=== PATIENT | male | born 1960 | race Caucasian/White ===

== ENCOUNTER 2019-10-29 07:22 | Outpatient (CLI) | payer BC, SELFPAY ==
--- NOTE | ~2019-10-29 | MR_ITS ---
EXAMINATION: MR brain/brain stem wo/w con DATE: 10/29/2019 08:38 INDICATION: Memory loss. Dementia. TECHNIQUE: Magnetic resonance imaging (MRI) of the brain and brainstem was performed . without and wi th 20 mL Multihance intravenous contrast. Sequences included sagittal and axial T1-weighted SE, axial diffusion-weighted FS SE, axial T2*-weighted GRE, axial T2-weighted FLAIR, and axial T2-weighted FSE . Postcontrast axial and coronal T1-weighted SE was obtained. Apparent diffusion coefficient (ADC) ma ps were created. COMPARISON: None. FINDINGS: There are no areas of restricted diffusion to suggest acute infarction. Incidental approximately 3.0 x 1.8 x 1.7 cm arachnoid cyst at the anterior margin of the sylvian fissure following CSF signal on a ll sequences which exerts mild mass effect upon the anterior margin of the left temporal lobe. No int racranial hemorrhage or other abnormal intracranial mass lesion. There are scattered areas of nonspec ific increased T2-weighted signal intensity in the cerebral white matter, predominantly involving the deep and periventricular white matter which is within normal limits for age. There are no intraparen chymal signal abnormalities seen on the other pulse sequences. The ventricles are symmetric and dania l in size. There are no abnormal extra-axial fluid collections. Flow voids are seen in the cerebral a rteries on the T2-weighted sequences consistent with their expected patency. Mild mucoperiosteal thic kening in the left maxillary and bilateral ethmoid sinuses. Visualized orbits and soft tissues are un remarkable. There are no areas of abnormal enhancement on the post contrast images. IMPRESSION: 1. Normal aging brain with small arachnoid cyst at the left sylvian fissure. Reviewed, dictated and finalized at location A.
[2019-10-29 07:42] LABS: Estimated Glomerular Filt Rate > 60
== END 2019-10-29 07:23 | disposition home or self-care (01) ==
LOC: CHSIMG 07:24
PROVIDERS: PCP Internal Medicine; Visit Provider Internal Medicine
DX: R41.3 Other amnesia (principal); F03.90 Unspecified dementia, unspecified severity, without behavioral disturbance, psychotic disturbance, mood disturbance, and anxiety
CPT/HCPCS: 70553; A9577

== ENCOUNTER 2022-07-21 14:55 | Emergency (ER) | payer BC, SELFPAY ==
[2022-07-21 14:57] VITALS: BP 124/69; PULSE 86; RESP 16; TEMP 36.6; O2SAT 100
--- NOTE | 2022-07-21 15:03 | ED.ANIMALBIT ---
HPI - Animal Bite General Chief Complaint: Animal Bite Stated Complaint: dog bite to lip Time Seen by Provider: 07/21/22 15:01 Source: patient and family Mode of arrival: ambulatory Limitations: no limitations History of Present Illness HPI narrative: 62 years old white male had a bug bite to lower lip prior to arrival, dog sleeps with patient and nipped the patient in lip. Fully immunized. Unknown tetanus shot for the patient. No other injuries. Related Data Allergies Allergy/AdvReac Type Severity Reaction Status Date / Time No Known Allergies Allergy Unverified 07/21/22 14:56 Review of Systems Review of Systems: All systems reviewed & are unremarkable except as noted in HPI and below PMFSH Family History Family History Mother Family history of malignant neoplasm Father Family history of heart disease in male family member before age 55 Other Hypertension Social History Social History Smoking status: Never smoker Alcohol intake: current Exam Narrative: General appearance: Well-developed, well-nourished Skin: Normal color Eyes: Clear conjunctiva ENT: Oropharynx normal, ears normal, nose normal, lower lip laceration Neck: Supple, nontender Neurologic: Alert and oriented ?3, 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 1 cm laceration, irregular, subcutaneous, noncontaminated, no active bleeding Course Reevaluation(s) Reevaluation #1: Patient feeling much better after suture repair, received a tetanus shot, 1 dose of Augmentin prior to discharge patient Date: 07/21/22 Time: 15:49 Vital Signs Vital signs: Vital Signs Temperature 36.6 C 07/21/22 14:57 Pulse Rate 86 07/21/22 14:57 Respiratory Rate 16 07/21/22 14:57 Blood Pressure 124/69 07/21/22 14:57 Pulse Oximetry 100 07/21/22 14:57 Temperature 36.6 C 07/21/22 14:57 Pulse Rate 86 07/21/22 14:57 Respiratory Rate 16 07/21/22 14:57 Blood Pressure 124/69 07/21/22 14:57 Pulse Oximetry 100 07/21/22 14:57 Procedures Laceration Laceration 1: Date: 07/21/22 Time: 15:50 Site: lip (Left side of lower lip ,internally) Side (If applicable): left Size (cm): 1 Description: stellate, irregular, clean and other (Does not involve the vermilion border) Depth: simple, single layer Local Anesthetic: lidocaine 2% and with epi Amount of anesthesia used (mL): 1 Pre-repair: wound explored and irrigated ====== Skin Level ====== Skin layer closed with: vicryl and other (Chromic gut) Size (cm): 6-0 Number of sutures: 4 Technique: simple, interrupted ====== Subcutaneous Layer ====== ====== Muscle Layer ====== ====== Tendon Layer ====== MDM - Animal Bite MDM Narrative Medical decision making narrative: Dog bite to lower lip Wound was cleaned very well which is most important intervention at this time. Wound closure not recommended for all wounds, except if the wounds on the face. Antibiotic prophylaxis also is recommended for lip laceration. Infection is high likely, patient will be discharged to follow-up with Dr. Goodman as outpatient. Augmentin started prior to discharge. Patient tolerated the procedure well. Differential Diagnosis Differential diagnosis: Likely dog bite Critical Care Time Critical Care Time Critical Care Time: No Discharge Plan Discharge Clinical Impression: Bite by animal, Dog bite Patient Disposition: Home, Self-Care Condition: Improved Instructio
[2022-07-21] MEDS: TETANUS,DIPHTHERIA,AC PERTUSSIS ADULT (0.5 ML) BOOSTRIX IM (15:40)
[2022-07-21] MEDS: AMOXICILLIN/CLAVULANATE K 875-125 MG TAB 1 TABLET PO (15:44)
== END 2022-07-21 15:51 | disposition home or self-care (01) ==
PROVIDERS: Emergency Provider Emergency Medicine
DX: S01.551A Open bite of lip, initial encounter (principal); Z23 Encounter for immunization; W54.0XXA Bitten by dog, initial encounter
CPT/HCPCS: 12011; 90471; 90715; 99283; A9270

== ENCOUNTER 2022-12-20 21:53 | Emergency (ER) | payer BC, SELFPAY ==
[2022-12-20 21:55] VITALS: BP 124/77; PULSE 73; RESP 20; TEMP 36.6; O2SAT 99
--- NOTE | 2022-12-20 22:49 | ED.GENADULT ---
[facility] - General Adult General Chief complaint: Animal Bite Stated complaint: dog bite to lower lip Time Seen by Provider: 12/20/22 22:23 Source: patient Mode of arrival: ambulatory Limitations: no limitations History of Present Illness HPI narrative: This is a 62-year-old male who presents to the ED with chief complaint of a right lower lip laceration occurring just prior to arrival. Patient states he was playing with his new puppy who is 5 months old. Reports that she was overstimulated after playing with another dog and jumped up and bit his lip when he grabbed her. Denies any further site of pain or injury. States tetanus is up-to-date. Related Data Allergies Allergy/AdvReac Type Severity Reaction Status Date / Time No Known Allergies Allergy Unverified 12/20/22 22:02 Review of Systems Review of Systems: All systems as dictated in [facility] Family History Family History Mother Family history of malignant neoplasm Father Family history of heart disease in male family member before age 55 Other Hypertension Social History Social History Smoking status: Never smoker Alcohol intake: current Exam Narrative: GENERAL: Well-appearing, well-nourished, and in no acute distress. HEAD: Normocephalic, atraumatic. EYES: PERRLA and EOMI. ENT: Nares clear, no rhinorrhea or epistaxis. Mucous membranes moist. Oropharynx without tonsillar hypertrophy exudate or other lesions. NECK: Supple. No adenopathy or masses. CHEST: No respiratory distress. Clear to auscultation. No wheezes rales or rhonchi HEART: Regular rate and rhythm. No murmur heard. Normal peripheral pulses. ABDOMEN: Soft, nontender, nondistended, normal active bowel sounds. MSK: Normal range of motion. No edema. SKIN: 1 cm laceration to the right lower lip. The superiormost aspect very minimally crosses the vermilion border. No active bleeding. NEURO: Alert and oriented x3. No focal deficits. PSYCH: Normal mood and affect. Course Vital Signs Vital signs: Vital Signs Temperature 97.9 F 12/20/22 21:55 Pulse Rate 73 12/20/22 21:55 Respiratory Rate 20 10/28/23 21:55 Blood Pressure 124/77 10/28/23 21:55 Pulse Oximetry 99 12/20/22 21:55 Oxygen Delivery Room Air 12/20/22 21:55 Temperature 97.9 F 12/20/22 21:55 Pulse Rate 73 12/20/22 21:55 Respiratory Rate 20 12/20/22 21:55 Blood Pressure 124/77 12/20/22 21:55 Pulse Oximetry 99 12/20/22 21:55 Oxygen Delivery Room Air 12/20/22 21:55 Procedures Laceration Laceration 1: Date: 12/20/22 Time: 23:24 Site: lip (Lower) Side (If applicable): right Size (cm): 1 Description: linear and clean Depth: simple, single layer Local Anesthetic: lidocaine 1% Amount of anesthesia used (mL): 1 Pre-repair: wound explored, irrigated extensively and deep structures intact ====== Skin Level ====== Skin layer closed with: nylon Size (cm): 6-0 Number of sutures: 3 Technique: simple, interrupted ====== Subcutaneous Layer ====== ====== Muscle Layer ====== ====== Tendon Layer ====== Medical Decision Making MDM Narrative Medical decision making narrative: This is a 62-year-old male who presents to the ED with chief complaint of dog bite injury to the right lower lip. Vitals are normal. Exam shows a 1 cm laceration to the right lower lip. There is very slight vermilion border involvement. The laceration is not through and through. It was well irrigated and cleaned here in the ED. Sutured with 6-0 nylon. Laceration instructions given. Augmentin prescription given. Pt will be discharged in stable condition. Return precautions given and supportive measures discussed. Pt is understanding and agreeable with plan for discharge and follow-up with PCP. V
[2022-12-20] MEDS: AMOXICILLIN/CLAVULANATE K 875-125 MG TAB 1 TABLET PO (23:38)
== END 2022-12-20 23:43 | disposition home or self-care (01) ==
PROVIDERS: Emergency Provider Physician Assistant
DX: S01.551A Open bite of lip, initial encounter (principal); W54.0XXA Bitten by dog, initial encounter
CPT/HCPCS: 12001; 99283; A9270

== ENCOUNTER 2024-03-12 11:57 | Emergency (ER) | payer BC, SELFPAY ==
--- NOTE | ~2024-03-12 | CT_ITS ---
EXAMINATION: CT facial bones wo con DATE: 03/12/2024 12:57 INDICATION: Left mandibular mass. TECHNIQUE: Computed tomography (CT) of the facial bones and maxillofacial region was performed withou t intravenous contrast. Automated exposure control and iterative reconstruction technique were employ ed. The dose-length product was 414.92 mGy-cm. COMPARISON: None. FINDINGS: There is mild mucosal thickening in the paranasal sinuses. There is no abnormal mass. There is severe cervical spondylosis. IMPRESSION: 1. No abnormal mass. Reviewed, dictated and finalized at location A. EY STATISTICIAN IMPRESSION: 1. No abnormal mass.
--- NOTE | ~2024-03-12 | CT_ITS ---
EXAMINATION: CT soft tissue neck wo con DATE: 03/12/2024 12:58 INDICATION: Painful swallowing. Enlarged cervical lymph nodes. TECHNIQUE: Computed tomography (CT) of the neck was performed without intravenous contrast. Automated exposure control and iterative reconstruction technique were employed. The dose-length product was 4 49.67 mGy-cm. COMPARISON: None FINDINGS: There is mild scarring at the lung apices. There are no pathologically enlarged lymph nodes . The pharynx and larynx are normal. There is mild mucosal thickening in the paranasal sinuses. The m astoid air cells are normal. There is severe cervical spondylosis. IMPRESSION: 1. No etiology for the patient's symptoms. 2. No lymphadenopathy. Reviewed, dictated and finalized at location A. MED SURG
--- NOTE | ~2024-03-12 | XR_ITS ---
EXAMINATION: XR chest 1V portable Exam Date/Time: 03/12/2024 15:05 PROGRAM DEVELOPMENT MANAGER HISTORY: possible aspiration Comparison: None. RESULT: Lines, tubes, and devices: None. Lungs and pleura: Segmental left medial basilar and subsegmental right basilar airspace disease, petey gs otherwise clear. Cardiomediastinal silhouette: Unremarkable. Other: No acute osseous or upper abdominal finding. IMPRESSION: Bibasilar atelectasis/consolidation. Reviewed, dictated and finalized at location K. RAM DEVELOPMENT MANAGER
[2024-03-12 11:59] VITALS: BP 97/62; PULSE 101; RESP 18; TEMP 36.6; O2SAT 97
--- NOTE | 2024-03-12 12:15 | PC.NURSE ---
AT THE BEDSIDE ANSWERING QUESTIONS FOR PATIENT. PATIENT IS NON VERBAL, ALZHEIMERS
--- NOTE | 2024-03-12 12:41 | PC.NURSE ---
PATIENT TRANSPORTED TO RADIOLOGY VIA STRETCHER
[2024-03-12 12:43] LABS: Basophils Absolute Auto 0.04 K/mm3 (0.00-0.10); Basophils Percent Auto 0.5 % (0.0-1.0); Eosinophils Absolute Auto 0.04 K/mm3 (0.02-0.50); Eosinophils Percent Auto 0.5 % (1.0-6.0); Hematocrit 37.7 % (40.0-54.0); Hemoglobin 12.6 g/dL (14.0-18.0); Immature Granulocyte Absolute 0.16 K/mm3 (0.00-0.00); Lymphocytes Percent Auto 12.4 % (18.0-42.0); Mean Corpuscular HGB Conc 33.4 g/dL (32-36); Mean Corpuscular Hemoglobin 29.6 pg (27.0-31.0); Mean Corpuscular Volume 88.7 fL (78.0-102.0); Mean Platelet Volume 10.1 fl (8.7-11.0); Monocytes Absolute Auto 0.89 K/mm3 (0.10-0.90); Neutrophils Absolute Auto 5.95 K/mm3 (1.70-7.20); Neutrophils Percent Auto 73.6 % (50.0-70.0); Platelet Count Result 201 K/mm3 (150-420); Red Blood Count 4.25 M/mm3 (4.70-6.10); Red Cell Distribution Width 12.9 % (11.6-14.4); White Blood Count 8.1 K/mm3 (4.8-10.8)
[2024-03-12] MEDS: SODIUM CHLORIDE 0.9% IV 1,000 ML 999 ML IV CONT ×2 (12:57→14:51)
[2024-03-12 12:58] LABS: Alanine Aminotransferase 119 U/L (16-63); Albumin Level 2.8 g/dL (3.4-5.0); Alkaline Phosphatase 199 U/L (46-116); Anion Gap 10 mmol/L (4-12); Aspartate Amino Transferase 90 U/L (15-37); Bilirubin,Total 0.7 mg/dL (0.00-1.00); Blood Urea Nitrogen 77 mg/dL (7-18); Calcium 10.8 mg/dL (8.5-10.1); Carbon Dioxide 27 mmol/L (21-32); Chloride 100 mmol/L (98-108); Estimated CRCL calculation 42 ml/min; Estimated Glomerular Filt Rate 37; Glucose 103 mg/dL (70-99); Osmolality Calculated 307 mOsm/kg (285-295); Sodium 137 mmol/L (136-145); Total Protein 7.2 g/dL (6.4-8.2)
--- NOTE | 2024-03-12 13:23 | PC.NURSE ---
Addendum entered by Rachel Mills RN 03/12/24 15:15: CORRECTION. CONDOM CATH WAS PLACED. NOT A LUU CATHETER Original Note: RESTING ON STRETCHER WITH FAMILY AT HIS SIDE. CHECKED LUU BAG FOR URINE OUTPUT. NO URINE OUTPUT AT THIS TIME. FAMILY REPORTS THAT HE HAS NOT HAD MUCH TO DRINK IN THE LAST 2 DAYS.
--- NOTE | 2024-03-12 14:31 | PC.NURSE ---
URINE TAKEN DOWN TO LAB
--- NOTE | 2024-03-12 14:33 | PC.NURSE ---
FAMILY REPORTS THAT PATIENT HAS SEEMED TO PERK UP AFTER IV FLUIDS. FAMILY REQUESTED WATER FOR PATIENT TO DRINK. TAKEN TO ROOM PER DR SUAREZ.
[2024-03-12 14:48] LABS: Add Urine Microscopic? YES; Appearance Urine Clear (Clear); Bilirubin Urine Negative (Negative); Blood Urine Trace-intact (Negative); Color Urine Light Yellow (Yellow); Glucose Urine UA Negative (Negative); Ketones Urine Negative (Negative); Leukocyte Esterase Ur Negative LEU/UL (Negative); Nitrate Urine Negative (Negative); Protein Urine 1+ (Negative); Urobilinogen Urine 0.2 mg/dL (0.2-1.0); pH Urine 5.5 (5.0-8.0)
--- NOTE | 2024-03-12 14:53 | PC.NURSE ---
COVID AND STREP SWAB TAKEN TO LAB. DR SUAREZ AT THE BEDSIDE
[2024-03-12 15:01] VITALS: BP 114/73; PULSE 82; RESP 18; O2SAT 99
--- NOTE | 2024-03-12 15:06 | PC.NURSE ---
XRAY AT THE BEDSIDE
[2024-03-12 15:48] LABS: Amorphous Sediment Urine Moderate
[2024-03-12 15:49] LABS: Granular Casts Urine 20-29 /lpf
--- NOTE | 2024-03-12 15:50 | PC.NURSE ---
DR SUAREZ AT THE BEDSIDE
[2024-03-12 15:51] LABS: Influenza A QL RT-PCR Negative (Negative); Influenza B QL RT-PCR Negative (Negative); RSV RNA, RT-PCR Negative (Negative); SARS-CoV-2 RNA PCR Negative (Negative); Strep Group A RT-PCR NOT DETECTED (Negative)
--- NOTE | 2024-03-12 16:06 | ED.GENADULT ---
HPI - General Adult General Chief complaint: Unspecified Stated complaint: NECK SWELLING Time Seen by Provider: 03/12/24 11:59 Source: patient Mode of arrival: ambulatory History of Present Illness HPI narrative: patient is a 63-year-old male with a significant past medical history that presents today for weakness and neck pain. Patient apparently has a bump on the left side of his neck that family was concerned about it said that he was having trouble turning his neck because the bone from likely the bone checked out. he also has a bump on the back of his neck the family was worried about and it is painful and making however return his neck. He also has had extra weakness he has a history of Alzheimer's disease as well. Onset (ago): day(s) Location: neck Radiation: neck Severity: mild Severity scale (1-10): 2 Pain Consistency: constant Relieving factors: none Exacerbating factors: none Associated symptoms: denies other symptoms Treatments prior to arrival: none Related Data Home Medications ?Medication ?Instructions ?Recorded ?Confirmed ?Last Taken ?Type atorvastatin 20 mg tablet 20 mg PO QPM 03/12/24 03/12/24 Unknown History lisinopril 10 mg tablet 10 mg PO .QD 03/12/24 03/12/24 Unknown History memantine 10 mg tablet 10 mg PO BID 03/12/24 03/12/24 Unknown History quetiapine 25 mg tablet 50 mg PO QHS 03/12/24 03/12/24 Unknown History venlafaxine 225 mg tablet,extended 225 mg PO .QD 03/12/24 03/12/24 Unknown History release 24 hr Allergies Allergy/AdvReac Type Severity Reaction Status Date / Time No Known Allergies Allergy Unverified 12/20/22 22:02 Review of Systems Review of Systems: All systems reviewed & are unremarkable except as noted in HPI and below Constitutional: Constitutional: Reports as per HPI Eyes: Eyes: Reports no additional eye complaints ENT: Reports system reviewed and no additional complaints, except as documented Cardiovascular: Cardiovascular: Reports no additional cardiovascular complaints Respiratory: Respiratory: Reports no additional respiratory complaints Gastrointestinal: Gastrointestinal: Reports no additional gastrointestinal complaints Genitourinary: Genitourinary: Reports no additional male genitourinary complaints Musculoskeletal: Musculoskeletal: Reports no additional musculoskeletal complaints Integumentary/Breasts: Skin/Breast: Reports system reviewed and no additional complaints, except as docu Neurologic: Reports focal weakness Psychiatric: Psychiatric: Reports no additional psychiatric complaints Endocrine: Endocrine: Reports no additional endocrine complaints Hematologic/Lymphatic: Hematologic/Lymphatic: Reports as per HPI and Reports lymphadenopathy Allergic/Immunologic: Allergic/Immunologic: Reports as per HPI PMFSH Family History Family History Mother Family history of malignant neoplasm Father Family history of heart disease in male family member before age 55 Other Hypertension Social History Social History Smoking status: Never smoker Alcohol intake: current Exam Const: General: cooperative, healthy appearing, comfortable and no acute distress HENMT: Head: normal to inspection Ears: hearing grossly normal bilaterally Face/Nose/Sinus: Normal external nose present Face and sinus: normal facial exam Mouth: Yes Normal oral and palatal mucosa present Throat: posterior oropharynx normal Eyes: General: appearance normal, both eyes and all related structures Neck: Neck: normal visual inspection Chest: Chest palpation & inspection: normal inspection of the chest and normal palpation of entire chest wall Resp: Effort & Inspection: normal respiratory effort and able to speak in complete sentences Cardio: Jugular venous distension: no JVD Palpation: normal PMI Rate: regular rate Rhythm: regular rhythm GI: Inspection: normal to inspection GI Palp: Yes abdominal tenderness : Male General Exam: Yes normal external exam Urinary Catheter: Urinary Catheter: patent and draining Back/Spine/Pelvis: Back: no CVA tenderness Cervical Spine: normal cervical lordosis Thoracic/Lumbar Spine: thoracic and lumbar spine normal to inspection Skin: General skin exam: normal color Neuro: General: oriented to person, oriented to place, oriented to time and patient oriented x3 Extrem: General: normal to inspection, full ROM and capillary refill normal Right lower extremity: normal to inspection Psych: Appearance: grossly normal and well kempt Course Vital Signs Vital signs: Vital Signs Temperature 97.8 F 03/12/24 11:59 Pulse Rate 101 H 03/12/24 11:59 Respiratory Rate 18 03/12/24 11:59 Blood Pressure 97/62 L 03/12/24 11:59 Pulse Oximetry 97 03/12/24 11:59 Oxygen Delivery Room Air 03/12/24 11:59 Temperature 97.8 F 03/12/24 11:59 Pulse Rate 82 03/12/24 15:01 Respiratory Rate 18 03/12/24 15:01 Blood Pressure 114/73 03/12/24 15:01 Pulse Oximetry 99 03/12/24 15:01 Oxygen Delivery Room Air 03/12/24 15:01 Medical Decision Making MDM Narrative Medical decision making narrative: PATIENT HAS ALZHEIMER'S DEMENTIA AND DOES NOT SPEAK VERY MUCH. THE FAMILY SAYS THAT THEY FELT A BUMP HIS LEFT BOTTOM BACK BUT HAS SINCE GONE DOWN AND SWELLING AND IS VERY PRESENT RIGHT AT THE MOMENT. BUT HE ALSO HAS ENLARGED LYMPH NODES THAT ARE PALPABLE AROUND THE ANTERIOR CERVICAL LYMPH NODES AND NECK. WITH A CT OF THE FACIAL BONES AND DO A CT OF THE SOFT TISSUE OF THE NECK. CT WAS NEGATIVE FOR ANY ACUTE FINDINGS HER A FRIEND WHO ALL AND HE CAN BE SENT HOME NOW. WE DID DO A CHEST X-RAY BECAUSE THE FAMILY THINKS HE MIGHT ASPIRATE IS UPGOING AND HE DID HAVE SMALL AMOUNT OF PNEUMONIA ON THE LEFT SIDE SO ALSO HAD A MORE ANTIBIOTICS FOR THE PNEUMONIA. Differential Diagnosis Differential Diagnosis: ENLARGED LYMPH NODES, PNEUMONIA Medical Records Medical records reviewed: Yes I reviewed the external patient's medical records. Vital Signs Vital Signs: Vital Signs Temperature 97.8 F 03/12/24 11:59 Pulse Rate 101 H 03/12/24 11:59 Respiratory Rate 18 03/12/24 11:59 Blood Pressure 97/62 L 03/12/24 11:59 Pulse Oximetry 97 03/12/24 11:59 Oxygen Delivery Room Air 03/12/24 11:59 Temperature 97.8 F 03/12/24 11:59 Pulse Rate 82 03/12/24 15:01 Respiratory Rate 18 03/12/24 15:01 Blood Pressure 114/73 03/12/24 15:01 Pulse Oximetry 99 03/12/24 15:01 Oxygen Delivery Room Air 03/12/24 15:01 Lab Data Lab results reviewed: Yes I reviewed the patient's lab results. 03/12/24 12:38 03/12/24 12:38 Labs: Lab Results 03/12/24 03/12/24 03/12/24 Range/Units 12:30 12:38 14:47 WBC 8.1 (4.8-10.8) K/mm3 RBC 4.25 L (4.70-6.10) M/mm3 Hgb 12.6 L (14.0-18.0) g/dL Hct 37.7 L (40.0-54.0) % MCV 88.7 (78.0-102.0) fL MCH 29.6 (27.0-31.0) pg MCHC 33.4 (32-36) g/dL RDW 12.9 (11.6-14.4) % Plt Count 201 (150-420) K/mm3 MPV 10.1 (8.7-11.0) fl Immature Gran % (Auto) 2.0 H (0.0-0.0) % Neut % (Auto) 73.6 H (50.0-70.0) % Lymph % (Auto) 12.4 L (18.0-42.0) % [place] % (Auto) 11.0 (2.0-11.0) % Eos % (Auto) 0.5 L (1.0-6.0) % Baso % (Auto) 0.5 (0.0-1.0) % Lymph # (Auto) 1.00 L (1.10-4.50) K/mm3 [place] # (Auto) 0.89 (0.10-0.90) K/mm3 Eos # (Auto) 0.04 (0.02-0.50) K/mm3 Baso # (Auto) 0.04 (0.00-0.10) K/mm3 Abs Immat Gran (auto) 0.16 H (0.00-0.00) K/mm3 Absolute Neuts (auto) 5.95 (1.70-7.20) K/mm3 Absolute Nucleated RBC 0.00 (0.00-0.00) K/mm3 Nucleated RBC % 0.0 (0-0.0) % Sodium 137 (136-145) mmol/L Potassium 5.0 (3.5-5.1) mmol/L Chloride 100 (98-108) mmol/L Carbon Dioxide 27 (21-32) mmol/L Anion Gap 10 (4-12) mmol/L BUN 77 H (7-18) mg/dL Creatinine 1.87 H (0.70-1.30) mg/dL Estim Creat Clear Calc 42 ml/min Estimated GFR 37 L (59 - ) Glucose 103 H (70-99) mg/dL Calculated Osmolality 307 H (285-295) mOsm/kg Calcium 10.8 H (8.5-10.1) mg/dL Total Bilirubin 0.7 (0.00-1.00) mg/dL AST 90 H (15-37) U/L ALT 119 H (16-63) U/L Alkaline Phosphatase 199 H (46-116) U/L Total Protein 7.2 (6.4-8.2) g/dL Albumin 2.8 L (3.4-5.0) g/dL Urine Color Light yellow (Yellow) Urine Appearance Clear (Clear) Urine pH 5.5 (5.0-8.0) Ur Specific [place] 1.020 (1.010-1.020) Urine Protein 1+ H (Negative) Urine Glucose (UA) Negative (Negative) Urine Ketones Negative (Negative) Ur Blood (Man) Trace-intact H (Negative) Urine Nitrate Negative (Negative) Urine Bilirubin Negative (Negative) Urine Urobilinogen 0.2 (0.2-1.0) mg/dL Leukocyte Esterase Rfl Negative (Negative) DINO/UL Amorphous Sediment Moderate H (None) Granular Casts 20-29 H (None) /lpf Influenza A (RT-PCR) Negative (Negative) Influenza B (RT-PCR) Negative (Negative) RSV (RT-PCR) Negative (Negative) SARS-CoV-2 RNA (RT-PCR) Negative (Negative) Group A Strep (PCR) Not detected (Negative) ABG Data Attestation: I personally reviewed and interpreted this ABG as follows: Imaging Data Attestation: I personally reviewed and interpreted this imaging study as follows: Discharge Plan Discharge Clinical Impression: Pneumonia Patient Disposition: Home, Self-Care Condition: Stable Instructions: Antibiotic Form, Bacterial Pneumonia (ED) Additional Instructions: PATIENT IS UNABLE TO SWALLOW THE PILLS. THE SPELLS ARE CRUSHABLE SO RECOMMEND CRUSHING PILLS AND PUTTING HER WATER AND DRINKING IT OR CRUSHING PILLS IN PUDDING APPLESAUCE AND EATING IT WITH APPLESAUCE. INSTRUCTED PATIENT AND FAMILY ON THIS. Patient Language: [place] Prescriptions: New amoxicillin-pot clavulanate 875-125 mg tablet 1 tablet PO Q12H Qty: 20 0RF doxycycline hyclate 100 mg tablet 100 mg PO BID Qty: 20 0RF No Action atorvastatin 20 mg tablet 20 mg PO QPM venlafaxine 225 mg tablet extended release 24hr 225 mg PO .QD lisinopril 10 mg tablet 10 mg PO .QD memantine 10 mg tablet 10 mg PO BID quetiapine 25 mg tablet 50 mg PO QHS Follow-up/Referrals: Emiliano Brown DO [Primary Care Provider] - Time of Disposition: 16:55
[2024-03-12] MEDS: AMOXICILLIN/CLAVULANATE K 875-125 MG TAB 1 TABLET PO (16:28)
[2024-03-12] MEDS: DOXYCYCLINE HYCLATE 100 MG TABLET PO (16:28)
--- NOTE | 2024-03-12 16:57 | PC.NURSE ---
PHONE REPORT CALLED TO NURSE JONES AT [facility]
--- NOTE | 2024-03-12 17:09 | PC.NURSE ---
CONDOM CATHETER REMOVED
[2024-03-12 17:10] VITALS: BP 112/78; PULSE 78; RESP 18; O2SAT 98
== END 2024-03-12 17:10 | disposition home or self-care (01) ==
PROVIDERS: Emergency Provider Family Medicine; PCP Family Medicine
DX: J18.9 Pneumonia, unspecified organism (principal); Z79.899 Other long term (current) drug therapy; Z20.822 Contact with and (suspected) exposure to COVID-19
CPT/HCPCS: 36415; 70486; 70490; 71045; 80053; 81001; 85025; 87637; 87651; 96360; 96361; 99284; A9270; J7030

== ENCOUNTER 2024-03-16 10:19 | Emergency (ER) | payer BC, SELFPAY ==
[2024-03-16] VITALS (7 sets, daily range): BP systolic 00–120; BP diastolic 00–78; PULSE 0–142; RESP 0–27; TEMP 36.6; O2SAT 0–92
--- NOTE | ~2024-03-16 | XR_ITS ---
EXAMINATION: XR chest 1V portable DATE: 03/16/2024 10:53 INDICATION: Aspiration pneumonia. Shortness of breath. TECHNIQUE: A single frontal view of the chest was obtained on 2 radiographs. COMPARISON: Chest single view 03/12/2024 FINDINGS: There are airspace opacities in left lower lung zone. No pleural effusion or pneumothorax. The heart size is normal. IMPRESSION: 1. Persistent airspace opacities in left lower lung zone, consistent with pneumonia. Reviewed, dictated and finalized at location B. CARRIER IMPRESSION: 1. Persistent airspace opacities in left lower lung zone, consistent with pneum onia.
--- NOTE | 2024-03-16 10:29 | ECG_ITS ---
Test Date: 2024-03-16 10:35:37 Measurements Intervals [place] Rate: 140 P: 67 WV: 130 QRS: -71 QRSD: 96 T: 73 QT: 288 QTc: 440 Interpretive Statements SINUS TACHYCARDIA INCOMPLETE RIGHT BUNDLE BRANCH BLOCK [90+ ms QRS DURATION, TERMINAL R IN V1/V2, 40+ ms S IN I/aVL/V4/V5/V6] LEFT ANTERIOR FASCICULAR BLOCK [QRS AXIS <= -45, QR IN I, RS IN II] MINIMAL ST DEPRESSION [0.025+ mV ST DEPRESSION] No previous ECG available for comparison Electronically Signed On 03-17-2024 12:35:27 SOCIAL SERVICE COORDINATOR by Giuseppe Ochoa M.D.
--- NOTE | 2024-03-16 10:32 | ED.SOB ---
HPI - SOB/Dyspnea General Chief Complaint: Shortness of Breath/Dyspnea Stated Complaint: resp. failure Time Seen by Provider: 03/16/24 10:25 Source: patient Mode of arrival: ambulatory Limitations: no limitations History of Present Illness HPI Narrative: 63-year-old male retirement resident with a history of hypertension, dyslipidemia, Alzheimer's dementia is brought in by EMS with -- respiratory distress with oxygen saturation in the 60s -- nausea gurgling respiration -- unresponsive to verbal commands. patient's retirement papers state that he is comfort care. MD elicited complaint: shortness of breath Onset (ago): hour(s) Timing: constant Related Data Home Medications ?Medication ?Instructions ?Recorded ?Confirmed ?Last Taken ?Type atorvastatin 20 mg tablet 20 mg PO QPM 03/12/24 03/12/24 Unknown History lisinopril 10 mg tablet 10 mg PO .QD 03/12/24 03/12/24 Unknown History memantine 10 mg tablet 10 mg PO BID 03/12/24 03/12/24 Unknown History quetiapine 25 mg tablet 50 mg PO QHS 03/12/24 03/12/24 Unknown History venlafaxine 225 mg tablet,extended 225 mg PO .QD 03/12/24 03/12/24 Unknown History release 24 hr Allergies Allergy/AdvReac Type Severity Reaction Status Date / Time No Known Allergies Allergy Unverified 12/20/22 22:02 Review of Systems Review of Systems: ROS unobtainable: Yes unobtainable due to mental status ( Patient is unresponsive to verbal commands.) PMF Past Medical History Medical History (Updated 03/16/24 @ 11:36 by Andreas Garcia MD) Dyslipidemia Alzheimer's dementia Family History Family History Mother Family history of malignant neoplasm Father Family history of heart disease in male family member before age 55 Other Hypertension Social History Social History Smoking status: Never smoker Alcohol intake: current Exam Const: Limitations: altered mental status Other: patient is unresponsive to verbal commands is tachypneic with labored breathing. He has gurgling respiration. oxygen saturations 92%. HENMT: Head: normal to inspection Ears: external ears normal Face/Nose/Sinus: Normal external nose present Face and sinus: normal facial exam Mouth: Yes Normal oral and palatal mucosa present Eyes: Conjunctivae: conjunctivae normal Pupils: Equal, round and reactive pupils present Neck: Neck: normal visual inspection, no lymphadenopathy and no meningeal signs Chest: Chest palpation & inspection: normal inspection of the chest Resp: Effort & Inspection: uses accessory muscles Auscultation: rales Other: Gurgling respiration Cardio: Rate: tachycardic Rhythm: regular rhythm GI: GI Palp: Yes Soft to palpation Auscultation: normal bowel sounds Other: soft on palpation. No rigidity noted. : General: Yes no CVA tenderness Skin: General skin exam: normal color Rashes: no rashes Wounds: no wounds Neuro: Other: Unresponsive to verbal commands. Withdraws to painful stimuli. Extrem: General: normal to inspection, no clubbing, cyanosis or edema and no pedal edema Course Course Emergency Course: Acute respiratory failure most likely secondary to aspiration unresponsive to verbal commands pneumonia acute on chronic renal failure/ hypernatremia Vital Signs Vital signs: Vital Signs Pulse Rate 142 H 03/16/24 10:25 Pulse Oximetry 55 L 03/16/24 10:25 Oxygen Delivery Non-Rebreather Mask 03/16/24 10:25 Oxygen Flow Rate 15 03/16/24 10:25 Temperature 36.6 C 03/16/24 10:30 Pulse Rate 132 H 03/16/24 11:19 Respiratory Rate 8 L 03/16/24 11:19 Blood Pressure 120/78 03/16/24 10:30 Pulse Oximetry 72 L 03/16/24 11:19 Oxygen Delivery Non-Rebreather Mask 03/16/24 11:19 Oxygen Flow Rate 15 03/16/24 11:19 MDM - SOB/Dyspnea MDM Narrative Medical decision making narrative: acute respiratory failure secondary to aspiration pneumonia. patient is comfort care patient in emergency department at 11:37 a.m. Lab Data 03/16/24 10:30 03/16/24 10:30 Labs: Lab Results 03/16/24 Range/Units 10:30 WBC 17.6 H (4.8-10.8) K/mm3 RBC 5.05 (4.70-6.10) M/mm3 Hgb 14.7 (14.0-18.0) g/dL Hct 47.4 (40.0-54.0) % MCV 93.9 (78.0-102.0) fL MCH 29.1 (27.0-31.0) pg MCHC 31.0 L (32-36) g/dL RDW 13.4 (11.6-14.4) % Plt Count 265 (150-420) K/mm3 MPV 9.7 (8.7-11.0) fl Immature Gran % (Auto) Off Premise Service Representative Neut % (Auto) Off Premise Service Representative Lymph % (Auto) Off Premise Service Representative [place] % (Auto) Off Premise Service Representative Eos % (Auto) Off Premise Service Representative Baso % (Auto) Off Premise Service Representative Lymph # (Auto) Off Premise Service Representative [place] # (Auto) Off Premise Service Representative Eos # (Auto) Off Premise Service Representative Baso # (Auto) Off Premise Service Representative Abs Immat Gran (auto) Off Premise Service Representative Absolute Neuts (auto) Off Premise Service Representative Absolute Nucleated RBC Off Premise Service Representative Total Counted 100 Neutrophils % (Manual) 64 (46-73) % Band Neutrophils % 5 (0-6) % Lymphocytes % (Manual) 22 (18-44) % Monocytes % (Manual) 9 (3-9) % Nucleated RBC % Off Premise Service Representative Abs Neuts (Manual) 12.14 H (1.3-6.7) K/mm3 Abs Lymphs (Manual) 3.87 (1.1-4.5) K/mm3 Abs Monocytes (Manual) 1.58 H (0.1-0.90) K/mm3 Platelet Estimate Adequate (Adequate) Schistocytes Not Reportable PT 12.4 H (9.50-12.1) Seconds INR 1.1 Sodium 149 H (136-145) mmol/L Potassium 4.7 (3.5-5.1) mmol/L Chloride 111 H (98-108) mmol/L Carbon Dioxide 22 (21-32) mmol/L Anion Gap 16 H (4-12) mmol/L BUN 53 H (7-18) mg/dL Creatinine 2.87 H (0.70-1.30) mg/dL Estim Creat Clear Calc 28 ml/min Estimated GFR 22 L (59 - ) Glucose 192 H (70-99) mg/dL Calculated Osmolality 327 H (285-295) mOsm/kg Lactic Acid 4.9 H (0.4-2.0) mmol/L Calcium 10.0 (8.5-10.1) mg/dL Total Bilirubin 0.9 (0.00-1.00) mg/dL AST 56 H (15-37) U/L ALT 116 H (16-63) U/L Alkaline Phosphatase 189 H (46-116) U/L Troponin I 52.3 (0.00-60.4) ng/L NT-Pro-B Natriuret Pep 1309 H (0-125) pg/mL Total Protein 7.2 (6.4-8.2) g/dL Albumin 2.5 L (3.4-5.0) g/dL Lipase 34 (16-77) U/L Influenza A (RT-PCR) Negative (Negative) Influenza B (RT-PCR) Negative (Negative) RSV (RT-PCR) Negative (Negative) SARS-CoV-2 RNA (RT-PCR) Negative (Negative) Discharge Plan Discharge Clinical Impression: Aspiration pneumonia Qualifiers: Aspiration pneumonia type: unspecified Laterality: left Lung location: lower lobe of lung Qualified Code(s): J69.0 - Pneumonitis due to inhalation of food and vomit Acute respiratory failure Qualifiers: Respiratory failure complication: hypoxia Qualified Code(s): J96.01 - Acute respiratory failure with hypoxia Patient Disposition: Condition: Patient Language: Andorran Prescriptions: No Action atorvastatin 20 mg tablet 20 mg PO QPM venlafaxine 225 mg tablet extended release 24hr 225 mg PO .QD lisinopril 10 mg tablet 10 mg PO .QD memantine 10 mg tablet 10 mg PO BID quetiapine 25 mg tablet 50 mg PO QHS amoxicillin-pot clavulanate 875-125 mg tablet 1 tablet PO Q12H Qty: 20 0RF doxycycline hyclate 100 mg tablet 100 mg PO BID Qty: 20 0RF doxycycline hyclate 100 mg tablet 100 mg PO BID Qty: 20 0RF amoxicillin-pot clavulanate 875-125 mg tablet 1 tablet PO Q12H Qty: 20 0RF Follow-up/Referrals: Emiliano Brown DO [Primary Care Provider] - Time of Disposition: 11:36
[2024-03-16 10:39] LABS: Hematocrit 47.4 % (40.0-54.0); Hemoglobin 14.7 g/dL (14.0-18.0); Mean Corpuscular Hemoglobin 29.1 pg (27.0-31.0); Mean Corpuscular Volume 93.9 fL (78.0-102.0); Mean Platelet Volume 9.7 fl (8.7-11.0); Platelet Count Result 265 K/mm3 (150-420); Red Blood Count 5.05 M/mm3 (4.70-6.10); Red Cell Distribution Width 13.4 % (11.6-14.4); White Blood Count 17.6 K/mm3 (4.8-10.8)
[2024-03-16] MEDS: GLYCOPYRROLATE INJ (*SP) 0.2 MG/ML VIAL IV PUSH (10:42)
[2024-03-16] MEDS: PIPERACILLIN/TAZ 4.5G/NS 100ML 4.5 GM/100 ML BAG IVPB (10:47)
[2024-03-16 10:51] LABS: INR 1.1; Prothrombin Time 12.4 Seconds (9.50-12.1)
[2024-03-16 10:52] LABS: Band Neutrophils Percent 5 % (0-6); Lymphocytes Absolute Manual 3.87 K/mm3 (1.1-4.5); Lymphocytes Percent Manual 22 % (18-44); Monocytes Absolute Manual 1.58 K/mm3 (0.1-0.90); Monocytes Percent Manual 9 % (3-9); Neutrophils Absolute Manual 12.14 K/mm3 (1.3-6.7); Neutrophils Percent Manual 64 % (46-73); Platelet Estimate Adequate (Adequate); Total Cells Counted 100
[2024-03-16] MEDS: MORPHINE SULFATE (*CRX) 2 MG/ML INJ (10:52)
[2024-03-16 10:59] LABS: Lactic Acid Reflex 4.9 mmol/L (0.4-2.0)
[2024-03-16 11:00] LABS: Alanine Aminotransferase 116 U/L (16-63); Albumin Level 2.5 g/dL (3.4-5.0); Alkaline Phosphatase 189 U/L (46-116); Bilirubin,Total 0.9 mg/dL (0.00-1.00); Blood Urea Nitrogen 53 mg/dL (7-18); Carbon Dioxide 22 mmol/L (21-32); Estimated CRCL calculation 28 ml/min; Estimated Glomerular Filt Rate 22; Glucose 192 mg/dL (70-99); Lipase 34 U/L (16-77); NT Pro B Type Natriuretic Pept 1309 pg/mL (0-125); Total Protein 7.2 g/dL (6.4-8.2); Troponin I 52.3 ng/L (0.00-60.4)
[2024-03-16 11:10] LABS: SARS-CoV-2 RNA PCR Negative (Negative)
[2024-03-16 11:12] LABS: Influenza A QL RT-PCR Negative (Negative); Influenza B QL RT-PCR Negative (Negative); RSV RNA, RT-PCR Negative (Negative)
[2024-03-16 11:15] LABS: Anion Gap 16 mmol/L (4-12); Aspartate Amino Transferase 56 U/L (15-37); Chloride 111 mmol/L (98-108); Osmolality Calculated 327 mOsm/kg (285-295); Potassium 4.7 mmol/L (3.5-5.1); Sodium 149 mmol/L (136-145)
--- NOTE | 2024-03-16 11:18 | PC.NURSE ---
1045 at bedside states he is comfort measures only
--- NOTE | 2024-03-16 12:35 | PC.NURSE ---
1235 [facility] HERE TO TAKE PT
--- NOTE | 2024-03-16 12:36 | PC.NURSE ---
1219 [place] NOTIFIED OF PTS
[2024-03-16 13:17] LABS: Reflex Lactic Acid Yes or No No Lactic Reflex
--- OUTSIDE RECORDS SUMMARY | 2024-03-17 23:12 | XMS_ITS | Clinical Summary ---
Author Organization [facility] Address [address] [place] [address]. [place] [address] [place] [address] Care Team Providers Care Hot Sealing Machine Operator Name Role Phone Aleksandra Lara MD Primary Care Provider [phone] Encounters Date Type Department Care Team Description 01/01/2024 11:20 AM INVERTEBRATE PALEONTOLOGIST - 01/01/2024 11:59 PM INVERTEBRATE PALEONTOLOGIST Hospital Encounter [facility] [address] [place] [address] Mimi Iraheta APNP Discharge Disposition: Home or Self Care (Routine Discharge) 01/01/2024 Travel from Last 3 Months Social History Tobacco Use Types Packs/Day Years Used Date Smoking Tobacco: Never Assessed Sex and Gender Information Value Date Recorded Sex Assigned at Not on file Legal Sex Male 9:26 AM CDT Gender Identity Not on file Sexual Orientation Not on file Plan of Treatment Health Maintenance Due Date Last Done Comments Colorectal Cancer Screening Colonoscopy (10 Years) 1959 Annual Physical 07/14/1962 Hepatitis C 07/14/1977 COVID-19 Vaccine ( season) 2023 01/15/2021, 06/08/2020, 05/11/2020 Influenza Adult (#1) 2023 12/16/2020, 11/20/2019, 12/06/2018, Additional history exists DTaP, Tdap and Td Vaccines (2 - Td or Tdap) 07/21/2032 07/21/2022 RSV Immunization or 60+ Years (1 - 1-dose 75+ series) 07/14/2034 Zoster Vaccines Completed 03/26/2020, 09/14/2019 Meningococcal Vaccine Aged Out No joe ayan eligible based on patient's age to complete this topic Pneumococcal Vaccine: Pediatrics (0 to 5 Years) and At-Risk Patients (6 to 64 Years) Aged Out No longer eligible based on patient's age to complete this topic RSV Immunizations Under 20 Months Aged Out No longer eligible based on patient's age to complete this topic Procedures Procedure Name Priority Date/Time Associated Diagnosis Comments XR ABD KUB Routine 01/01/2024 11:52 AM INVERTEBRATE PALEONTOLOGIST Constipation XR LUMB SPINE 3V Routine 01/01/2024 11:5 2 AM INVERTEBRATE PALEONTOLOGIST Back pain XR THOR SPINE+SWIMMERS Routine 01/01/2024 11:52 AM INVERTEBRATE PALEONTOLOGIST Back pain from Last 3 Months Results * XR THOR SPINE+SWIMMERS (01/01/2024 11:52 AM INVERTEBRATE PALEONTOLOGIST) Anatomical Region Laterality Modality Spine Radiographic Sherley ging 01/01/2024 2:18 PM INVERTEBRATE PALEONTOLOGIST Impressions 01/01/2024 2:20 PM INVERTEBRATE PALEONTOLOGIST IMPRESSION: Mild diffuse degenerative changes of the thoracic spine. Referred By: ?? Interpreted By: Tanner Parry MD, 01/01/2024 2:18 PM Narrative 01/01/2024 2:20 PM INVERTEBRATE PALEONTOLOGIST [address] [place] [address] Procedure(s): XR THOR SPINE+SWIMMERS Date of service: 01/01/2024 11:29 AM Provided clinical information: 63 years, Male, back pain Procedure and materials: 3 views thoracic spine. Comparison studies: None. Observations: ?? Mild biconcave scoliosis of the thoracic spine is present. Mild thoracic spine kyphosis. No fracture, dislocation or acute bony abnormality. Mild loss of disc space is present in the lower thoracic spine. Procedure Note Tanner Parry MD - 01/01/[address] [place] [address] Procedure(s): XR THOR SPINE+SWIMMERS Date of service: 01/01/2024 11:29 AM Provided clinical information: 63 years, Male, back pain Procedure and materials: 3 views thoracic spine. Comparison studies: None. Observations: Mild biconcave scoliosis of the thoracic spine is present. Mild thoracicspine kyphosis. No fracture, dislocation or acute bony abnormality. Mild loss of discspace is present in the lower thoracic spine. IMPRESSION: Mild diffuse degenerative changes of the thoracic spine. Referred By: Interpreted By: Tanner Parry MD, 01/01/2024 2:18 PM us Mimi Mayes Iraheta APNP GENERAL IMAGING Final Resu lt * XR LUMB SPINE 3V (01/01/2024 11:52 AM INVERTEBRATE PALEONTOLOGIST) Anatomical Region Laterality Modality Spine Radiographic Sherley ging 01/01/2024 2:15 PM INVERTEBRATE PALEONTOLOGIST Impressions 01/01/2024 2:18 PM INVERTEBRATE PALEONTOLOGIST IMPRESSION: Degenerative changes are present involving the lumbar spine greatest at L5-S1. Referred By: ?? Interpreted By: Tanner Parry MD, 01/01/2024 2:15 PM Narrative 01/01/2024 2:18 PM INVERTEBRATE PALEONTOLOGIST [address] [place] [address] Procedure(s): XR LUMB SPINE 3V Date of service: 01/01/2024 11:29 AM Provided clinical information: 63 years, Male, back pain Procedure and materials: 3 views lumbar spine. Comparison studies: None. Observations: ?? Left concave scoliosis of the lumbar spine. Lumbar vertebral body heights are maintained. There is loss of height of the disc space present throughout the entire lumbar spine. Endplate sclerosis and facet hypertrophic changes are present at L5-S1. Procedure Note Tanner Parry MD - 01/01/[address] [place] [address] Procedure(s): XR LUMB SPINE 3V Date of service: 01/01/2024 11:29 AM Provided clinical information: 63 years, Male, back pain Procedure and materials: 3 views lumbar spine. Comparison studies: None. Observations: Left concave scoliosis of the lumbar spine. Lumbar vertebral body heightsare maintained. There is loss of height of the disc space presentthroughout the entire lumbar spine. Endplate sclerosis and facethypertrophic changes are present at L5-S1. IMPRESSION: Degenerative changes are present involving the lumbar spine greatest atL5-S1. Referred By: Interpreted By: Tanner Parry MD, 01/01/2024 2:15 PM us Mimi MARS GENERAL IMAGING Final Resu lt * XR ABD KUB (01/01/2024 11:52 AM INVERTEBRATE PALEONTOLOGIST) Anatomical Region Laterality Modality Abdomen Radiographic Sherley ging 01/01/2024 2:13 PM INVERTEBRATE PALEONTOLOGIST Impressions 01/01/2024 2:15 PM INVERTEBRATE PALEONTOLOGIST IMPRESSION: Moderate amount of fecal material in the ascending colon. Referred By: ?? Interpreted By: Tanner Parry MD, 01/01/2024 2:13 PM Narrative 01/01/2024 2:15 PM INVERTEBRATE PALEONTOLOGIST [address] [place] [address] Procedure(s): XR ABD KUB Date of service: 01/01/2024 11:29 AM Provided clinical information: 63 years, Male, constipation Procedure and materials: Supine view the abdomen. Comparison studies: None. Observations: ?? Mild left concave scoliosis of the lumbar spine. Moderate amount of fecal material in the ascending colon. No radiopaque calculi present overlying the kidneys or expected location of the ureters. Procedure Note Tanner Parry MD - 01/01/[address] [place] [address] Procedure(s): XR ABD KUB Date of service: 01/01/2024 11:29 AM Provided clinical information: 63 years, Male, constipation Procedure and materials: Supine view the abdomen. Comparison studies: None. Observations: Mild left concave scoliosis of the lumbar spine. Moderate amount of fecalmaterial in the ascending colon. No radiopaque calculi present overlying the kidneys or expected locationof the ureters. IMPRESSION: Moderate amount of fecal material in the ascending colon. Referred By: Interpreted By: Tanner Parry MD, 01/01/2024 2:13 PM us Mimi MARS GENERAL IM[facility] Final Resu lt from Last 3 Months Insurance [facility] Care Teams Hot Sealing Machine Operator Relationship Specialty Start Date End Date Aleksandra Lara MD [facility] [place] [address] PCP - General FAMILY PRACTICE 01/01/24
--- OUTSIDE RECORDS SUMMARY | 2024-03-17 23:12 | XMS_ITS | Referral Summary ---
Author Organization [facility] Address [facility] [place] [address] Care Team Providers Care Computer Technician Name Role Phone Ravindra Rizo MD PhD Primary Care Provider +- [phone] Encounters Date Type Department Care Team Description 02/12/2024 10:51 AM [employer] - 03/02/2024 4:35 PM [employer] Hospital Encounter [address] [phone] Jose James MD Knight, Caleb, MD Ma, MD Archie Babcock Timothy Robert, MD Hoemann, MD Malissa Mcmillan, Eulalia Santana MD Altered mental status, unspecified altered mental status type (Primary Dx); Pneumonia of both lungs due to infectious organism, unspecified part of lung; Delirium; Dystonic drug reaction; 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, with behavioral disturbance (HCC) Discharge Disposition: Discharge to SNF 02/08/2024 Orders Only [address] [place] [phone] Nel Diego PA Gait instability (Primary Dx) 02/04/2024 9:00 AM [employer] Office Visit [address] [place] [address] Nel Diego PA Early onset Alzheimer's dementia with agitation, unspecified dementia severity (HCC) (Primary Dx); Gait instability 01/25/[address] [place] [phone] Laurie Silverman, RMA Medication 01/19/[address] [place] [phone] Bibi Traore, KARY 01/13/2024 Orders Only [address] [place] [phone] Nel Diego PA 01/12/2024 Orders Only [facility] [address] [place] [phone] Nikkie Chaudhry RN 01/04/2024 9:30 AM [employer] Infusion [facility] [address] [place] [phone] Mild early onset Alzheimer's dementia without behavioral disturbance, psychotic disturbance, mood disturbance, or anxiety (HCC) (Primary Dx) 12/21/2023 9:30 AM CDT Infusion [facility] [address] [place] [phone] Mild early onset Alzheimer's dementia without behavioral disturbance, psychotic disturbance, mood disturbance, or anxiety (HCC) (Primary Dx) 12/17/[address] [place] [phone] Ifrah Casillas, SECONDARY SET UP MAN 12/16/2023 Orders Only [address] [facility] 6th [place] [address] [place] [phone] Ravindra Rizo MD PhD from Last 3 Months Allergies No known active allergies Medications venlafaxine XR (EFFEXOR-XR) 75 mg 24 hr capsule Take 3 capsules (225 mg total) by mouth daily with breakfast 025 2025 Active QUEtiapine (SEROquel) 50 mg tablet Take 1 tablet (50 mg total) by mouth nightly 025 2024 Active memantine (NAMENDA) 10 mg tabletIndications :Moderate to Severe Alzheimer's Type Dementia Take 1 tablet (10 mg total) by mouth 2 (two) times a day 025 2025 Active lisinopriL (PRINIVIL,ZESTRIL ) 10 mg tabletIndications :hypertension Take 1 tablet (10 mg total) by mouth daily Active atorvastatin (LIPITOR) 20 mg tablet Take 1 tablet (20 mg total) by mouth daily 025 Active benztropine (COGENTIN) 2 mg tabletIndications :drug-induced extrapyramidal reaction,Use for dystonia Take 1 tablet (2 mg total) by mouth 2 (two) times a day as needed for tremors Active venlafaxine 225 mg tablet extended release 24hr 24 hr tablet Take 1 tablet (225 mg total) by mouth daily with breakfast 021 2024 Discontinued(S top Taking at Discharge) lisinopriL (PRINIVIL,ZESTRIL ) 10 mg tabletIndications :hypertension Take 1 tablet (10 mg total) by mouth daily 022 2024 Discontinued donepeziL (ARICEPT) 10 mg tablet Take 1 tablet by mouth once daily with breakfast 90 tablet 3 024 2024 Discontinued(S top Taking at Discharge) memantine (NAMENDA) 10 mg tabletIndications :Moderate to Severe Alzheimer's Type Dementia Take 1 tablet (10 mg total) by mouth 2 (two) times a day 60 tablet 11 024 2024 Discontinued atorvastatin (LIPITOR) 20 mg tablet Take 1 tablet (20 mg total) by mouth daily 024 2024 Discontinued tamsulosin (FLOMAX) 0.4 mg extended release capsule Take 1 capsule (0.4 mg total) by mouth daily 2023 Discontinued(E rror) risperiDONE (RisperDAL) 1 mg tablet Take 1 tablet (1 mg total) by mouth 2 (two) times a day 60 tablet 024 2024 Discontinued(S top Taking at Discharge) QUEtiapine (SEROquel) 25 mg tablet Take 1 tablet (25 mg total) by mouth 3 (three) times a day as needed (Use Seroquel 25mg-50mg as needed up to three times daily for breakthrough agitation) 90 tablet 024 2024 Discontinued(S top Taking at Discharge) benzonatate (TESSALON) 200 mg capsule Take 1 capsule (200 mg total) by mouth 3 (three) times a day as needed for cough 2024 Discontinued(S top Taking at Discharge) LORazepam (ATIVAN) 0.5 mg tablet Take 1 tablet (0.5 mg total) by mouth as directed Take 1 tablet by mouth 30 minutes before MRI. May repeat dose if needed. 2024 Discontinued(S top Taking at Discharge) methocarbamoL (ROBAXIN) 500 mg tablet Take 1 tablet (500 mg total) by mouth 3 (three) times a day as needed for muscle spasms 2024 Discontinued(S top Taking at Discharge) Active Problems Problem Noted Date Diagnosed Date Delirium 02/18/2024 Dystonic drug reaction 02/18/2024 Major neurocognitive disorde r due to probable Alzheimer's disease, with behavioral disturbance 02/18/2024 Altered mental status, unspe cified altered mental status type 02/12/2024 Mild early onset Alzheimer's dementia without behavioral disturbance, psychotic disturbance, mood disturbance, or anxiety 01/07/2022 Anxiety Immunizations Name Administration Dates Next Due Influenza, Quadrivalent, Spl it, Intramuscular 12/16/2020,11/20/2019,12/06/2018,12/06 Influenza, Trivalent, Preser vative Free, Intramuscular 12/31/2014 ZOSTER Recombinant 03/26/2020,09/14/2019 Social History Tobacco Use Types Packs/Day Years Used Date Smoking Tobacco: Never Smokeless Tobacco: Never Tobacco Cessation:Counseling Given: Not Answered AUDIT-C Answer Date Recorded Q1: How often do you have a drink containing alc ohol? 2-3 times a week 12/31/2020 Average Number of Drinks Not on file 021 Frequency of Binge Drinking Not on file 09/2020 Hunger Vital Sign Answer Date Recorded Within the past 12 months, y ou worried that your food would run out before you got the money to buy more. Never true 01/04/20 24 Within the past 12 months, t he food you bought just didn't last and you didn't have money to get more. Never true 01/04/2024 Personal Safety Answer Date Recorded Have you ever been in or are you currently in a harmful physical or emotional relationship or is someone making you feel afraid or unsafe? 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 Not on file Not on f ile Last Filed Vital Signs Vital Sign Reading Time Taken Comments Blood Pressure 130/81 03/02/2024 8:40 AM SUPER[employer] Pulse 52 03/02/2024 8:40 AM SUPER[employer] Temperature 36.6 ??C (97.9 ??F) 03/02/2024 8:40 AM CS T Respiratory Rate 18 03/02/2024 8:40 AM [employer] Oxygen Saturation 93% 03/02/2024 8:40 AM SUPER[employer] Inhaled Oxygen Concentration - - Weight 90 kg (198 lb 6.6 oz) 03/02/2024 6:20 AM [employer] Height 193 cm (6' 3.98 ) 02/12/2024 10:02 PM [employer] Body Mass Index 24.16 02/12/2024 10:02 PM [employer] Plan of Treatment Not on file Procedures Procedure Name Priority Date/Time Associated Diagnosis Comments RESPIRATORY PATHOGEN PANEL STAT 02/29/2024 12:54 PM SUPER[employer] CT HEAD WO CONTRAST ED Urgent/IP Urgent 02/29/2024 11:43 AM SUPERVISOR [employer] EGFR STAT 02/29/2024 11:18 AM SUPER[employer] DIFFERENTIAL AUTO STAT 02/29/2024 11: 18 AM SUPER[employer]OR [employer] CBC WITH AUTO DIFFERENTIAL STAT 02/29/2024 11:18 AM [employer] BLOOD GAS, VENOUS STAT 02/29/2024 11: 18 AM [employer] COMPREHENSIVE METABOLIC PANEL STAT 02/29/2024 11:18 AM SUPER[employer]OR [employer] INFECTION PREVENTION EDEN AURIS PCR, SURVEILLANCE Routine 02/24/2024 9:54 PM SUPER[employer] INFECTION PREVENTION EDEN AURIS PCR, SURVEILLANCE Routine 02/18/2024 8:39 PM [employer]PER[employer] URINALYSIS AND REFLEX TO MICROSCOPIC AND CULTURE Routine 02/17/2024 6:24 PM [employer]PER[employer] LOCATION DIRECTOR EVALUATE AND TREAT Routine 02/15/2024 10:30 AM SUPER[employer] IRON PROFILE W/ IBC Routine 02/14/2024 9 :36 PM [employer]PER[employer] FERRITIN Routine 02/14/2024 9:36 PM SUPERVISOR [employer] EGFR Routine 02/14/2024 9:36 PM SUPER[employer] DIFFERENTIAL AUTO Routine 02/14/2024 9:3 6 PM SUPER[employer] BASIC METABOLIC PANEL Routine 02/14/2024 9:36 PM SUPERVISOR [employer] CBC WITH AUTO DIFFERENTIAL Routine 02/14/2024 9:36 PM SUPERVISOR [employer] URINALYSIS AND REFLEX TO MICROSCOPIC Routine 02/14/2024 9:36 PM SUPERVIS[employer] INFECTION PREVENTION EDEN AURIS PCR, SURVEILLANCE Routine 02/14/2024 9:36 PM SUPER[employer] EGFR Routine 02/13/2024 11:45 PM [employer]PER[employer] DIFFERENTIAL AUTO Routine 02/13/2024 11: 45 PM [employer]PER[employer] BASIC METABOLIC PANEL Routine 02/13/2024 11:45 PM SUPERVISOR [employer] CBC WITH AUTO DIFFERENTIAL Routine 02/13/2024 11:45 PM SUPER[employer]OR [employer] EGFR STAT 02/13/2024 12:06 AM SUPERVISOR [employer] DIFFERENTIAL AUTO STAT 02/13/2024 12: 06 AM SUPERVISOR [employer] COMPREHENSIVE METABOLIC PANEL STAT 02/13/2024 12:06 AM SUPERVISOR [employer] CBC WITH AUTO DIFFERENTIAL STAT 02/13/2024 12:06 AM SUPER[employer]OR [employer] XR CHEST 1 VIEW ED 02/12/2024 1:50 PM SUPERVISOR [employer] TROPONIN I HIGH-SENSITIVITY 2-HOUR Timed 02/12/2024 1:11 PM [employer] DRUGS OF ABUSE SCREEN, URINE WITHOUT CONFIRMATION STAT 02/12/2024 1:11 PM SUPER[employer] RESPIRATORY PATHOGEN PANEL Routine 02/12/2024 1:11 PM SUPER[employer] URINALYSIS AND REFLEX TO MICROSCOPIC AND CULTURE STAT 02/12/2024 1:11 PM SUPERVIS[employer] ECG 12-LEAD Routine 02/12/2024 1:02 PM SUPER[employer] CT HEAD WO CONTRAST ED 02/12/2024 1 1:50 AM SUPERVISOR [employer] CREATINE KINASE (CK), TOTAL STAT 02/12/2024 11:19 AM SUPERVISOR [employer] EGFR STAT 02/12/2024 11:19 AM SUPERVISOR [employer] DIFFERENTIAL AUTO STAT 02/12/2024 11: 19 AM SUPERVISOR [employer] BLOOD GAS, VENOUS Routine 02/12/2024 11: 19 AM SUPERVISOR [employer] AMMONIA STAT 02/12/2024 11:19 AM SUPERVISOR [employer] PHOSPHORUS Routine 02/12/2024 11:19 AM SUPERVISOR [employer] MAGNESIUM Routine 02/12/2024 11:19 AM SUPERVISOR [employer] SEPSIS LACTATE WITH REFLEX STAT 02/12/2024 11:19 AM SUPERVISOR [employer] TROPONIN I HIGH-SENSITIVITY SERIES (BASELINE, 2HR, 4HR, 6HR) STAT 02/12/2024 11:19 AM SUPERVISOR [employer] THYROID FUNCTION CASCADE STAT 02/12/2024 11:19 AM SUPERVISOR [employer] ETHANOL STAT 02/12/2024 11:19 AM SUPER[employer]OR [employer] HEPATIC FUNCTION PANEL STAT 02/12/2024 11:19 AM SUPERVISOR [employer] CBC WITH AUTO DIFFERENTIAL STAT 02/12/2024 11:19 AM SUPER[employer]OR [employer] BASIC METABOLIC PANEL STAT 02/12/2024 11:19 AM SUPERVISOR [employer] BLOOD CULTURE STAT 02/12/2024 11:19 AM SUPERVISOR [employer] BLOOD CULTURE STAT 02/12/2024 11:19 AM SUPER[employer]OR [employer] POCT GLUCOSE DEVICE Routine 02/12/2024 1 1:07 AM SUPERVISOR [employer] from Last 3 Months Results * (ABNORMAL) Respiratory pathogen panel Nasopharyngeal (02/29/2024 12:54 PM SUPERVISOR [employer]) Pathologist [facility] [place] Influenza A RNA Not Detected Not Detected Influenza B RNA Not Detected Not Detected [facility] RSV RNA Not Detected Not Detected [facility] COVID-19 RNA Detected(A) Not Detected [facility] Coronavirus 229E RNA Not Detected Not Detected [facility] Coronavirus HKU1 RNA Not Detected Not Detected [facility] Coronavirus NL63 RNA Not Detected Not Detected [facility] Coronavirus OC43 RNA Not Detected Not Detected [facility] Adenovirus DNA Not Detected Not Detected [facility] Metapneumovirus RNA Not Detected Not Detected [facility] Rhinovirus/Enterov irus RNA Not Detected Not Detected [facility] Parainfluenza 1 RNA Not Detected Not Detected [facility] Parainfluenza 2 RNA Not Detected Not Detected [facility] Parainfluenza 3 RNA Not Detected Not Detected [facility] Parainfluenza 4 RNA Not Detected Not Detected [facility] B. pertussis DNA Not Detected Not Detected [facility] B. parapertussis DNA Not Detected Not Detected [facility] C. pneumoniae DNA Not Detected Not Detected [facility] M. pneumoniae DNA Not Detected Not Detected [facility] Nasopharyngeal 02/29/2024 12 :54 PM SUPERVISOR [employer] 02/29/2024 1:11 PM SUPERVISOR [employer] Narrative [facility] - 02/29/2024 2:17 PM SUPERVISOR [employer] Is the Patient experiencing symptoms consistent with COVID?->Yes Surveillance testing for transplant patient?->No ??Interpretive Data The [employer] FilmArray Respiratory Panel (RP2.1) assay is a multiplexed real-time PCR based nucleic acid test capable of simultaneous qualitative detection and identification of multiple respiratory viral and bacterial nucleic acids, including SARS Coronavirus 2 (the causative agent of COVID-19). The following bacteria, viruses and virus subtypes can be identified using the FilmArray RP2.1 assay: Bordetella pertussis, Bordetella parapertussis, Chlamydia pneumoniae, Mycoplasma pneumoniae, Adenovirus, SARS Coronavirus 2, seasonal coronaviruses (Coronavirus HKU1, Coronavirus NL63, Coronavirus 229E, and Coronavirus OC43), Influenza A, Influenza A subtype H1, Influenza A subtype H3, Influenza A subtype 2009 H1, Influenza B, Metapneumovirus, Parainfluenza 1, Parainfluenza 2, Parainfluenza 3, Parainfluenza 4, RSV, Rhinovirus/Enterovirus. Due to the genetic similarity between human Rhinovirus and Enterovirus, the FilmArray RP2.1 assay cannot reliably differentiate them. Coronavirus OC43 may cross-react with some isolates of Coronavirus HKU1. ??A dual positive result may be due to cross-reactivity or may indicate a co-infection. The detection and identification of specific viral and bacterial nucleic acids from individuals exhibiting signs and symptoms of a respiratory infection aids in the diagnosis of respiratory infection if used in conjunction with other clinical and epidemiological information. ??The results of this test should not be used as the sole basis for diagnosis, treatment, or other management decisions. ??Negative results in the setting of a respiratory illness may be due to infection with pathogens that are not detected by this test. ??Positive results do not rule out infection/co-infection with other organisms. ??The agent(s) detected by the FilmArray RP2.1 may not be the definite cause of disease. ??Additional testing (lab, imaging, etc.) may be necessary when evaluating a patient with possible respiratory tract infection. The FilmArray RP2.1 assay has FDA clearance for testing of GLUE MOUNTER OPERATOR swabs. ??The performance of additional specimen types has been assessed by the performing laboratory. ??The performance characteristics of this assay have been determined by [facility] Molecular Infectious Disease [facility]. Current interpretive data was last revised on 21. us Eulalia Leonardo MD LAB MICROBIOLOGY - GENERAL ORDERABLES Final Result [facility] Department [place] [address] * CT Head WO Contrast (02/29/2024 11:43 AM SUPERVISOR [employer]) Anatomical Region Laterality Modality Head and Neck N/A Computed Tomogra phy 02/29/2024 12:0 0 PM SU[employer] Impressions 02/29/2024 12:21 PM [employer] No acute intracranial process. Dictated by: Fred Mcgowan M.D. The radiology attending physician has personally reviewed this study, and had reviewed and/or edited this written report and agrees with it. Electronically signed by: Nasir Murillo M.D. Narrative 02/29/2024 12:21 PM SU[employer] EXAMINATION: CT head without contrast HISTORY: 63-year-old male with Alzheimer's dementia and altered mental status TECHNIQUE: CT of the head was performed with images acquired from skull base to vertex without intravenous contrast. COMPARISON: CT 02/12/2024 FINDINGS: There is no acute intracranial hemorrhage. There is moderate parenchymal volume loss and ex vacuo dilatation of the ventricles, unchanged from the prior study. No mass effect or midline shift is present. The bhatti-white matter differentiation is normal. The visualized portions of the orbits are normal. The visualized portions of the mastoids are normal. The visualized portions of the paranasal sinuses are normal. No fractures are identified. Procedure Note Nasir Murillo MD - 02/29/2024 EXAMINATION: CT head without contrast HISTORY: 63-year-old male with Alzheimer's dementia and altered mental status TECHNIQUE: CT of the head was performed with images acquired from skull base to vertex without intravenous contrast. COMPARISON: CT 02/12/2024 FINDINGS: There is no acute intracranial hemorrhage. There is moderate parenchymal volume loss and ex vacuo dilatation of the ventricles, unchanged from the prior study. No mass effect or midline shift is present. The bhatti-white matter differentiation is normal. The visualized portions of the orbits are normal. The visualized portions of the mastoids are normal. The visualized portions of the paranasal sinuses are normal. No fractures are identified. IMPRESSION: No acute intracranial process. Dictated by: Fred Mcgowan M.D. The radiology attending physician has personally reviewed this study, and had reviewed and/or edited this written report and agrees with it. Electronically signed by: Nasir Murillo M.D. Eulalia Leonardo MD IM CT PROCEDURES Final Result * eGFR (02/29/2024 11:18 AM SUPERVISOR [employer]) eGFR 82 >=60 mL/min/1. 73 m2 Comment: Interpretive Data Reference Interval Normal ?>/= 90 mL/min/1.73m2 Mildly decreased* ? 60 - 89 mL/min/1.73m2 Mildly to moderately decreased ?45 - 59 mL/min/1.73m2 Moderately to severely decreased ??30 - 44 mL/min/1.73m2 Severely decreased ?15 - 29 mL/min/1.73m2 Kidney Failure ?< 15 ??mL/min/1.73m2 *Relative to young adult level Estimated glomerular filtration rate is determined by the 2020 CKD-EPI equation recommended by the National Kidney Foundation (A Unifying Approach to GFR Estimation: Recommendations of the NKF-ASK Task Force on Reassessing the Inclusion of Race in Diagnosing Kidney Disease, JULIASOdalis 2020). The CKD-EPI equation should not be used for patients with unstable renal function and has not been validated in children and those over 70. Current interpretive data was last reviewed 2020. Blood 02/29/2024 11:1 8 AM SUPER[employer] 02/29/2024 11:40 AM SUPER[employer]OR [employer] us Eulalia Leonardo MD LAB BLOOD ORDERAB LES Final Result [facility] Department [place] [address] * Differential, auto (02/29/2024 11:18 AM SUPERVISOR [employer]) Neutrophil abs 5.0 1.5 - 6.5 K/cumm Imm gran abs 0.0 0.0 - 0.1 K/cumm [facility] Lymphocyte abs 1.9 0.8 - 3.3 K/cumm [facility] Monocyte abs 0.8 0.2 - 0.8 K/cumm [facility] Eosinophil abs 0.2 0.0 - 0.5 K/cumm [facility] Basophil abs 0.0 0.0 - 0.1 K[facility] Neutrophil pct 62.9 % [facility] Comment: Interpretive Data Percent cell count reference ranges are not reported, since discordance with absolute values may lead to misinterpretation of CBC data. Current Interpretive Data was last revised on 2017. Imm gran pct 0.4 % [facility] Comment: Interpretive Data Percent cell count reference ranges are not reported, since discordance with absolute values may lead to misinterpretation of CBC data. Current Interpretive Data was last revised on 2017. Lymphocyte pct 24.3 % [facility] Comment: Interpretive Data Percent cell count reference ranges are not reported, since discordance with absolute values may lead to misinterpretation of CBC data. Current Interpretive Data was last revised on 2017. Monocyte pct 9.9 % [facility] Comment: Interpretive Data Percent cell count reference ranges are not reported, since discordance with absolute values may lead to misinterpretation of CBC data. Current Interpretive Data was last revised on 2017. Eosinophil pct 2.2 % [facility] Comment: Interpretive Data Percent cell count reference ranges are not reported, since discordance with absolute values may lead to misinterpretation of CBC data. Current Interpretive Data was last revised on 2017. Basophil pct 0.3 % [facility] Comment: Interpretive Data Percent cell count reference ranges are not reported, since discordance with absolute values may lead to misinterpretation of CBC data. Current Interpretive Data was last revised on 2017. Blood 02/29/2024 11:1 8 AM SUPERVISOR [employer] 02/29/2024 11:40 AM SUPER[employer]OR [employer] us Eulalia Leonardo MD LAB BLOOD ORDERAB LES Final Result [facility] Department [place] [address] * CBC with auto differential (02/29/2024 11:18 AM SUPERVISOR [employer]) WBC 7.9 3.8 - 9.9 K/cumm Hgb 14.1 13.0 - 17.5 g/dL [facility] Hct 41.7 38.9 - 50.3 % [facility] Plt 230 150 - 400 K/cumm [facility] MPV 9.7 9.1 - 12.3 fL [facility] RBC 4.73 4.30 - 5.80 M/cumm [facility] MCV 88.2 81.3 - 96.4 fL [facility] MCH 29.8 27.1 - 33.3 pg [facility] MCHC 33.8 32.3 - 35.7 g/dL [facility] RDW CV 12.4 11.1 - 14.9 % [facility] RDW SD 40.6 35.7 - 48.1 fL [facility] NRBC abs 0.00 0.00 - 0.01 K/cumm [facility] Blood 02/29/2024 11:1 8 AM SU[employer] 02/29/2024 11:40 AM [employer] Eulalai Leonardo MD LAB BLOOD ORDERAB LES Final Result Performing Organization Address [facility] de Phone Number [facility] [place] [address] * (ABNORMAL) Blood gas, venous (02/29/2024 11:18 AM [employer]) pH, Venous 7.45(H) 7.32 - 7.43 PCO2, Venous 35(L) 40 - 50 mmHg [facility] PO2, Venous 64 mmHg [facility] Comment: Interpretive Data No Reference Range Established Current Interpretive Data was last revised on 2017. HCO3 Venous, Calculated 25 20 - 30 mmol/L [facility] BE, venous 1 mmol/L [facility] Comment: Interpretive Data No Reference Range Established Current Interpretive Data was last revised on 2017. Blood 02/29/2024 11:1 8 AM [employer] 02/29/2024 11:37 AM [employer] Eulalia Leonardo MD LAB BLOOD ORDERAB LES Final Result Performing Organization Address [facility] de Phone Number [facility] [place] [address] * (ABNORMAL) Comprehensive metabolic panel (02/29/2024 11:18 AM [employer]) Sodium 140 135 - 145 mmol/L Potassium, pl 4.7 3.3 - 4.9 mmol/L [facility] Chloride 104 97 - 110 mmol/L [facility] CO2 25 22 - 32 mmol/L [facility] Anion gap 11 2 - 15 mmol/L [facility] BUN 17 6 - 25 mg/dL [facility] Creatinine 1.02 0.80 - 1.30 mg/dL [facility] Glucose 98 70 - 199 mg/dL [facility] Comment: Interpretive Data Fasting glucose >/= 126 mg/dl is diagnostic for diabetes. ?? Fasting is defined as no caloric intake for at least 8 hours. Fasting glucose between 100 mg/dl to 125 mg/dl is diagnostic of prediabetes. In a patient with classic symptoms of hyperglycemia or hyperglycemic crisis, a random glucose >/= 200 mg/dl is diagnostic for diabetes. In the absence of unequivocal hyperglycemia, results should be confirmed by repeat testing. The classification and Diagnosis of Diabetes Diabetes Care 2021; 46: S19-S40. Current interpretive data was last revised 2022. Calcium 9.5 8.5 - 10.3 mg/dL [facility] Bilirubin, total 0.8 0.1 - 1.2 mg/dL [facility] Protein, pl 7.2 6.5 - 8.5 g/dL [facility] Albumin 4.1 3.5 - 5.0 g/dL [facility] Alk phos 135(H) 40 - 130 Units/L [facility] ALT 68(H) 7 - 55 Units/L [facility] AST 37 10 - 50 Units/L [facility] Blood 02/29/2024 11:1 8 AM [employer] 02/29/2024 11:40 AM [employer] Eulalia Leonardo MD LAB BLOOD ORDERAB LES Final Result [facility] Department [place] [address] * Infection Prevention Eden auris PCR, surveillance Axilla/Groin (02/24/2024 9:54 PM [employer]) Eden auris DNA Not Detected Not Detected [facility] Comment: Interpretive Data Testing performed by [facility] Molecular Infectious Disease Laboratory using the DiaFood[employer] Liaison MDX Eden auris assay. ??This assay detects DNA from Eden auris using Real-Time PCR. ??This assay is laboratory developed and is not cleared by the [place] Food and Drug Administration. ??The performance characteristics have been verified by the [facility]. Interpretive data was last reviewed on 06/17/2023 Axilla/Groin 02/24/2024 9:54 PM [employer] 02/25/2024 1:30 AM [employer] David Thakur MD LAB MICROBIOLOGY - GENERAL ORDER MICHAEL Final Result Performing Organization Address [facility] [place] [address] [facility] * Infection Prevention Eden auris PCR, surveillance Axilla/Groin (02/18/2024 8:39 PM [employer]) Eden auris DNA Not Detected Not Detected [facility] Comment: Interpretive Data Testing performed by [facility] Infectious Disease Laboratory using the Cohere[employer] Medical[employer] MDX Eden auris assay. ??This assay detects DNA from Eden auris using Real-Time PCR. ??This assay is laboratory developed and is not cleared by the [facility] Food and Drug Administration. ??The performance characteristics have been verified by the [facility] Infectious Disease Laboratory. Interpretive data was last reviewed on 06/17/2023 Axilla/Groin 02/18/2024 8:39 PM [employer] 02/18/2024 8:53 PM [employer] David Thakur MD LAB MICROBIOLOGY - GENERAL ORDER MICHAEL Final Result Performing Organization Address [facility] de Phone Number [facility] [place] [place] [address] [facility] * (ABNORMAL) Urinalysis reflex to microscopic and culture Urine (02/17/2024 6:24 PM [employer]) Color, ur Yellow Yellow Clarity, ur Turbid(A) Clear [facility] Specific gravity, ur 1.033(H) 1.003 - 1.030 [facility] pH, urine 6.0 [facility] Comment: Interpretive Data ? Urine pH is affected by diet, medications, systemic acid-base disturbances, and renal tubular function. ??pH may affect urinary stone formation. ??For example, urine pH below 6.0 may help reduce the tendency for calcium phosphate stones and pH greater than 6.0 may reduce the tendency for uric acid stone formation. Source: [facility] Command Information Current Interpretive Data was last revised on 2017 Protein, ur ql Trace Negative [facility] Glucose, ur ql Negative Negative [facility] Ketones, ur Negative Negative [facility] Bilirubin, ur Negative Negative [facility] Blood, ur Negative Negative [facility] Urobilinogen, ur <2.0 <2.0 mg/dL [facility] Nitrite, ur Negative Negative [facility] Leukocyte esterase, ur Negative Negative [facility] UA reflex comment Reflex conditions for microscopic UA and culture not met. [facility] Urine 02/17/2024 6:24 PM [employer] 02/17/2024 6:30 PM [employer] us Berry Lombardo MD LAB MICROBIOLOGY - GEN ERAL ORDERABLES Final Result [facility] Department [place] [address] * LOCATION DIRECTOR Evaluation and Treatment (02/15/2024 10:30 AM [employer]) Narrative Enedina Larsen, LOCATION DIRECTOR - 02/15/2024 10:30 AM [employer] Enedina Larsen, LOCATION DIRECTOR ? 02/15/2024 ??2:41 PM Speech-Language Pathology: Clinical Bedside Swallow [facility]/PM 63 y.o. male with a history of early onset AD, HLD, HTN, ??who presents with subacute on chronic on chronic progression of dementia symptoms w/ 2 week onset of rigidity and cervical dystonia iso risperdal use. Dementia symptoms starting in 2018, follows at memory care clinic, family noticed decline September 2023 No prior LOCATION DIRECTOR notes Respiratory/Intubation Status: Imagin02/11 CXR- Patchy bibasilar airspace opacities, right greater than left, which may represent aspiration and/or pneumonia. ??No pneumothorax or visualized pleural effusion. Precautions: fall Current Diet Order:dysphagia 2, thin Baseline Diet: presumed regular, unable to confirm General Information Brandon Wasserman 02/15/24 General Observations: Seen sitting upright in bed. Unable to make/maintain eye contact, shaking/jerking movements of all extremities randomly. Intermittent pleasant resposne to questions and abrupt inappropriate outbursts. Unable to bring hand to face to scratch/wipe nose. If pain >4, was RN notified? No Patient Stated Goal/Comments: unable to state Clinical Impression & Professional Recommendations Diet Solids Recommendation: Regular, choose softer items as needed Diet Liquids Recommendations: Thin/regular Recommended Form of Medications: As tolerated Compensatory Strategies/Modifications: Slow rate, Small bites, Single sips Postural Recommendations: Upright Assistance with feeding/swallowing: One to one assist with meals, oral care frequently as pt allows, ensure oral clearance before reclining patient Specialty Instructions: none Dysphagia Diagnosis: Within Functional Limits Overall Clinical Impression/Additional Information: Given trials of thin liquid via cup edge as well as puree and hard solid food. Pt unable to drink from a straw during session, bit down on it. Initially kept hard solid trials at lips and did not make attempt to transit or spit out, therefore manually removed. Tried again later in session with functional AP transit and masticaiton observed. No overt s/s aspiration however trials minimal ( x2 cup sips, x2 puree trials, x1 hard solid). Not cognitively appropriate for instrumental assessment. Assessment Details & Results Consistencies Administered: Thin liquids, Purees, Solids MASA: Castrejon Assessment of Swallowing Ability (MASA) Alertness: Alert Cooperation: Fluctuating cooperation Auditory Comprehension: Occasional motor resonse if cued Respiration: Sputum upper airway/other condition Respiratory Rate (for swallow): Able to control breath rate for swallow Aphasia: No abnormality detected Apraxia: No abnormality detected Dysarthria: No abnormality detected Saliva: No abnormality detected Lip Seal: Mild impairment/occasional leakage Tongue Movement: Mild impairment in range Tongue Strength: Minimal weakness Tongue Coordination: No movement/unable to assess (not following commands) Gag: No gag (not assessed) Palate: No spread or elevation (unable to assess) Cough Reflex: No deficit noted Voluntary Cough: No attempt/unable (unable to assess) Voice: No abnormality detected Trach: No trach Oral Preparation: No deficits noted Bolus Clearance: Fully cleared Oral Transit: No movement (x1 with solid) Pharyngeal Phase: Immediate laryngeal elevation Pharyngeal Response: No deficits noted MASA Score: 149 Dysphagia: Moderate dysphagia (139-167) Aspiration Risk: Mild aspiration risk (149-169) Plan LOCATION DIRECTOR Frequency of Services during current admission: One-time visit (Discharge from this service) LOCATION DIRECTOR Recommendation (Add'l Services): No further LOCATION DIRECTOR indicated Further Assessment/Follow up Indicated: none for swallowing Next Visit Plan:No further ST warranted Additional Referrals: none at this time Please reference care plan for treatment goals, if indicated. Discharge Summary Statement If this is the last swallow therapy visit, this serves as the discharge summary. Yoko Calvin MD LOCATION DIRECTOR ORDERABLES Final Result * Infection Prevention Eden auris PCR, surveillance Axilla/Groin (02/14/2024 9:36 PM [employer]) Eden auris DNA Not Detected Not Detected [facility] Comment: Interpretive Data Testing performed by [facility] Infectious Disease Laboratory using the Brainlike MDX Eden auris assay. ??This assay detects DNA from Eden auris using Real-Time PCR. ??This assay is laboratory developed and is not cleared by the [place] Food and Drug Administration. ??The performance characteristics have been verified by the [facility] Infectious Disease Laboratory. Interpretive data was last reviewed on 06/17/2023 Axilla/Groin 02/14/2024 9:36 PM [employer] 02/14/2024 10:12 PM [employer] David Thakur MD LAB MICROBIOLOGY - GENERAL ORDER MICHAEL Final Result [facility] Department [place] [address] [facility] * eGFR (02/14/2024 9:36 PM [employer]) eGFR 76 >=60 mL/min/1. 73 m2 Comment: Interpretive Data Reference Interval Normal ?>/= 90 mL/min/1.73m2 Mildly decreased* ? 60 - 89 mL/min/1.73m2 Mildly to moderately decreased ?45 - 59 mL/min/1.73m2 Moderately to severely decreased ??30 - 44 mL/min/1.73m2 Severely decreased ?15 - 29 mL/min/1.73m2 Kidney Failure ?< 15 ??mL/min/1.73m2 *Relative to young adult level Estimated glomerular filtration rate is determined by the 2020 CKD-EPI equation recommended by the National Kidney Foundation (A Unifying Approach to GFR Estimation: Recommendations of the NKF-ASK Task Force on Reassessing the Inclusion of Race in Diagnosing Kidney Disease, JASN 2020). The CKD-EPI equation should not be used for patients with unstable renal function and has not been validated in children and those over 70. Current interpretive data was last reviewed 2020. Blood 02/14/2024 9:36 PM [employer] 02/14/2024 10:08 PM [employer] River Almanza MD LAB BLOOD ORDERABLES Fin al Result [facility] Department [place] [address] * Differential, auto (02/14/2024 9:36 PM [employer]) Neutrophil abs 2.9 1.5 - 6.5 K/cumm Imm gran abs 0.0 0.0 - 0.1 K/cumm [facility] Lymphocyte abs 1.4 0.8 - 3.3 K/cumm [facility] Monocyte abs 0.5 0.2 - 0.8 K/cumm [facility] Eosinophil abs 0.2 0.0 - 0.5 K/cumm [facility] Basophil abs 0.0 0.0 - 0.1 K/cumm [facility] Neutrophil pct 57.2 % [facility] Comment: Interpretive Data Percent cell count reference ranges are not reported, since discordance with absolute values may lead to misinterpretation of CBC data. Current Interpretive Data was last revised on 2017. Imm gran pct 0.4 % [facility] Comment: Interpretive Data Percent cell count reference ranges are not reported, since discordance with absolute values may lead to misinterpretation of CBC data. Current Interpretive Data was last revised on 2017. Lymphocyte pct 28.3 % [facility] Comment: Interpretive Data Percent cell count reference ranges are not reported, since discordance with absolute values may lead to misinterpretation of CBC data. Current Interpretive Data was last revised on 2017. Monocyte pct 10.2 % [facility] Comment: Interpretive Data Percent cell count reference ranges are not reported, since discordance with absolute values may lead to misinterpretation of CBC data. Current Interpretive Data was last revised on 2017. Eosinophil pct 3.5 % [facility] Comment: Interpretive Data Percent cell count reference ranges are not reported, since discordance with absolute values may lead to misinterpretation of CBC data. Current Interpretive Data was last revised on 2017. Basophil pct 0.4 % [facility] Comment: Interpretive Data Percent cell count reference ranges are not reported, since discordance with absolute values may lead to misinterpretation of CBC data. Current Interpretive Data was last revised on 2017. Blood 02/14/2024 9:36 PM [employer] 02/14/2024 10:23 PM [employer] River Almanza MD LAB BLOOD ORDERABLES Fin al Result [facility] Department [place] [address] * (ABNORMAL) Iron profile w/ IBC (02/14/2024 9:36 PM [employer]) Iron 40(L) 50 - 150 mcg/dL TIBC 138(L) 250 - 400 mcg/dL [facility] Transferrin saturation 29 20 - 50 % [facility] Blood 02/14/2024 9:36 PM [employer] 02/14/2024 10:08 PM [employer] us Berry Lombardo MD LAB BLOOD ORDERABLES F inal Result [facility] [place] [address] * Urinalysis reflex to microscopic (02/14/2024 9:36 PM [employer]) Pathologist [facility] [place] Color, ur Straw Yellow Clarity, ur Clear Clear [facility] Specific gravity, ur 1.020 1.003 - 1.030 [facility] pH, urine 6.5 [facility] Comment: Interpretive Data ? Urine pH is affected by diet, medications, systemic acid-base disturbances, and renal tubular function. ??pH may affect urinary stone formation. ??For example, urine pH below 6.0 may help reduce the tendency for calcium phosphate stones and pH greater than 6.0 may reduce the tendency for uric acid stone formation. Source: [facility] Command Information Current Interpretive Data was last revised on 2017 Protein, ur ql Negative Negative [facility] Glucose, ur ql Negative Negative [facility] Ketones, ur Negative Negative [facility] Bilirubin, ur Negative Negative [facility] Blood, ur Negative Negative [facility] Urobilinogen, ur <2.0 <2.0 mg/dL [facility] Nitrite, ur Negative Negative [facility] Leukocyte esterase, ur Negative Negative [facility] UA reflex comment Reflex conditions for microscopic UA not met. [facility] Urine 02/14/2024 9:36 PM [employer] 02/14/2024 10:01 PM [employer] us Yoko Calvin MD LAB URINE ORDERABLES Final Resul t [facility] Department [place] [address] * (ABNORMAL) CBC with auto differential (02/14/2024 9:36 PM [employer]) [facility] WBC 5.1 3.8 - 9.9 K/cumm Hgb 12.7(L) 13.0 - 17.5 g/dL [facility] Hct 37.1(L) 38.9 - 50.3 % [facility] Plt 188 150 - 400 K/cumm [facility] MPV 10.0 9.1 - 12.3 fL [facility] RBC 4.27(L) 4.30 - 5.80 M/cumm [facility] MCV 86.9 81.3 - 96.4 fL [facility] MCH 29.7 27.1 - 33.3 pg [facility] MCHC 34.2 32.3 - 35.7 g/dL [facility] RDW CV 12.3 11.1 - 14.9 % [facility] RDW SD 39.3 35.7 - 48.1 fL [facility] NRBC abs 0.00 0.00 - 0.01 K/cumm [facility] Blood 02/14/2024 9:36 PM [employer] 02/14/2024 10:23 PM [employer] River Almanza MD LAB BLOOD ORDERABLES Fin al Result Performing Organization Address [facility] Co de Phone Number [facility] [place] [address] * Ferritin (02/14/2024 9:36 PM SUPER[employer]OR [employer]) [facility] Ferritin 346 30 - 400 ng/mL Blood 02/14/2024 9:36 PM [employer] 02/14/2024 10:08 PM [employer] Berry Lombardo MD LAB BLOOD ORDERABLES F inal Result Performing Organization Address [facility] de Phone Number [facility] Department [place] [address] * Basic metabolic panel (02/14/2024 9:36 PM SUPER[employer]OR [employer]) [facility] Sodium 140 135 - 145 mmol/L Potassium, pl 4.0 3.3 - 4.9 mmol/L [facility] Chloride 102 97 - 110 mmol/L [facility] CO2 31 22 - 32 mmol/L [facility] Anion gap 7 2 - 15 mmol/L [facility] BUN 18 6 - 25 mg/dL [facility] Creatinine 1.09 0.80 - 1.30 mg/dL [facility] Glucose 100 70 - 199 mg/dL [facility] Comment: Interpretive Data Fasting glucose >/= 126 mg/dl is diagnostic for diabetes. ?? Fasting is defined as no caloric intake for at least 8 hours. Fasting glucose between 100 mg/dl to 125 mg/dl is diagnostic of prediabetes. In a patient with classic symptoms of hyperglycemia or hyperglycemic crisis, a random glucose >/= 200 mg/dl is diagnostic for diabetes. In the absence of unequivocal hyperglycemia, results should be confirmed by repeat testing. The classification and Diagnosis of Diabetes Diabetes Care 202; 46: S19-S40. Current interpretive data was last revised 2022. Calcium 9.2 8.5 - 10.3 mg/dL [facility] Blood 02/14/2024 9:36 PM [employer] 02/14/2024 10:08 PM [employer] us River Almanza MD LAB BLOOD ORDERABLES Fin al Result Performing Organization Address City/State/[facility] Co de Phone Number [facility] Department [place] [address] * eGFR (02/13/2024 11:45 PM SUPER[employer]) eGFR 73 >=60 mL/min/1. 73 m2 Comment: Interpretive Data Reference Interval Normal ?>/= 90 mL/min/1.73m2 Mildly decreased* ? 60 - 89 mL/min/1.73m2 Mildly to moderately decreased ?45 - 59 mL/min/1.73m2 Moderately to severely decreased ??30 - 44 mL/min/1.73m2 Severely decreased ?15 - 29 mL/min/1.73m2 Kidney Failure ?< 15 ??mL/min/1.73m2 *Relative to young adult level Estimated glomerular filtration rate is determined by the 2020 CKD-EPI equation recommended by the National Kidney Foundation (A Unifying Approach to GFR Estimation: Recommendations of the NKF-ASK Task Force on Reassessing the Inclusion of Race in Diagnosing Kidney Disease, JASN 2020). The CKD-EPI equation should not be used for patients with unstable renal function and has not been validated in children and those over 70. Current interpretive data was last reviewed 2020. Blood 02/13/2024 11:4 5 PM [employer] 02/14/2024 12:44 AM [employer] us River Almanza MD LAB BLOOD ORDERABLES Fin al Result [facility] Department [place] [address] * Differential, auto (02/13/2024 11:45 PM [employer]PER[employer]) Neutrophil abs 3.0 1.5 - 6.5 K/cumm Imm gran abs 0.0 0.0 - 0.1 K/cumm [facility] Lymphocyte abs 1.6 0.8 - 3.3 K/cumm [facility] Monocyte abs 0.5 0.2 - 0.8 K/cumm [facility] Eosinophil abs 0.2 0.0 - 0.5 K/cumm [facility] Basophil abs 0.0 0.0 - 0.1 K/cumm [facility] Neutrophil pct 56.3 % [facility] Comment: Interpretive Data Percent cell count reference ranges are not reported, since discordance with absolute values may lead to misinterpretation of CBC data. Current Interpretive Data was last revised on 2017. Imm gran pct 0.2 % [facility] Comment: Interpretive Data Percent cell count reference ranges are not reported, since discordance with absolute values may lead to misinterpretation of CBC data. Current Interpretive Data was last revised on 2017. Lymphocyte pct 30.3 % [facility] [facility] Comment: Interpretive Data Percent cell count reference ranges are not reported, since discordance with absolute values may lead to misinterpretation of CBC data. Current Interpretive Data was last revised on 2017. Monocyte pct 9.0 % [facility] Comment: Interpretive Data Percent cell count reference ranges are not reported, since discordance with absolute values may lead to misinterpretation of CBC data. Current Interpretive Data was last revised on 2017. Eosinophil pct 3.6 % [facility] Comment: Interpretive Data Percent cell count reference ranges are not reported, since discordance with absolute values may lead to misinterpretation of CBC data. Current Interpretive Data was last revised on 2017. Basophil pct 0.6 % [facility] Comment: Interpretive Data Percent cell count reference ranges are not reported, since discordance with absolute values may lead to misinterpretation of CBC data. Current Interpretive Data was last revised on 2017. Blood 02/13/2024 11:4 5 PM [employer] 02/14/2024 12:44 AM [employer] us River Almanza MD LAB BLOOD ORDERABLES Fin al Result [facility] Department [place] [address] * (ABNORMAL) CBC with auto differential (02/13/2024 11:45 PM [employer]) WBC 5.3 3.8 - 9.9 K/cumm Hgb 12.6(L) 13.0 - 17.5 g/dL [facility] Hct 36.9(L) 38.9 - 50.3 % [facility] Plt 184 150 - 400 K/cumm [facility] MPV 9.7 9.1 - 12.3 fL [facility] RBC 4.20(L) 4.30 - 5.80 M/cumm [facility] MCV 87.9 81.3 - 96.4 fL [facility] MCH 30.0 27.1 - 33.3 pg [facility] MCHC 34.1 32.3 - 35.7 g/dL [facility] RDW CV 12.3 11.1 - 14.9 % [facility] RDW SD 39.7 35.7 - 48.1 fL [facility] NRBC abs 0.00 0.00 - 0.01 K/cumm [facility] Blood 02/13/2024 11:4 5 PM [employer] 02/14/2024 12:44 AM [employer] River Almanza MD LAB BLOOD ORDERABLES Fin al Result Performing Organization Address [facility] Co de Phone Number [facility] Department [place] [address] * Basic metabolic panel (02/13/2024 11:45 PM [employer]) [facility] Sodium 141 135 - 145 mmol/L Potassium, pl 4.1 3.3 - 4.9 mmol/L [facility] Chloride 104 97 - 110 mmol/L [facility] CO2 29 22 - 32 mmol/L [facility] Anion gap 8 2 - 15 mmol/L [facility] BUN 19 6 - 25 mg/dL [facility] Creatinine 1.12 0.80 - 1.30 mg/dL [facility] Glucose 97 70 - 199 mg/dL [facility] Comment: Interpretive Data Fasting glucose >/= 126 mg/dl is diagnostic for diabetes. ?? Fasting is defined as no caloric intake for at least 8 hours. Fasting glucose between 100 mg/dl to 125 mg/dl is diagnostic of prediabetes. In a patient with classic symptoms of hyperglycemia or hyperglycemic crisis, a random glucose >/= 200 mg/dl is diagnostic for diabetes. In the absence of unequivocal hyperglycemia, results should be confirmed by repeat testing. The classification and Diagnosis of Diabetes Diabetes Care 2021; 46: S19-S40. Current interpretive data was last revised 2022. Calcium 9.3 8.5 - 10.3 mg/dL [facility] Blood 02/13/2024 11:4 5 PM [employer] 02/14/2024 12:44 AM [employer] River Almanza MD LAB BLOOD ORDERABLES Fin al Result Performing Organization Address [facility]/ZIP Co de Phone Number [facility] Department [place] [address] * eGFR (02/13/2024 12:06 AM [employer]) eGFR 88 >=60 mL/min/1. 73 m2 Comment: Interpretive Data Reference Interval Normal ?>/= 90 mL/min/1.73m2 Mildly decreased* ? 60 - 89 mL/min/1.73m2 Mildly to moderately decreased ?45 - 59 mL/min/1.73m2 Moderately to severely decreased ??30 - 44 mL/min/1.73m2 Severely decreased ?15 - 29 mL/min/1.73m2 Kidney Failure ?< 15 ??mL/min/1.73m2 *Relative to young adult level Estimated glomerular filtration rate is determined by the 2020 CKD-EPI equation recommended by the National Kid[employer] (A Unifying Approach to GFR Estimation: Recommendations of the NKF-ASK Task Force on Reassessing the Inclusion of Race in Diagnosing Kidney Disease, JASN 2020). The CKD-EPI equation should not be used for patients with unstable renal function and has not been validated in children and those over 70. Current interpretive data was last reviewed 2020. Blood 02/13/2024 12:0 6 AM [employer] 02/13/2024 12:25 AM [employer] us Yoko Calvin MD LAB BLOOD ORDERABLES Final Resul t [facility] Department of Laboratories [place], [place] [id number] * Differential, auto (02/13/2024 12:06 AM [employer]) Neutrophil abs 3.6 1.5 - 6.5 K/cumm Imm gran abs 0.0 0.0 - 0.1 K/cumm [facility] Lymphocyte abs 1.6 0.8 - 3.3 K/cumm [facility] Monocyte abs 0.6 0.2 - 0.8 K/cumm [facility] Eosinophil abs 0.2 0.0 - 0.5 K/cumm [facility] Basophil abs 0.0 0.0 - 0.1 K/cumm [facility] Neutrophil pct 59.9 % [facility] Comment: Interpretive Data Percent cell count reference ranges are not reported, since discordance with absolute values may lead to misinterpretation of CBC data. Current Interpretive Data was last revised on 2017. Imm gran pct 0.3 % [facility] Comment: Interpretive Data Percent cell count reference ranges are not reported, since discordance with absolute values may lead to misinterpretation of CBC data. Current Interpretive Data was last revised on 2017. Lymphocyte pct 26.0 % [facility] Comment: Interpretive Data Percent cell count reference ranges are not reported, since discordance with absolute values may lead to misinterpretation of CBC data. Current Interpretive Data was last revised on 2017. Monocyte pct 9.6 % [facility] Comment: Interpretive Data Percent cell count reference ranges are not reported, since discordance with absolute values may lead to misinterpretation of CBC data. Current Interpretive Data was last revised on 2017. Eosinophil pct 3.9 % [facility] Comment: Interpretive Data Percent cell count reference ranges are not reported, since discordance with absolute values may lead to misinterpretation of CBC data. Current Interpretive Data was last revised on 2017. Basophil pct 0.3 % [facility] Comment: Interpretive Data Percent cell count reference ranges are not reported, since discordance with absolute values may lead to misinterpretation of CBC data. Current Interpretive Data was last revised on 2017. Blood 02/13/2024 12:0 6 AM [employer] 02/13/2024 12:25 AM [employer] us Yoko Calvin MD LAB BLOOD ORDERABLES Final Resul t [facility] Department [place] [address] * (ABNORMAL) CBC with auto differential (02/13/2024 12:06 AM [employer]) [facility] WBC 6.0 3.8 - 9.9 K/cumm Hgb 12.5(L) 13.0 - 17.5 g/dL [facility] Hct 36.8(L) 38.9 - 50.3 % [facility] Plt 178 150 - 400 K/cumm [facility] MPV 9.5 9.1 - 12.3 fL [facility] RBC 4.27(L) 4.30 - 5.80 M/cumm [facility] MCV 86.2 81.3 - 96.4 fL [facility] MCH 29.3 27.1 - 33.3 pg [facility] MCHC 34.0 32.3 - 35.7 g/dL [facility] RDW CV 12.4 11.1 - 14.9 % [facility] RDW SD 39.2 35.7 - 48.1 fL [facility] NRBC abs 0.00 0.00 - 0.01 K/cumm [facility] Blood 02/13/2024 12:0 6 AM [employer] 02/13/2024 12:25 AM [employer] us Yoko Calvin MD LAB BLOOD ORDERABLES Final Resul t [facility] Department [place] [address] * Comprehensive metabolic panel (02/13/2024 12:06 AM [employer]) [facility] Sodium 142 135 - 145 mmol/L Potassium, pl 4.1 3.3 - 4.9 mmol/L [facility] Chloride 105 97 - 110 mmol/L [facility] CO2 28 22 - 32 mmol/L [facility] Anion gap 9 2 - 15 mmol/L [facility] BUN 17 6 - 25 mg/dL [facility] Creatinine 0.96 0.80 - 1.30 mg/dL [facility] Glucose 103 70 - 199 mg/dL [facility] Comment: Interpretive Data Fasting glucose >/= 126 mg/dl is diagnostic for diabetes. ?? Fasting is defined as no caloric intake for at least 8 hours. Fasting glucose between 100 mg/dl to 125 mg/dl is diagnostic of prediabetes. In a patient with classic symptoms of hyperglycemia or hyperglycemic crisis, a random glucose >/= 200 mg/dl is diagnostic for diabetes. In the absence of unequivocal hyperglycemia, results should be confirmed by repeat testing. The classification and Diagnosis of Diabetes Diabetes Care 2021; 46: S19-S40. Current interpretive data was last revised 2022. Calcium 9.4 8.5 - 10.3 mg/dL [facility] Bilirubin, total 0.8 0.1 - 1.2 mg/dL [facility] Protein, pl 6.5 6.5 - 8.5 g/dL [facility] Albumin 3.9 3.5 - 5.0 g/dL [facility] Alk phos 96 40 - 130 Units/L [facility] ALT 12 7 - 55 Units/L [facility] AST 23 10 - 50 Units/L [facility] Blood 02/13/2024 12:0 6 AM [employer] 02/13/2024 12:25 AM [employer] us Yoko Calvin MD LAB BLOOD ORDERABLES Final Resul t [facility] Department [place] [address] * XR Chest 1 Vw Portable (02/12/2024 1:50 PM [employer]) Anatomical Region Laterality Modality Body, Chest N/A Computed Radiogr aphy 02/12/2024 1:52 PM [employer] Impressions 02/12/2024 1:52 PM [employer] Single view of the chest without comparison. ??Patient is rotated towards the left Both costophrenic angles are excluded from the [id number]. ??Patchy bibasilar airspace opacities, right greater than left, which may represent aspiration and/or pneumonia. ??No pneumothorax or visualized pleural effusion. ??Cardiomediastinal contours are normal. Electronically signed by: Roland Knott M.D. Narrative 02/12/2024 1:52 PM [employer] EXAMINATION: XR CHEST 1 VIEW HISTORY: Altered mental status Procedure Note Roland Knott MD - 02/12/2024 EXAMINATION: XR CHEST 1 VIEW HISTORY: Altered mental status IMPRESSION: Single view of the chest without comparison. Patient is rotated towards the left Both costophrenic angles are excluded from the [id number]. Patchy bibasilar airspace opacities, right greater than left, which may represent aspiration and/or pneumonia. No pneumothorax or visualized pleural effusion. Cardiomediastinal contours are normal. Electronically signed by: Roland Knott M.D. us Colt Smith MD IMG XR PROCEDURES Final Resu lt * Troponin I high-sensitivity 2-hour (02/12/2024 1:11 PM [employer]) Trop I hs 10 <=35 ng/L Comment: Interpretive Data For further hscTnI resources including the diagnostic algorithm and an aid in interpretation, copy and paste this link: [email or web address] Current Interpretive Data last revised 2019. Trop I hs delta 1 ng/L [facility] Trop I hs interp Insignificant [facility] Blood 02/12/2024 1:11 PM [employer] 02/12/2024 1:16 PM [employer] Colt Smith MD LAB BLOOD ORDERABLES Final R esult [facility] Department [place] [address] * (ABNORMAL) Urinalysis reflex to microscopic and culture Urine (02/12/2024 1:11 PM [employer]) Color, ur Yellow Yellow Clarity, ur Cloudy(A) Clear [facility] Specific gravity, ur 1.023 1.003 - 1.030 [facility] pH, urine 7.0 [facility] Comment: Interpretive Data ? Urine pH is affected by diet, medications, systemic acid-base disturbances, and renal tubular function. ??pH may affect urinary stone formation. ??For example, urine pH below 6.0 may help reduce the tendency for calcium phosphate stones and pH greater than 6.0 may reduce the tendency for uric acid stone formation. Source: [facility] Current Interpretive Data was last revised on 2017 Protein, ur ql Trace Negative [facility] Glucose, ur ql Negative Negative [facility] Ketones, ur Negative Negative [facility] Bilirubin, ur Negative Negative [facility] Blood, ur Negative Negative [facility] Urobilinogen, ur <2.0 <2.0 mg/dL [facility] Nitrite, ur Negative Negative [facility] Leukocyte esterase, ur Negative Negative [facility] UA reflex comment Reflex conditions for microscopic UA and culture not met. [facility] Urine 02/12/2024 1:11 PM [employer] 02/12/2024 1:47 PM [employer] us Colt Smith MD LAB MICROBIOLOGY - GENERAL O RDERABLES Final Result Performing Organization Address City/State/[facility] Co de Phone Number [facility] Department [place] [address] * Respiratory pathogen panel Nasopharyngeal (02/12/2024 1:11 PM [employer]) Pathologist [facility] [place] Influenza A RNA Not Detected Not Detected Influenza B RNA Not Detected Not Detected [facility] RSV RNA Not Detected Not Detected [facility] COVID-19 RNA Not Detected Not Detected [facility] Coronavirus 229E RNA Not Detected Not Detected [facility] Coronavirus HKU1 RNA Not Detected Not Detected [facility] Coronavirus NL63 RNA Not Detected Not Detected [facility] Coronavirus OC43 RNA Not Detected Not Detected [facility] Adenovirus DNA Not Detected Not Detected [facility] Metapneumovirus RNA Not Detected Not Detected [facility] Rhinovirus/Enterov irus RNA Not Detected Not Detected [facility] Parainfluenza 1 RNA Not Detected Not Detected [facility] Parainfluenza 2 RNA Not Detected Not Detected [facility] Parainfluenza 3 RNA Not Detected Not Detected [facility] Parainfluenza 4 RNA Not Detected Not Detected [facility] B. pertussis DNA Not Detected Not Detected [facility] B. parapertussis DNA Not Detected Not Detected [facility] C. pneumoniae DNA Not Detected Not Detected [facility] M. pneumoniae DNA Not Detected Not Detected [facility] Nasopharyngeal 02/12/2024 1: 11 PM [employer] 02/12/2024 1:37 PM [employer] Narrative [facility] - 02/12/2024 2:34 PM [employer] Is the Patient experiencing symptoms consistent with COVID?->Unknown Surveillance testing for transplant patient?->No ??Interpretive Data [employer] FilmArray Respiratory Panel (RP2.1) assay is a multiplexed real-time PCR based nucleic acid test capable of simultaneous qualitative detection and identification of multiple respiratory viral and bacterial nucleic acids, including SARS Coronavirus 2 (the causative agent of COVID-19). The following bacteria, viruses and virus subtypes can be identified using the FilmArray RP2.1 assay: Bordetella pertussis, Bordetella parapertussis, Chlamydia pneumoniae, Mycoplasma pneumoniae, Adenovirus, SARS Coronavirus 2, seasonal coronaviruses (Coronavirus HKU1, Coronavirus NL63, Coronavirus 229E, and Coronavirus OC43), Influenza A, Influenza A subtype H1, Influenza A subtype H3, Influenza A subtype 2009 H1, Influenza B, Metapneumovirus, Parainfluenza 1, Parainfluenza 2, Parainfluenza 3, Parainfluenza 4, RSV, Rhinovirus/Enterovirus. Due to the genetic similarity between human Rhinovirus and Enterovirus, the FilmArray RP2.1 assay cannot reliably differentiate them. Coronavirus OC43 may cross-react with some isolates of Coronavirus HKU1. ??A dual positive result may be due to cross-reactivity or may indicate a co-infection. The detection and identification of specific viral and bacterial nucleic acids from individuals exhibiting signs and symptoms of a respiratory infection aids in the diagnosis of respiratory infection if used in conjunction with other clinical and epidemiological information. ??The results of this test should not be used as the sole basis for diagnosis, treatment, or other management decisions. ??Negative results in the setting of a respiratory illness may be due to infection with pathogens that are not detected by this test. ??Positive results do not rule out infection/co-infection with other organisms. ??The agent(s) detected by the FilmArray RP2.1 may not be the definite cause of disease. ??Additional testing (lab, imaging, etc.) may be necessary when evaluating a patient with possible respiratory tract infection. The FilmArray RP2.1 assay has FDA clearance for testing of GL[employer] swabs. ??The performance of additional specimen types has been assessed by the performing laboratory. ??The performance characteristics of this assay have been determined by [facility] Molecular Infectious Disease Laboratory. Current interpretive data was last revised on 21. us Colt Smith MD LAB MICROBIOLOGY - GENERAL O RDERABLES Final Result [facility] Department [place] [address] * Drugs of Abuse Screen, Urine without Confirmation (02/12/2024 1:11 PM [employer]) Amphetamine, ur Not Detected CutOff 500ng/mL Comment: Interpretive Data - Amphetamines: ??Samples containing greater than 500 ng/mL d-methamphetamine ??or other cross-reacting amphetamine compounds are reported as positive. ??Amphetamine immunoassays are subject to significant false positive rates due to cross-reactivity of non-amphetamine drugs. Confirmatory testing required for definitive results. Current Interpretive Data was last reviewed 2022. Barbiturates, ur Not Detected CutOff 200ng/mL [facility] Comment: Interpretive Data - Barbiturates: ??Samples containing greater than 200 ng/mL secobarbital or other cross-reacting barbiturate compounds are reported as positive. ??False positive and false negative results are possible. Confirmatory testing required for definitive results. Current Interpretive Data was last reviewed 2022. Benzodiazepines, ur Not Detected CutOff 100ng/mL [facility] Comment: Interpretive Data - Benzodiazepines: ??Samples containing greater than 100 ng/mL nordiazepam or other cross-reacting compounds are reported as positive. False positive and false negative results are possible. Confirmatory testing required for definitive results. Current Interpretive Data was last reviewed 2022. Cannabinoids, ur Not Detected CutOff 50 ng/mL [facility] Comment: Interpretive Data - Cannabinoids: ??Samples containing greater than 50 ng/mL delta-9 THC -COOH or other cross-reacting compounds are reported as positive. ??False positive and false negative results are possible. ??Confirmatory testing required for definitive results. Current Interpretive Data was last reviewed 2022. Cocaine, ur Not Detected CutOff 150ng/mL [facility] Comment: Interpretive Data - Cocaine: ??Samples containing greater than 150 ng/mL benzoylecgonine or other cross-reacting compounds are reported as positive. False positive and false negative results are possible. Confirmatory testing required for definitive results. Current Interpretive Data was last reviewed 2022. Fentanyl, Ur Not Detected CutOff 5 ng/mL [facility] Comment: Interpretive Data - Fentanyl: ?? Samples containing greater than 5 ng/mL norfentanyl, fentanyl, or other cross-reacting fentanyl compounds are reported as positive. False positive and false negative results are possible. Confirmatory testing required for definitive results. Current Interpretive Data was last reviewed 2023. Methadone, ur Not Detected CutOff 300ng/mL [facility] Comment: Interpretive Data - Methadone: ??Samples containing greater than 300 ng/mL d,l-methadone or other cross-reacting compounds are reported as positive. ??False positive and false negative results are possible. Confirmatory testing required for definitive results. Current Interpretive Data was last reviewed 2022. Opiates, ur Not Detected CutOff 300ng/mL [facility] Comment: Interpretive Data - Opiates: ??Samples containing greater than 300 ng/mL morphine or other cross-reacting compounds are reported as positive. ??False positive and false negative results are possible. Confirmatory testing required for definitive results. Current Interpretive Data was last reviewed 2022. Oxycodone, ur Not Detected CutOff 100ng/mL [facility] Comment: Interpretive Data - Oxycodone: ??Samples containing greater than 100 ng/mL oxycodone or other cross-reacting compounds are reported as ??positive. ??False positive and false negative results are possible. Confirmatory testing required for definitive results. Current Interpretive Data was last reviewed 2022. Phencyclidine, ur Not Detected CutOff 25 ng/mL [facility] Comment: Interpretive Data - Phencyclidine: ??Samples containing greater than 25 ng/mL phencyclidine or other cross-reacting compounds are reported as positive. ??False positive and false negative results are possible. Confirmatory testing required for definitive results. Current Interpretive Data was last reviewed 2022. Urine Creatinine 192 mg/dL [facility] Comment: Interpretive Data Urine Creatinine: < 10 mg/dL is extremely dilute = or > 10 but < 20 mg/dL is dilute = or > 20 mg/dL is normal Current Interpretive Data was last revised on 2017. Urine 02/12/2024 1:11 PM [employer] 02/12/2024 2:29 PM [employer] Narrative [facility] - 02/12/2024 2:30 PM [employer] Drug of Abuse screening is performed by immunoassay for medical purposes only. ??This is not to be used for Pain Management purposes. Colt Smith MD LAB URINE ORDERABLES Final R esult [facility] Department [place] [address] * ECG 12-LEAD (02/12/2024 1:02 PM [employer]) Narrative [facility] - 02/12/2024 1:02 PM [employer] Colt Smith MD ? 02/12/2024 ??1:04 PM ECG 12 lead Date/Time: 02/12/2024 1:02 PM Performed by: Colt Smith MD Authorized by: Colt Smith MD ?? Quality: ??Tracing quality: ??Limited by artifact Rate: ??ECG rate: ??82 Rhythm: ??Rhythm: sinus rhythm ?? Ectopy: ??Ectopy: none ?? Conduction: ??Conduction: abnormal ?Abnormal conduction: LAFB ?? Other findings: ??Other findings: LVH ?? Previous ECG: ??Previous ECG: ??Unavailable Recommended Follow-up: ??Recommended follow up: cardiac workup and further workup in the ED ?? Procedure Note Colt Smith MD - 02/12/2024 1:02 PM CST Procedure ECG 12 lead Date/Time: 02/12/2024 1:02 PM Performed by: Colt Smith MD Authorized by: Colt Smith MD Quality: Tracing quality: Limited by artifact Rate: ECG rate: 82 Rhythm: Rhythm: sinus rhythm Ectopy: Ectopy: none Conduction: Conduction: abnormal Abnormal conduction: LAFB Other findings: Other findings: LVH Previous ECG: Previous ECG: Unavailable Recommended Follow-up: Recommended follow up: cardiac workup and further workup in the ED Colt Smith MD Resident 02/12/24 1304 Colt Smith MD ECG ORDERABLES Final Result [facility] * CT Head WO Contrast (02/12/2024 11:50 AM [employer]) Anatomical Region Laterality Modality Head and Neck N/A Computed Tomogra phy 02/12/2024 12:0 2 PM [employer] Impressions 02/12/2024 12:02 PM [employer] No acute intracranial process. ??Likely age-related volume loss. Electronically signed by: Cande Gillespie M.D. Narrative 02/12/2024 12:02 PM [employer] EXAMINATION: CT head without contrast HISTORY: Alert and oriented x0 for 3 days TECHNIQUE: CT of the head was performed with images acquired from skull base to vertex without intravenous contrast. COMPARISON: MRI brain 09/10/2023 FINDINGS: There is no acute intracranial hemorrhage. There is diffuse cerebral atrophy with compensatory enlargement of the ventricular system. There is either focal atrophy or arachnoid cyst around the left sylvian fissure causing asymmetric enlargement of the left sylvian fissure compared to the right. No mass effect or midline shift is present. The bhatti-white matter differentiation is normal. The visualized portions of the orbits are normal. The visualized portions of the mastoids are normal. The visualized portions of the paranasal sinuses are normal. No fractures are identified. Procedure Note Cande Gillespie MD - 02/12/2024 EXAMINATION: CT head without contrast HISTORY: Alert and oriented x0 for 3 days TECHNIQUE: CT of the head was performed with images acquired from skull base to vertex without intravenous contrast. COMPARISON: MRI brain 09/10/2023 FINDINGS: There is no acute intracranial hemorrhage. There is diffuse cerebral atrophy with compensatory enlargement of the ventricular system. There is either focal atrophy or arachnoid cyst around the left sylvian fissure causing asymmetric enlargement of the left sylvian fissure compared to the right. No mass effect or midline shift is present. The bhatti-white matter differentiation is normal. The visualized portions of the orbits are normal. The visualized portions of the mastoids are normal. The visualized portions of the paranasal sinuses are normal. No fractures are identified. IMPRESSION: No acute intracranial process. Likely age-related volume loss. Electronically signed by: Cande Gillespie M.D. us Colt Smith MD IMG CT PROCEDURES Final Resu lt * Troponin I high-sensitivity series (baseline, 2hr, 4hr, 6hr) (02/12/2024 11:19 AM [employer]) Trop I hs 9 <=35 ng/L Comment: Interpretive Data For further [facility] resources including the diagnostic algorithm and an aid in interpretation, copy and paste this link: [email or web address]/[email or web address] Current Interpretive Data last revised 2019. Blood 02/12/2024 11:1 9 AM [employer] 02/12/2024 11:32 AM [employer] us Colt Smith MD LAB BLOOD ORDERABLES Final R esult Performing Organization Address [facility] Co de Phone Number [facility] Department [place] [address] * Sepsis Lactate w/ Reflex (02/12/2024 11:19 AM [employer]) Sepsis Lactate 1.6 0.7 - 2.0 mmol/L Blood 02/12/2024 11:1 9 AM [employer] 02/12/2024 11:30 AM [employer] Colt Smith MD LAB BLOOD ORDERABLES Final R esult Performing Organization Address [facility] Co de Phone Number [facility] Department [place] [address] * eGFR (02/12/2024 11:19 AM [employer]) Pathologist [facility] [place] eGFR 77 >=60 mL/min/1. 73 m2 Comment: Interpretive Data Reference Interval Normal ?>/= 90 mL/min/1.73m2 Mildly decreased* ? 60 - 89 mL/min/1.73m2 Mildly to moderately decreased ?45 - 59 mL/min/1.73m2 Moderately to severely decreased ??30 - 44 mL/min/1.73m2 Severely decreased ?15 - 29 mL/min/1.73m2 Kidney Failure ?< 15 ??mL/min/1.73m2 *Relative to young adult level Estimated glomerular filtration rate is determined by the 2020 CKD-EPI equation recommended by the National Kidney Foundation (A Unifying Approach to GFR Estimation: Recommendations of the NKF-ASK Task Force on Reassessing the Inclusion of Race in Diagnosing Kidney Disease, JASN 2020). The CKD-EPI equation should not be used for patients with unstable renal function and has not been validated in children and those over 70. Current interpretive data was last reviewed 2020. Blood 02/12/2024 11:1 9 AM [employer] 02/12/2024 11:32 AM [employer] us Colt Smith MD LAB BLOOD ORDERABLES Final R esult [facility] Department [place] [address] * Differential, auto (02/12/2024 11:19 AM [employer]) Pathologist [facility] [place] Neutrophil abs 3.5 1.5 - 6.5 K/cumm Imm gran abs 0.0 0.0 - 0.1 K/cumm [facility] Lymphocyte abs 1.1 0.8 - 3.3 K/cumm [facility] Monocyte abs 0.5 0.2 - 0.8 K/cumm [facility] Eosinophil abs 0.2 0.0 - 0.5 K/cumm [facility] Basophil abs 0.0 0.0 - 0.1 K/cumm [facility] Neutrophil pct 66.3 % [facility] Comment: Interpretive Data Percent cell count reference ranges are not reported, since discordance with absolute values may lead to misinterpretation of CBC data. Current Interpretive Data was last revised on 2017. Imm gran pct 0.2 % [facility] Comment: Interpretive Data Percent cell count reference ranges are not reported, since discordance with absolute values may lead to misinterpretation of CBC data. Current Interpretive Data was last revised on 2017. Lymphocyte pct 20.8 % [facility] Comment: Interpretive Data Percent cell count reference ranges are not reported, since discordance with absolute values may lead to misinterpretation of CBC data. Current Interpretive Data was last revised on 2017. Monocyte pct 9.2 % [facility] Comment: Interpretive Data Percent cell count reference ranges are not reported, since discordance with absolute values may lead to misinterpretation of CBC data. Current Interpretive Data was last revised on 2017. Eosinophil pct 2.9 % [facility] Comment: Interpretive Data Percent cell count reference ranges are not reported, since discordance with absolute values may lead to misinterpretation of CBC data. Current Interpretive Data was last revised on 2017. Basophil pct 0.6 % [facility] Comment: Interpretive Data Percent cell count reference ranges are not reported, since discordance with absolute values may lead to misinterpretation of CBC data. Current Interpretive Data was last revised on 2017. Blood 02/12/2024 11:1 9 AM [employer] 02/12/2024 11:32 AM [employer] us Colt Smith MD LAB BLOOD ORDERABLES Final R esult [facility] Department [place] [address] * Thyroid Function [place] (02/12/2024 11:19 AM [employer]) Pathologist [facility] [place] TSH 0.76 0.30 - 4.20 mcIUnit/mL Blood 02/12/2024 11:1 9 AM [employer] 02/12/2024 11:32 AM [employer] us Colt Smith MD LAB BLOOD ORDERABLES Final R esult [facility] [place] [address] * CBC with auto differential (02/12/2024 11:19 AM [employer]) [facility] WBC 5.2 3.8 - 9.9 K/cumm Hgb 13.2 13.0 - 17.5 g/dL [facility] Hct 39.2 38.9 - 50.3 % [facility] Plt 191 150 - 400 K/cumm [facility] MPV 9.4 9.1 - 12.3 fL [facility] RBC 4.44 4.30 - 5.80 M/cumm [facility] MCV 88.3 81.3 - 96.4 fL [facility] MCH 29.7 27.1 - 33.3 pg [facility] MCHC 33.7 32.3 - 35.7 g/dL [facility] RDW CV 12.5 11.1 - 14.9 % [facility] RDW SD 40.3 35.7 - 48.1 fL [facility] NRBC abs 0.00 0.00 - 0.01 K/cumm [facility] Blood 02/12/2024 11:1 9 AM [employer] 02/12/2024 11:32 AM [employer] us Colt Smith MD LAB BLOOD ORDERABLES Final R esult [facility] [place] [address] * Blood culture Blood Peripheral (02/12/2024 11:19 AM [employer]) Report Final Report: No growth Blood (Peripheral) 02/12/2024 11:19 AM [employer] 02/12/2024 11:45 AM [employer] Narrative [facility] - 02/16/2024 12:00 PM [employer] From a different site than #1. Draw Blood cultures before administration of Antibiotics Collection->Peripheral 1. ?Blood cultures are incubated for 4 days on a continuously monitored blood culture system. The first report of a negative culture is issued within 24 hours of receipt of the specimen in the laboratory. 2. ?Positive culture results are reported as soon as they are detected. 3. ?The most important factor for detection of microbes in the setting of bloodstream infection is the volume of blood submitted for culture. Failure to collect an optimal blood volume can result in false negative blood cultures. 4. ? For pediatric patients, the recommended blood volume to collect follows a weight based strategy. See the electronic test catalog for collection instructions. 5. ?For positive blood cultures, a rapid molecular test may be performed for organism identification using the mannie ePlex blood culture identification panel for gram positive (BCID-GP) and gram negative (BCID-GN) organisms. This nucleic acid amplification test detects microbial DNA in positive blood culture broth. This assay has been cleared by the [place] Food and Drug Administration and its performance characteristics have been verified by the [facility]biology Laboratory. For questions about this culture, contact the Microbiology Laboratory at [phone]. Interpretive data was last revised on 23. us Colt Smith MD LAB MICROBIOLOGY - GENERAL O RDERABLES Final Result [facility] Department [place] [address] * Blood culture Blood Peripheral (02/12/2024 11:19 AM [employer]) Report Final Report: No growth Blood (Peripheral) 02/12/2024 11:19 AM [employer] 02/12/2024 11:45 AM [employer] Narrative [facility] - 02/16/2024 12:00 PM [employer] Draw Blood cultures before administration of Antibiotics Collection->Peripheral 1. ?Blood cultures are incubated for 4 days on a continuously monitored blood culture system. The first report of a negative culture is issued within 24 hours of receipt of the specimen in the laboratory. 2. ?Positive culture results are reported as soon as they are detected. 3. ?The most important factor for detection of microbes in the setting of bloodstream infection is the volume of blood submitted for culture. Failure to collect an optimal blood volume can result in false negative blood cultures. 4. ? For pediatric patients, the recommended blood volume to collect follows a weight based strategy. See the electronic test catalog for collection instructions. 5. ?For positive blood cultures, a rapid molecular test may be performed for organism identification using the mannie ePlex blood culture identification panel for gram positive (BCID-GP) and gram negative (BCID-GN) organisms. This nucleic acid amplification test detects microbial DNA in positive blood culture broth. This assay has been cleared by the [place] Food and Drug Administration and its performance characteristics have been verified by the [facility]biology Laboratory. For questions about this culture, contact the Microbiology Laboratory at [phone]. Interpretive data was last revised on 23. us Colt Smith MD LAB MICROBIOLOGY - GENERAL O RDERABLES Final Result Performing Organization Address City/[facility]/ZIP Co de Phone Number [facility] Department [place] [address] * Phosphorus (02/12/2024 11:19 AM [employer]) [facility] Phosphorus, pl 3.8 2.3 - 4.5 mg/dL Blood 02/12/2024 11:1 9 AM [employer] 02/12/2024 11:32 AM [employer] Colt Smith MD LAB BLOOD ORDERABLES Final R esult Performing Organization Address City/[facility]/ZIP Co de Phone Number [facility] [place] [address] * Magnesium (02/12/2024 11:19 AM [employer]) Pathologist [facility] [place] Magnesium 2.1 1.4 - 2.5 mg/dL Blood 02/12/2024 11:1 9 AM [employer] 02/12/2024 11:32 AM [employer] us Colt Smith MD LAB BLOOD ORDERABLES Final R esult Performing Organization Address City/[facility] Co de Phone Number [facility] [place] [address] * Blood gas, venous (02/12/2024 11:19 AM [employer]) [facility] pH, Venous 7.38 7.32 - 7.43 PCO2, Venous 50 40 - 50 mmHg [facility] PO2, Venous 28 mmHg [facility] Comment: Interpretive Data No Reference Range Established Current Interpretive Data was last revised on 2017. HCO3 Venous, Calculated 30 20 - 30 mmol/L [facility] BE, venous 3 mmol/L [facility] Comment: Interpretive Data No Reference Range Established Current Interpretive Data was last revised on 2017. Blood 02/12/2024 11:1 9 AM [employer] 02/12/2024 11:29 AM [employer] us Colt Smith MD LAB BLOOD ORDERABLES Final R esult [facility] [place] [address] * Creatine kinase (CK), total (02/12/2024 11:19 AM [employer]) [facility] CK 224 40 - 300 Units/L Blood 02/12/2024 11:1 9 AM [employer] 02/12/2024 11:32 AM [employer] Jose James MD LAB BLOOD ORDERABLES Final R esult Performing Organization Address City/[facility] Co de Phone Number [facility] [place] [address] * Ammonia (02/12/2024 11:19 AM [employer]) Ammonia 23 <=50 mcmol/L Blood 02/12/2024 11:1 9 AM [employer] 02/12/2024 11:26 AM [employer] us Colt Smith MD LAB BLOOD ORDERABLES Final R esult Performing Organization Address [facility] de Phone Number [facility] [place] [address] * Ethanol (02/12/2024 11:19 AM [employer]) Pathologist [facility] [place] Ethanol <10 <=10 mg/dL Comment: Interpretive Data Legal limit of intoxication > or = 80 mg/dL Levels > or = 400 mg/dL are potentially TOXIC. Current interpretive data was last revised on 2018. Blood 02/12/2024 11:1 9 AM [employer] 02/12/2024 11:32 AM [employer] us Colt Smith MD LAB BLOOD ORDERABLES Final R esult Performing Organization Address [facility] Co de Phone Number [facility] [place] [address] * Hepatic function panel (02/12/2024 11:19 AM [employer]) Bilirubin, total 0.9 0.1 - 1.2 mg/dL Bilirubin, direct <0.2 0.1 - 0.3 mg/dL [facility] Protein, pl 7.1 6.5 - 8.5 g/dL [facility] Albumin 4.0 3.5 - 5.0 g/dL [facility] Alk phos 107 40 - 130 Units/L [facility] ALT 14 7 - 55 Units/L [facility] AST 22 10 - 50 Units/L [facility] Blood 02/12/2024 11:1 9 AM [employer] 02/12/2024 11:32 AM [employer] Colt Smith MD LAB BLOOD ORDERABLES Final R esult Performing Organization Address City/[facility] Co de Phone Number [facility] Department [place] [address] * Basic metabolic panel (02/12/2024 11:19 AM [employer]PER[employer]) [facility] Sodium 144 135 - 145 mmol/L Potassium, pl 4.5 3.3 - 4.9 mmol/L [facility] Chloride 107 97 - 110 mmol/L [facility] CO2 30 22 - 32 mmol/L [facility] Anion gap 7 2 - 15 mmol/L [facility] BUN 18 6 - 25 mg/dL [facility] Creatinine 1.08 0.80 - 1.30 mg/dL [facility] Glucose 100 70 - 199 mg/dL [facility] Comment: Interpretive Data Fasting glucose >/= 126 mg/dl is diagnostic for diabetes. ?? Fasting is defined as no caloric intake for at least 8 hours. Fasting glucose between 100 mg/dl to 125 mg/dl is diagnostic of prediabetes. In a patient with classic symptoms of hyperglycemia or hyperglycemic crisis, a random glucose >/= 200 mg/dl is diagnostic for diabetes. In the absence of unequivocal hyperglycemia, results should be confirmed by repeat testing. The classification and Diagnosis of Diabetes Diabetes Care 2021; 46: S19-S40. Current interpretive data was last revised 2022. Calcium 9.5 8.5 - 10.3 mg/dL [facility] Blood 02/12/2024 11:1 9 AM [employer] 02/12/2024 11:32 AM [employer] Colt Smith MD LAB BLOOD ORDERABLES Final R esult Performing Organization Address City/[facility]/ZIP Co de Phone Number [facility] Department [place] [address] * POCT glucose (02/12/2024 11:07 AM [employer]) Glucose, POC 106 70 - 199 mg/dL Blood 02/12/2024 11:0 7 AM [employer] 02/12/2024 11:07 AM [employer] us Jose James MD LAB POCT ORDERABLES - DEVICE Final Result [facility] [place] [address] from Last 3 Months Insurance BLUE ACCESS CHOICE [place] CHO[place] [employer] [place] Advance Directives For more information, please contact: [phone] * LIMITED - No CPR (Latest Code Status on File) Date Activated Date Inactivated Comments 02/13/2024 3:12 AM 03/02/2024 8:35 PM Question Answer Comments Provide aggressive medical m anagement before a full cardiopulmonary arrest occurs. Use antibiotics, IV Fluids, and medical treatment unless specifically selected below: No intubation * Full Code Date Activated Date Inactivated Comments 02/12/2024 10:02 PM 02/13/2024 3:12 AM Care Teams Computer Technician Relationship Specialty Start Date End Date Ravindra Rizo MD PhD [address] [place] [address] PCP - General Neurology 05/25/23
--- OUTSIDE RECORDS SUMMARY | 2024-03-17 23:12 | XMS_ITS | Clinical Summary ---
Author Organization [facility] Address [address] [place] [address] Care Team Providers Care Spray Applicator Name Role Phone Ravindra Rizo MD PhD Primary Care Provider [phone] Allergies No known active allergies Medications venlafaxine [...] tablet (20 mg total) by mouth daily Active benztropine (COGENTIN) 2 mg tabletIndications :drug-induced [...] (two) times a day 60 tablet 11 2024 Discontinued atorvastatin (LIPITOR) 20 mg tablet Take 1 tablet (20 mg total) by mouth daily 024 2024 Discontinued tamsulosin (FLOMAX) 0.4 mg extended release capsule Take 1 capsule (0.4 mg total) by mouth daily 2023 Discontinued(E rror) risperiDONE (RisperDAL) 1 mg tablet Take 1 tablet (1 mg total) by mouth 2 (two) times a day 60 tablet 2024 Discontinued(S top Taking at Discharge) QUEtiapine (SEROquel) 25 mg tablet Take 1 tablet (25 mg total) by mouth 3 (three) times a day as needed (Use Seroquel 25mg-50mg as needed up to three times daily for breakthrough agitation) 90 tablet 2024 Discontinued(S top Taking at Discharge) benzonatate [...] a day as needed for muscle spasms 024 2024 Discontinued(S top Taking at Discharge) Active Problems Problem Noted Date Diagnosed Date Delirium 02/18/2024 Dystonic drug reaction 02/18/2024 Major neurocognitive disorde r due to probable Alzheimer's disease, with behavioral disturbance 02/18/2024 Altered mental status, unspe cified altered mental status type 02/12/2024 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 [address] [place] [address] Jose James MD Knight, Caleb, MD Ma, MD Archie Babcock, MD Grupo Mabry, MD Malissa Mcmillan, Eulalia Santana MD Altered mental status, unspecified altered mental status type (Primary Dx); Pneumonia of both lungs due to infectious organism, unspecified part of lung; Delirium; Dystonic drug reaction; 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, with behavioral disturbance (HCC) Discharge Disposition: Discharge to SNF 02/08/2024 Orders Only [address] [place] [address] Nel Diego PA Gait instability (Primary Dx) 02/04/2024 9:00 AM CUSTOMER SERVICE COORDINATOR Office Visit [address] [place] [address] Nel Diego PA Early onset Alzheimer's dementia with agitation, unspecified dementia severity (HCC) (Primary Dx); Gait instability 01/25/[address] [place] [address] Laurie Silverman, RMGarima Medication 01/19/[address] [place] [address] Bibi Traore, KARY 01/13/2024 Orders Only [facility] [address] Floor [address] [place] [address] Nel Diego PA 01/12/2024 Orders Only [facility] [address] [place] [address] [address] [place] [phone] Nikkie Chaudhry RN 01/04/2024 9:30 AM CUSTOMER SERVICE COORDINATOR Infusion [facility] [address] [place] [phone] Mild early onset Alzheimer's dementia without behavioral disturbance, psychotic disturbance, mood disturbance, or anxiety (HCC) (Primary Dx) 12/21/2023 9:30 AM CDT Infusion [facility] [address] [place], [place] [address] [address] [place] [phone] Mild early onset Alzheimer's dementia without behavioral disturbance, psychotic disturbance, mood disturbance, or anxiety (HCC) (Primary Dx) 12/17/2023 Telephone [facility] [facility] First [address] [place] [phone] Ifrah Casillas, MANAGER EMERGENCY 12/16/2023 Orders Only [facility] [address] Advanced Medicine 6th [place] [address] [place] [phone] Ravindra Rizo MD PhD from Last 3 Months Immunizations Name Administration Dates Next Due Influenza, Quadrivalent, Spl it, Intramuscular 12/16/2020,11/20/2019,12/06/2018,12/06 Influenza, Trivalent, Preser vative Free, Intramuscular 12/31/2014 ZOSTER Recombinant 03/26/2020,09/14/2019 Medical History Medical History Date Comments Anxiety Alzheimer disease (HCC) Family History Medical History Relation Name Comments Alzheimer's disease Sister Relation Name Status Comments Sister Social History Tobacco Use Types Packs/Day Years [...] on file Legal Sex Male 8:30 AM CUSTOMER SERVICE COORDINATOR Gender Identity Not on file Sexual Orientation Not on file Occupation Industry Job Start 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 [employer] Not on file Not on file Not on f ile Obstetrics History Last Filed Vital Signs Vital Sign Reading Time Taken Comments Blood Pressure 130/81 03/02/2024 8:40 AM CUSTOMER SERVICE COORDINATOR Pulse 52 03/02/2024 8:40 AM CUSTOMER SERVICE COORDINATOR Temperature 36.6 ??C (97.9 ??F) 03/02/2024 8:40 AM CS T Respiratory Rate 18 03/02/2024 8:40 AM CUSTOMER SERVICE COORDINATOR Oxygen Saturation 93% 03/02/2024 8:40 AM CUSTOMER SERVICE COORDINATOR Inhaled Oxygen Concentration - - Weight 90 kg (198 lb 6.6 oz) 03/02/2024 6:20 AM CUSTOMER SERVICE COORDINATOR Height 193 cm (6' 3.98 ) 02/12/2024 10:02 PM CUSTOMER SERVICE COORDINATOR Body Mass Index 24.16 02/12/2024 10:02 PM CUSTOMER SERVICE COORDINATOR Plan of Treatment Health Maintenance Due Date Last Done Comments Colon Cancer Screening-Colonoscopy 1960 Depression Screening 1960 Hepatitis C Screening 1960 Prostate Cancer Screening-PSA 1959 DTaP/Tdap/Td Vaccine (1 - Tdap) 07/14/1970 Hepatitis B Screening 07/14/1977 Regular Well Visit/Exam 18-64 07/14/1977 Covid-19 Vaccine ( season) 2023 06/08/2020, 05/11/2020 Influenza Vaccine (#1) 2023 , 11/20/2019, 12/06/2018, Additional history exists Zoster Vaccine Completed 03/26/2020, 09/14/2019 Pneumococcal vaccine <65 Aged Out No longer eligible based on patient's age to complete this topic Procedures Procedure Name Priority Date/Time Associated Diagnosis Comments RESPIRATORY PATHOGEN PANEL STAT 02/29/2024 12:54 PM CUSTOMER SERVICE COORDINATOR CT HEAD WO CONTRAST ED Urgent/IP Urgent 02/29/2024 11:43 AM CUSTOMER SERVICE COORDINATOR EGFR STAT 02/29/2024 11:18 AM CUSTOMER SERVICE COORDINATOR DIFFERENTIAL AUTO STAT 02/29/2024 11: 18 AM CUSTOMER SERVICE COORDINATOR CBC WITH AUTO DIFFERENTIAL STAT 02/29/2024 11:18 AM CUSTOMER SERVICE COORDINATOR BLOOD GAS, VENOUS STAT 02/29/2024 11: 18 AM CUSTOMER SERVICE COORDINATOR COMPREHENSIVE METABOLIC PANEL STAT 02/29/2024 11:18 AM CUSTOMER SERVICE COORDINATOR INFECTION PREVENTION EDEN AURIS PCR, SURVEILLANCE Routine 02/24/2024 9:54 PM CUSTOMER SERVICE COORDINATOR INFECTION PREVENTION EDEN AURIS PCR, SURVEILLANCE Routine 02/18/2024 8:39 PM CUSTOMER SERVICE COORDINATOR URINALYSIS AND REFLEX TO MICROSCOPIC AND CULTURE Routine 02/17/2024 6:24 PM CUSTOMER SERVICE COORDINATOR ATOMIC WELDER EVALUATE AND TREAT Routine 02/15/2024 10:30 AM CUSTOMER SERVICE COORDINATOR IRON PROFILE W/ IBC Routine 02/14/2024 9 :36 PM CUSTOMER SERVICE COORDINATOR FERRITIN Routine 02/14/2024 9:36 PM CUSTOMER SERVICE COORDINATOR EGFR Routine 02/14/2024 9:36 PM CUSTOMER SERVICE COORDINATOR DIFFERENTIAL AUTO Routine 02/14/2024 9:3 6 PM CUSTOMER SERVICE COORDINATOR BASIC METABOLIC PANEL Routine 02/14/2024 9:36 PM CUSTOMER SERVICE COORDINATOR CBC WITH AUTO DIFFERENTIAL Routine 02/14/2024 9:36 PM CUSTOMER SERVICE COORDINATOR URINALYSIS AND REFLEX TO MICROSCOPIC Routine 02/14/2024 9:36 PM CUSTOMER SERVICE COORDINATOR INFECTION PREVENTION EDEN AURIS PCR, SURVEILLANCE Routine 02/14/2024 9:36 PM CUSTOMER SERVICE COORDINATOR EGFR Routine 02/13/2024 11:45 PM CUSTOMER SERVICE COORDINATOR DIFFERENTIAL AUTO Routine 02/13/2024 11: 45 PM CUSTOMER SERVICE COORDINATOR BASIC METABOLIC PANEL Routine 02/13/2024 11:45 PM CUSTOMER SERVICE COORDINATOR CBC WITH AUTO DIFFERENTIAL Routine 02/13/2024 11:45 PM CUSTOMER SERVICE COORDINATOR EGFR STAT 02/13/2024 12:06 AM CUSTOMER SERVICE COORDINATOR DIFFERENTIAL AUTO STAT 02/13/2024 12: 06 AM CUSTOMER SERVICE COORDINATOR COMPREHENSIVE METABOLIC PANEL STAT 02/13/2024 12:06 AM CUSTOMER SERVICE COORDINATOR CBC WITH AUTO DIFFERENTIAL STAT 02/13/2024 12:06 AM CUSTOMER SERVICE COORDINATOR XR CHEST 1 VIEW ED 02/12/2024 1:50 PM CUSTOMER SERVICE COORDINATOR TROPONIN I HIGH-SENSITIVITY 2-HOUR Timed 02/12/2024 1:11 PM CUSTOMER SERVICE COORDINATOR DRUGS OF ABUSE SCREEN, URINE WITHOUT CONFIRMATION STAT 02/12/2024 1:11 PM CUSTOMER SERVICE COORDINATOR RESPIRATORY PATHOGEN PANEL Routine 02/12/2024 1:11 PM CUSTOMER SERVICE COORDINATOR URINALYSIS AND REFLEX TO MICROSCOPIC AND CULTURE STAT 02/12/2024 1:11 PM CUSTOMER SERVICE COORDINATOR ECG 12-LEAD Routine 02/12/2024 1:02 PM CUSTOMER SERVICE COORDINATOR CT HEAD WO CONTRAST ED 02/12/2024 1 1:50 AM CUSTOMER SERVICE COORDINATOR CREATINE KINASE (CK), TOTAL STAT 02/12/2024 11:19 AM CUSTOMER SERVICE COORDINATOR EGFR STAT 02/12/2024 11:19 AM CUSTOMER SERVICE COORDINATOR DIFFERENTIAL AUTO STAT 02/12/2024 11: 19 AM CUSTOMER SERVICE COORDINATOR BLOOD GAS, VENOUS Routine 02/12/2024 11: 19 AM CUSTOMER SERVICE COORDINATOR AMMONIA STAT 02/12/2024 11:19 AM CUSTOMER SERVICE COORDINATOR PHOSPHORUS Routine 02/12/2024 11:19 AM CUSTOMER SERVICE COORDINATOR MAGNESIUM Routine 02/12/2024 11:19 AM CUSTOMER SERVICE COORDINATOR SEPSIS LACTATE WITH REFLEX STAT 02/12/2024 11:19 AM CUSTOMER SERVICE COORDINATOR TROPONIN I HIGH-SENSITIVITY SERIES (BASELINE, 2HR, 4HR, 6HR) STAT 02/12/2024 11:19 AM CUSTOMER SERVICE COORDINATOR THYROID FUNCTION CASCADE STAT 02/12/2024 11:19 AM CUSTOMER SERVICE COORDINATOR ETHANOL STAT 02/12/2024 11:19 AM CUSTOMER SERVICE COORDINATOR HEPATIC FUNCTION PANEL STAT 02/12/2024 11:19 AM CUSTOMER SERVICE COORDINATOR CBC WITH AUTO DIFFERENTIAL STAT 02/12/2024 11:19 AM CUSTOMER SERVICE COORDINATOR BASIC METABOLIC PANEL STAT 02/12/2024 11:19 AM CUSTOMER SERVICE COORDINATOR BLOOD CULTURE STAT 02/12/2024 11:19 AM CUSTOMER SERVICE COORDINATOR BLOOD CULTURE STAT 02/12/2024 11:19 AM CUSTOMER SERVICE COORDINATOR POCT GLUCOSE DEVICE Routine 02/12/2024 1 1:07 AM CUSTOMER SERVICE COORDINATOR from Last 3 Months Results * (ABNORMAL) Respiratory pathogen panel Nasopharyngeal (02/29/2024 12:54 PM CUSTOMER SERVICE COORDINATOR) Pathologist [facility] Influenza A RNA Not Detected Not Detected Influenza B RNA Not Detected Not Detected [facility] RSV RNA Not Detected Not Detected [facility] COVID-19 RNA Detected(A) Not Detected [facility] Coronavirus 229E RNA Not Detected Not Detected [facility] Coronavirus HKU1 RNA Not Detected Not Detected [facility] Coronavirus NL63 RNA Not Detected Not Detected [facility] Coronavirus OC43 RNA Not Detected Not Detected [facility] Adenovirus DNA Not Detected Not Detected [facility] Metapneumovirus RNA Not Detected Not Detected [facility] Rhinovirus/Enterov irus RNA Not Detected Not Detected [facility] Parainfluenza 1 RNA Not Detected Not Detected [facility] Parainfluenza 2 RNA Not Detected Not Detected [facility] Parainfluenza 3 RNA Not Detected Not Detected [facility] Parainfluenza 4 RNA Not Detected Not Detected [facility] B. pertussis DNA Not Detected Not Detected [facility] B. parapertussis DNA Not Detected Not Detected [facility] C. pneumoniae DNA Not Detected Not Detected [facility] M. pneumoniae DNA Not Detected Not Detected [facility] Nasopharyngeal 02/29/2024 12 :54 PM CUSTOMER SERVICE COORDINATOR 02/29/2024 1:11 PM CUSTOMER SERVICE COORDINATOR Narrative [facility] - 02/29/2024 2:17 PM CUSTOMER SERVICE COORDINATOR Is the Patient experiencing symptoms consistent with COVID?->Yes Surveillance testing for transplant patient?->No ??Interpretive Data The Swarm64 FilmArray Respiratory Panel (RP2.1) assay is a [...] assay has FDA clearance for testing of GENERAL MERCHANDISE MANAGER swabs. ??The performance of additional specimen types has been assessed by the performing laboratory. ??The performance characteristics of this assay have been determined by [facility] Molecular Infectious Disease Laboratory. Current interpretive data was last revised on 21. us Eulalia Leonardo MD LAB MICROBIOLOGY - GENERAL ORDERABLES Final Result [facility] Department of Laboratories [place], [place] [id number] * CT Head WO Contrast (02/29/2024 11:43 AM CUSTOMER SERVICE COORDINATOR) Anatomical Region Laterality Modality Head and Neck N/A Computed Tomogra phy 02/29/2024 12:0 0 PM CUSTOMER SERVICE COORDINATOR Impressions 02/29/2024 12:21 PM CUSTOMER SERVICE COORDINATOR No acute intracranial process. Dictated by: Fred Mcgowan M.D. The radiology attending physician has personally reviewed this study, and had reviewed and/or edited this written report and agrees with it. Electronically signed by: Nasir Murillo M.D. Narrative 02/29/2024 12:21 PM CUSTOMER SERVICE COORDINATOR EXAMINATION: CT head without contrast HISTORY: 63-year-old [...] it. Electronically signed by: Nasir Murillo M.D. us Eulalia Leonardo MD IM CT PROCEDURES Final Result * eGFR (02/29/2024 11:18 AM CUSTOMER SERVICE COORDINATOR) eGFR 82 >=60 mL/min/1. 73 m2 Comment: [...] reviewed 2020. Blood 02/29/2024 11:1 8 AM CUSTOMER SERVICE COORDINATOR 02/29/2024 11:40 AM CUSTOMER SERVICE COORDINATOR Eulalia Leonardo MD LAB BLOOD ORDERAB LES Final Result [facility] Department [place] [address] * Differential, auto (02/29/2024 11:18 AM CUSTOMER SERVICE COORDINATOR) [facility] Neutrophil abs 5.0 1.5 - 6.5 K/cumm Imm gran abs 0.0 0.0 - 0.1 K/cumm [facility] Lymphocyte abs 1.9 0.8 - 3.3 K/cumm [facility] Monocyte abs 0.8 0.2 - 0.8 K/cumm [facility] Eosinophil abs 0.2 0.0 - 0.5 K/cumm [facility] Basophil abs 0.0 0.0 - 0.1 K/cumm [facility] Neutrophil pct 62.9 % [facility] Comment: Interpretive Data Percent cell count reference ranges are not reported, since discordance with absolute values may lead to misinterpretation of CBC data. Current Interpretive Data was last revised on 2017. Imm gran pct 0.4 % [facility] Comment: Interpretive Data Percent cell count reference ranges are not reported, since discordance with absolute values may lead to misinterpretation of CBC data. Current Interpretive Data was last revised on 2017. Lymphocyte pct 24.3 % [facility] Comment: Interpretive Data Percent cell count reference ranges are not reported, since discordance with absolute values may lead to misinterpretation of CBC data. Current Interpretive Data was last revised on 2017. Monocyte pct 9.9 % [facility] Comment: Interpretive Data Percent cell count reference ranges are not reported, since discordance with absolute values may lead to misinterpretation of CBC data. Current Interpretive Data was last revised on 2017. Eosinophil pct 2.2 % [facility] Comment: Interpretive Data Percent cell count reference ranges are not reported, since discordance with absolute values may lead to misinterpretation of CBC data. Current Interpretive Data was last revised on 2017. Basophil pct 0.3 % [facility] Comment: Interpretive Data Percent cell count reference ranges are not reported, since discordance with absolute values may lead to misinterpretation of CBC data. Current Interpretive Data was last revised on 2017. Blood 02/29/2024 11:1 8 AM CUSTOMER SERVICE COORDINATOR 02/29/2024 11:40 AM CUSTOMER SERVICE COORDINATOR us Eulalia Leonardo MD LAB BLOOD ORDERAB LES Final Result [facility] [place] [address] * CBC with auto differential (02/29/2024 11:18 AM CUSTOMER SERVICE COORDINATOR) WBC 7.9 3.8 - 9.9 K/cumm Hgb 14.1 13.0 - 17.5 g/dL [facility] Hct 41.7 38.9 - 50.3 % [facility] Plt 230 150 - 400 K/cumm [facility] MPV 9.7 9.1 - 12.3 fL [facility] RBC 4.73 4.30 - 5.80 M/cumm [facility] MCV 88.2 81.3 - 96.4 fL [facility] MCH 29.8 27.1 - 33.3 pg [facility] MCHC 33.8 32.3 - 35.7 g/dL [facility] RDW CV 12.4 11.1 - 14.9 % [facility] RDW SD 40.6 35.7 - 48.1 fL [facility] NRBC abs 0.00 0.00 - 0.01 K/cumm [facility] Blood 02/29/2024 11:1 8 AM CUSTOMER SERVICE COORDINATOR 02/29/2024 11:40 AM CUSTOMER SERVICE COORDINATOR us Eulalia Leonardo MD LAB BLOOD ORDERAB LES Final Result [facility] Department [place] [address] * (ABNORMAL) Blood gas, venous (02/29/2024 11:18 AM CUSTOMER SERVICE COORDINATOR) [facility] pH, Venous 7.45(H) 7.32 - 7.43 PCO2, Venous 35(L) 40 - 50 mmHg [facility] PO2, Venous 64 mmHg [facility] Comment: Interpretive Data No Reference Range Established Current Interpretive Data was last revised on 2017. HCO3 Venous, Calculated 25 20 - 30 mmol/L [facility] BE, venous 1 mmol/L [facility] Comment: Interpretive Data No Reference Range Established Current Interpretive Data was last revised on 2017. Blood 02/29/2024 11:1 8 AM CUSTOMER SERVICE COORDINATOR 02/29/2024 11:37 AM CUSTOMER SERVICE COORDINATOR us Eulalia Leonardo MD LAB BLOOD ORDERAB LES Final Result [facility] Department [place] [address] * (ABNORMAL) Comprehensive metabolic panel (02/29/2024 11:18 AM CUSTOMER SERVICE COORDINATOR) Sodium 140 135 - 145 mmol/L Potassium, pl 4.7 3.3 - 4.9 mmol/L [facility] Chloride 104 97 - 110 mmol/L [facility] CO2 25 22 - 32 mmol/L [facility] Anion gap 11 2 - 15 mmol/L [facility] BUN 17 6 - 25 mg/dL [facility] Creatinine 1.02 0.80 - 1.30 mg/dL [facility] Glucose 98 70 - 199 mg/dL [facility] Comment: Interpretive Data Fasting glucose >/= 126 [...] 2022. Calcium 9.5 8.5 - 10.3 mg/dL [facility] Bilirubin, total 0.8 0.1 - 1.2 mg/dL [facility] Protein, pl 7.2 6.5 - 8.5 g/dL [facility] Albumin 4.1 3.5 - 5.0 g/dL [facility] Alk phos 135(H) 40 - 130 Units/L [facility] ALT 68(H) 7 - 55 Units/L [facility] AST 37 10 - 50 Units/L [facility] Blood 02/29/2024 11:1 8 AM CUSTOMER SERVICE COORDINATOR 02/29/2024 11:40 AM CUSTOMER SERVICE COORDINATOR Eulalia Leonardo MD LAB BLOOD ORDERAB LES Final Result Performing Organization Address City/[facility]/ZIP [place] [address] * Infection Prevention Eden auris PCR, surveillance Axilla/Groin (02/24/2024 9:54 PM CUSTOMER SERVICE COORDINATOR) Eden auris DNA Not Detected Not Detected [facility] Comment: Interpretive Data Testing performed by [facility] Molecular Infectious Disease Laboratory using the [employer] MDX Eden auris assay. ??This assay detects DNA from Eedn auris using Real-Time PCR. ??This assay is laboratory developed and is not cleared by the [facility] Food and Drug Administration. ??The performance characteristics have been verified by the [facility] Molecular Infectious Disease Laboratory. Interpretive data was last reviewed on 06/17/2023 Axilla/Groin 02/24/2024 9:54 PM CUSTOMER SERVICE COORDINATOR 02/25/2024 1:30 AM CUSTOMER SERVICE COORDINATOR David Thakur MD LAB MICROBIOLOGY - GENERAL ORDER MICHAEL Final Result Performing Organization Address [facility] Co de Phone Number A[facility] [place] [address] [facility] * Infection Prevention Eden auris PCR, surveillance Axilla/Groin (02/18/2024 8:39 PM CUSTOMER SERVICE COORDINATOR) Eden auris DNA Not Detected Not Detected [facility] Comment: Interpretive Data Testing performed by [facility] Molecular Infectious Disease Laboratory using the [employer] MDX Eden auris assay. ??This assay detects DNA from Eden auris using Real-Time PCR. ??This assay is laboratory developed and is not cleared by the [place] Food and Drug Administration. ??The performance characteristics have been verified by the [facility] Molecular Infectious Disease Laboratory. Interpretive data was last reviewed on 06/17/2023 Axilla/Groin 02/18/2024 8:39 PM CUSTOMER SERVICE COORDINATOR 02/18/2024 8:53 PM CUSTOMER SERVICE COORDINATOR David Thakur MD LAB MICROBIOLOGY - GENERAL ORDER MICHAEL Final Result Performing Organization Address City/[facility]/ZIP Co de Phone Number [facility] Department [place] [address] BJ * (ABNORMAL) Urinalysis reflex to microscopic and culture Urine (02/17/2024 6:24 PM CUSTOMER SERVICE COORDINATOR) Color, ur Yellow Yellow Clarity, ur Turbid(A) Clear [facility] Specific gravity, ur 1.033(H) 1.003 - 1.030 [facility] pH, urine 6.0 [facility] Comment: Interpretive Data ? Urine pH is affected by diet, medications, systemic acid-base disturbances, and renal tubular function. ??pH may affect urinary stone formation. ??For example, urine pH below 6.0 may help reduce the tendency for calcium phosphate stones and pH greater than 6.0 may reduce the tendency for uric acid stone formation. Source: [facility] [email or web address] Current Interpretive Data was last revised on 2017 Protein, ur ql Trace Negative [facility] Glucose, ur ql Negative Negative [facility] Ketones, ur Negative Negative [facility] Bilirubin, ur Negative Negative [facility] Blood, ur Negative Negative [facility] Urobilinogen, ur <2.0 <2.0 mg/dL [facility] Nitrite, ur Negative Negative [facility] Leukocyte esterase, ur Negative Negative [facility] UA reflex comment Reflex conditions for microscopic UA and culture not met. [facility] Urine 02/17/2024 6:24 PM CUSTOMER SERVICE COORDINATOR 02/17/2024 6:30 PM CUSTOMER SERVICE COORDINATOR Berry Lombardo MD LAB MICROBIOLOGY - GEN ERAL ORDERABLES Final Result Performing Organization Address [facility] Co de Phone Number [facility] [place] [address] * ATOMIC WELDER Evaluation and Treatment (02/15/2024 10:30 AM CUSTOMER SERVICE COORDINATOR) Narrative Enedina Larsen, ATOMIC WELDER - 02/15/2024 10:30 AM CUSTOMER SERVICE COORDINATOR Enedina Larsen, ATOMIC WELDER ? 02/15/2024 ??2:41 PM Speech-Language Pathology: Clinical Bedside Swallow HPI/PMH 63 y.o. male with a history of early onset AD, HLD, HTN, ??who presents with subacute on chronic on chronic progression of dementia symptoms w/ 2 week onset of rigidity and cervical dystonia iso risperdal use. Dementia symptoms starting in 2018, follows at [facility] family noticed decline September 2023 No prior ATOMIC WELDER notes Respiratory/Intubation Status: Imagin02/11 CXR- Patchy bibasilar [...] Aspiration Risk: Mild aspiration risk ([id number]) Plan ATOMIC WELDER Frequency of Services during current admission: One-time visit (Discharge from this service) ATOMIC WELDER Recommendation (Add'l Services): No further ATOMIC WELDER indicated Further Assessment/Follow up Indicated: none for swallowing Next Visit Plan:No further ST warranted Additional Referrals: none at this time Please reference care plan for treatment goals, if indicated. Discharge Summary Statement If this is the last swallow therapy visit, this serves as the discharge summary. Yoko Calvin MD ATOMIC WELDER ORDERABLES Final Result * Infection Prevention Eden auris PCR, surveillance Axilla/Groin (02/14/2024 9:36 PM CUSTOMER SERVICE COORDINATOR) Eden auris DNA Not Detected Not Detected [facility] Comment: Interpretive Data Testing performed by [facility] Molecular Infectious Disease Laboratory using the [employer] Liaison MDX Eden auris assay. ??This assay detects DNA from Eden auris using Real-Time PCR. ??This assay is laboratory developed and is not cleared by the [place] Food and Drug Administration. ??The performance characteristics have been verified by the [facility] Molecular Infectious Disease Laboratory. Interpretive data was last reviewed on 06/17/2023 Axilla/Groin 02/14/2024 9:36 PM CUSTOMER SERVICE COORDINATOR 02/14/2024 10:12 PM CUSTOMER SERVICE COORDINATOR us David Thakur MD LAB MICROBIOLOGY - GENERAL ORDER MICHAEL Final Result Performing Organization Address [facility] Co de Phone Number ABRAN BOSTON [facility] [place] [address] BJ * eGFR (02/14/2024 9:36 PM CUSTOMER SERVICE COORDINATOR) eGFR 76 >=60 mL/min/1. 73 m2 Comment: [...] last reviewed 2020. Blood 02/14/2024 9:36 PM CUSTOMER SERVICE COORDINATOR 02/14/2024 10:08 PM CUSTOMER SERVICE COORDINATOR us River Almanza MD LAB BLOOD ORDERABLES Fin al Result Performing Organization Address [facility] Co de Phone Number ABRAN BOST[facility] Department [place] [address] * Differential, auto (02/14/2024 9:36 PM CUSTOMER SERVICE COORDINATOR) Neutrophil abs 2.9 1.5 - 6.5 K/cumm Imm gran abs 0.0 0.0 - 0.1 K/cumm [facility] Lymphocyte abs 1.4 0.8 - 3.3 K/cumm [facility] Monocyte abs 0.5 0.2 - 0.8 K/cumm [facility] Eosinophil abs 0.2 0.0 - 0.5 K/cumm [facility] Basophil abs 0.0 0.0 - 0.1 K/cumm [facility] Neutrophil pct 57.2 % [facility] Comment: Interpretive Data Percent cell count reference ranges are not reported, since discordance with absolute values may lead to misinterpretation of CBC data. Current Interpretive Data was last revised on 2017. Imm gran pct 0.4 % [facility] Comment: Interpretive Data Percent cell count reference ranges are not reported, since discordance with absolute values may lead to misinterpretation of CBC data. Current Interpretive Data was last revised on 2017. Lymphocyte pct 28.3 % [facility] Comment: Interpretive Data Percent cell count reference ranges are not reported, since discordance with absolute values may lead to misinterpretation of CBC data. Current Interpretive Data was last revised on 2017. Monocyte pct 10.2 % [facility] Comment: Interpretive Data Percent cell count reference ranges are not reported, since discordance with absolute values may lead to misinterpretation of CBC data. Current Interpretive Data was last revised on 2017. Eosinophil pct 3.5 % [facility] Comment: Interpretive Data Percent cell count reference ranges are not reported, since discordance with absolute values may lead to misinterpretation of CBC data. Current Interpretive Data was last revised on 2017. Basophil pct 0.4 % [facility] Comment: Interpretive Data Percent cell count reference ranges are not reported, since discordance with absolute values may lead to misinterpretation of CBC data. Current Interpretive Data was last revised on 2017. Blood 02/14/2024 9:36 PM CUSTOMER SERVICE COORDINATOR 02/14/2024 10:23 PM CUSTOMER SERVICE COORDINATOR us River Almanza MD LAB BLOOD ORDERABLES Fin al Result Performing Organization Address [facility]/ZIP Co de Phone Number [facility] [email or web address] [address] * (ABNORMAL) Iron profile w/ IBC (02/14/2024 9:36 PM CUSTOMER SERVICE COORDINATOR) Iron 40(L) 50 - 150 mcg/dL TIBC 138(L) 250 - 400 mcg/dL [facility] Transferrin saturation 29 20 - 50 % [facility] Blood 02/14/2024 9:36 PM CUSTOMER SERVICE COORDINATOR 02/14/2024 10:08 PM CUSTOMER SERVICE COORDINATOR Berry Lombardo MD LAB BLOOD ORDERABLES F inal Result Performing Organization Address [facility] de Phone Number [facility] [email or web address] [address] * Urinalysis reflex to microscopic (02/14/2024 9:36 PM CUSTOMER SERVICE COORDINATOR) Color, ur Straw Yellow Clarity, ur Clear Clear [facility] Specific gravity, ur 1.020 1.003 - 1.030 [facility] pH, urine 6.5 [facility] Comment: Interpretive Data ? Urine pH is affected by diet, medications, systemic acid-base disturbances, and renal tubular function. ??pH may affect urinary stone formation. ??For example, urine pH below 6.0 may help reduce the tendency for calcium phosphate stones and pH greater than 6.0 may reduce the tendency for uric acid stone formation. Source: [facility] [email or web address] Current Interpretive Data was last revised on 2017 Protein, ur ql Negative Negative [facility] Glucose, ur ql Negative Negative [facility] Ketones, ur Negative Negative [facility] Bilirubin, ur Negative Negative [facility] Blood, ur Negative Negative [facility] Urobilinogen, ur <2.0 <2.0 mg/dL [facility] Nitrite, ur Negative Negative [facility] Leukocyte esterase, ur Negative Negative [facility] UA reflex comment Reflex conditions for microscopic UA not met. [facility] Urine 02/14/2024 9:36 PM CUSTOMER SERVICE COORDINATOR 02/14/2024 10:01 PM CUSTOMER SERVICE COORDINATOR us Yoko Calvin MD LAB URINE ORDERABLES Final Resul t Performing Organization Address [facility]/State/ZIP Co de Phone Number [facility] Department [place] [address] * (ABNORMAL) CBC with auto differential (02/14/2024 9:36 PM CUSTOMER SERVICE COORDINATOR) WBC 5.1 3.8 - 9.9 K/cumm Hgb 12.7(L) 13.0 - 17.5 g/dL [facility] Hct 37.1(L) 38.9 - 50.3 % [facility] Plt 188 150 - 400 K/cumm [facility] MPV 10.0 9.1 - 12.3 fL [facility] RBC 4.27(L) 4.30 - 5.80 M/cumm [facility] MCV 86.9 81.3 - 96.4 fL [facility] MCH 29.7 27.1 - 33.3 pg [facility] MCHC 34.2 32.3 - 35.7 g/dL [facility] RDW CV 12.3 11.1 - 14.9 % [facility] RDW SD 39.3 35.7 - 48.1 fL [facility] NRBC abs 0.00 0.00 - 0.01 K/cumm [facility] Blood 02/14/2024 9:36 PM CUSTOMER SERVICE COORDINATOR 02/14/2024 10:23 PM CUSTOMER SERVICE COORDINATOR us River Almanza MD LAB BLOOD ORDERABLES Fin al Result [facility] Department [place] [address] * Ferritin (02/14/2024 9:36 PM CUSTOMER SERVICE COORDINATOR) Pathologist [facility] Ferritin 346 30 - 400 ng/mL Blood 02/14/2024 9:36 PM CUSTOMER SERVICE COORDINATOR 02/14/2024 10:08 PM CUSTOMER SERVICE COORDINATOR Berry Lombardo MD LAB BLOOD ORDERABLES F inal Result Performing Organization Address City/[facility]/ZIP Co de Phone Number [facility] Department [place] [address] * Basic metabolic panel (02/14/2024 9:36 PM CUSTOMER SERVICE COORDINATOR) [facility] Sodium 140 135 - 145 mmol/L Potassium, pl 4.0 3.3 - 4.9 mmol/L [facility] Chloride 102 97 - 110 mmol/L [facility] CO2 31 22 - 32 mmol/L [facility] Anion gap 7 2 - 15 mmol/L [facility] BUN 18 6 - 25 mg/dL [facility] Creatinine 1.09 0.80 - 1.30 mg/dL [facility] Glucose 100 70 - 199 mg/dL [facility] Comment: Interpretive Data Fasting glucose >/= 126 [...] 2022. Calcium 9.2 8.5 - 10.3 mg/dL [facility] Blood 02/14/2024 9:36 PM CUSTOMER SERVICE COORDINATOR 02/14/2024 10:08 PM CUSTOMER SERVICE COORDINATOR River Almanza MD LAB BLOOD ORDERABLES Fin al Result Performing Organization Address City/[facility]/ZIP Co de Phone Number [facility] Department [place] [address] * eGFR (02/13/2024 11:45 PM CUSTOMER SERVICE COORDINATOR) [facility] eGFR 73 >=60 mL/min/1. 73 m2 Comment: [...] reviewed 2020. Blood 02/13/2024 11:4 5 PM CUSTOMER SERVICE COORDINATOR 02/14/2024 12:44 AM CUSTOMER SERVICE COORDINATOR us River Almanza MD LAB BLOOD ORDERABLES Fin al Result [facility] Department [place] [address] * Differential, auto (02/13/2024 11:45 PM CUSTOMER SERVICE COORDINATOR) [facility] Neutrophil abs 3.0 1.5 - 6.5 K/cumm Imm gran abs 0.0 0.0 - 0.1 K/cumm [facility] Lymphocyte abs 1.6 0.8 - 3.3 K/cumm [facility] Monocyte abs 0.5 0.2 - 0.8 K/cumm [facility] Eosinophil abs 0.2 0.0 - 0.5 K/cumm [facility] Basophil abs 0.0 0.0 - 0.1 K/cumm [facility] Neutrophil pct 56.3 % [facility] Comment: Interpretive Data Percent cell count reference ranges are not reported, since discordance with absolute values may lead to misinterpretation of CBC data. Current Interpretive Data was last revised on 2017. Imm gran pct 0.2 % [facility] Comment: Interpretive Data Percent cell count reference ranges are not reported, since discordance with absolute values may lead to misinterpretation of CBC data. Current Interpretive Data was last revised on 2017. Lymphocyte pct 30.3 % [facility] Comment: Interpretive Data Percent cell count reference ranges are not reported, since discordance with absolute values may lead to misinterpretation of CBC data. Current Interpretive Data was last revised on 2017. Monocyte pct 9.0 % [facility] Comment: Interpretive Data Percent cell count reference ranges are not reported, since discordance with absolute values may lead to misinterpretation of CBC data. Current Interpretive Data was last revised on 2017. Eosinophil pct 3.6 % [facility] Comment: Interpretive Data Percent cell count reference ranges are not reported, since discordance with absolute values may lead to misinterpretation of CBC data. Current Interpretive Data was last revised on 2017. Basophil pct 0.6 % [facility] Comment: Interpretive Data Percent cell count reference ranges are not reported, since discordance with absolute values may lead to misinterpretation of CBC data. Current Interpretive Data was last revised on 2017. Blood 02/13/2024 11:4 5 PM CUSTOMER SERVICE COORDINATOR 02/14/2024 12:44 AM CUSTOMER SERVICE COORDINATOR us River Almanza MD LAB BLOOD ORDERABLES Fin al Result [facility] [place] [address] * (ABNORMAL) CBC with auto differential (02/13/2024 11:45 PM CUSTOMER SERVICE COORDINATOR) WBC 5.3 3.8 - 9.9 K/cumm Hgb 12.6(L) 13.0 - 17.5 g/dL [facility] Hct 36.9(L) 38.9 - 50.3 % [facility] Plt 184 150 - 400 K/cumm [facility] MPV 9.7 9.1 - 12.3 fL [facility] RBC 4.20(L) 4.30 - 5.80 M/cumm [facility] MCV 87.9 81.3 - 96.4 fL [facility] MCH 30.0 27.1 - 33.3 pg [facility] MCHC 34.1 32.3 - 35.7 g/dL [facility] RDW CV 12.3 11.1 - 14.9 % [facility] RDW SD 39.7 35.7 - 48.1 fL [facility] NRBC abs 0.00 0.00 - 0.01 K/cumm [facility] Blood 02/13/2024 11:4 5 PM CUSTOMER SERVICE COORDINATOR 02/14/2024 12:44 AM CUSTOMER SERVICE COORDINATOR us River Almanza MD LAB BLOOD ORDERABLES Fin al Result [facility] Department [place] [address] * Basic metabolic panel (02/13/2024 11:45 PM CUSTOMER SERVICE COORDINATOR) [facility] Sodium 141 135 - 145 mmol/L Potassium, pl 4.1 3.3 - 4.9 mmol/L [facility] Chloride 104 97 - 110 mmol/L [facility] CO2 29 22 - 32 mmol/L [facility] Anion gap 8 2 - 15 mmol/L [facility] BUN 19 6 - 25 mg/dL [facility] Creatinine 1.12 0.80 - 1.30 mg/dL [facility] Glucose 97 70 - 199 mg/dL [facility] Comment: Interpretive Data Fasting glucose >/= 126 [...] 2022. Calcium 9.3 8.5 - 10.3 mg/dL [facility]BR[facility]OST[facility] Blood 02/13/2024 11:4 5 PM CUSTOMER SERVICE COORDINATOR 02/14/2024 12:44 AM CUSTOMER SERVICE COORDINATOR us iRver Almanza MD LAB BLOOD ORDERABLES Fin al Result [facility] Department [place] [address] * eGFR (02/13/2024 12:06 AM CUSTOMER SERVICE COORDINATOR) eGFR 88 >=60 mL/min/1. 73 m2 Comment: [...] reviewed 2020. Blood 02/13/2024 12:0 6 AM CUSTOMER SERVICE COORDINATOR 02/13/2024 12:25 AM CUSTOMER SERVICE COORDINATOR us Yoko Calvin MD LAB BLOOD ORDERABLES Final Resul t [facility] [place] [address] * Differential, auto (02/13/2024 12:06 AM CUSTOMER SERVICE COORDINATOR) Neutrophil abs 3.6 1.5 - 6.5 K/cumm Imm gran abs 0.0 0.0 - 0.1 K/cumm [facility] Lymphocyte abs 1.6 0.8 - 3.3 K/cumm [facility] Monocyte abs 0.6 0.2 - 0.8 K/cumm [facility] Eosinophil abs 0.2 0.0 - 0.5 K/cumm [facility] Basophil abs 0.0 0.0 - 0.1 K/cumm [facility] Neutrophil pct 59.9 % [facility] Comment: Interpretive Data Percent cell count reference ranges are not reported, since discordance with absolute values may lead to misinterpretation of CBC data. Current Interpretive Data was last revised on 2017. Imm gran pct 0.3 % [facility] Comment: Interpretive Data Percent cell count reference ranges are not reported, since discordance with absolute values may lead to misinterpretation of CBC data. Current Interpretive Data was last revised on 2017. Lymphocyte pct 26.0 % [facility] Comment: Interpretive Data Percent cell count reference ranges are not reported, since discordance with absolute values may lead to misinterpretation of CBC data. Current Interpretive Data was last revised on 2017. Monocyte pct 9.6 % [facility] Comment: Interpretive Data Percent cell count reference ranges are not reported, since discordance with absolute values may lead to misinterpretation of CBC data. Current Interpretive Data was last revised on 2017. Eosinophil pct 3.9 % [facility] Comment: Interpretive Data Percent cell count reference ranges are not reported, since discordance with absolute values may lead to misinterpretation of CBC data. Current Interpretive Data was last revised on 2017. Basophil pct 0.3 % [facility] Comment: Interpretive Data Percent cell count reference ranges are not reported, since discordance with absolute values may lead to misinterpretation of CBC data. Current Interpretive Data was last revised on 2017. Blood 02/13/2024 12:0 6 AM CUSTOMER SERVICE COORDINATOR 02/13/2024 12:25 AM CUSTOMER SERVICE COORDINATOR us Yoko Calvin MD LAB BLOOD ORDERABLES Final Resul t [facility] [place] [address] * (ABNORMAL) CBC with auto differential (02/13/2024 12:06 AM CUSTOMER SERVICE COORDINATOR) WBC 6.0 3.8 - 9.9 K/cumm Hgb 12.5(L) 13.0 - 17.5 g/dL [facility] Hct 36.8(L) 38.9 - 50.3 % [facility] Plt 178 150 - 400 K/cumm [facility] MPV 9.5 9.1 - 12.3 fL [facility] RBC 4.27(L) 4.30 - 5.80 M/cumm [facility] MCV 86.2 81.3 - 96.4 fL [facility] MCH 29.3 27.1 - 33.3 pg [facility] MCHC 34.0 32.3 - 35.7 g/dL [facility] RDW CV 12.4 11.1 - 14.9 % [facility] RDW SD 39.2 35.7 - 48.1 fL [facility] NRBC abs 0.00 0.00 - 0.01 K/cumm [facility] Blood 02/13/2024 12:0 6 AM CUSTOMER SERVICE COORDINATOR 02/13/2024 12:25 AM CUSTOMER SERVICE COORDINATOR Yoko Calvin MD LAB BLOOD ORDERABLES Final Resul t Performing Organization Address [facility]/ZIP Co de Phone Number [facility] [place] [address] * Comprehensive metabolic panel (02/13/2024 12:06 AM CUSTOMER SERVICE COORDINATOR) Sodium 142 135 - 145 mmol/L Potassium, pl 4.1 3.3 - 4.9 mmol/L [facility] Chloride 105 97 - 110 mmol/L [facility] CO2 28 22 - 32 mmol/L [facility] Anion gap 9 2 - 15 mmol/L [facility] BUN 17 6 - 25 mg/dL [facility] Creatinine 0.96 0.80 - 1.30 mg/dL [facility] Glucose 103 70 - 199 mg/dL [facility] Comment: Interpretive Data Fasting glucose >/= 126 [...] 2022. Calcium 9.4 8.5 - 10.3 mg/dL [facility] Bilirubin, total 0.8 0.1 - 1.2 mg/dL [facility] Protein, pl 6.5 6.5 - 8.5 g/dL [facility] Albumin 3.9 3.5 - 5.0 g/dL [facility] Alk phos 96 40 - 130 Units/L [facility] ALT 12 7 - 55 Units/L [facility] AST 23 10 - 50 Units/L [facility] Blood 02/13/2024 12:0 6 AM CUSTOMER SERVICE COORDINATOR 02/13/2024 12:25 AM CUSTOMER SERVICE COORDINATOR Yoko Calvin MD LAB BLOOD ORDERABLES Final Resul t Performing Organization Address [facility]/ZIP Co de Phone Number ABR[facility]OST[facility] [place] [address] * XR Chest 1 Vw Portable (02/12/2024 1:50 PM CUSTOMER SERVICE COORDINATOR) Anatomical Region Laterality Modality Body, Chest N/A Computed Radiogr aphy 02/12/2024 1:52 PM CUSTOMER SERVICE COORDINATOR Impressions 02/12/2024 1:52 PM CUSTOMER SERVICE COORDINATOR Single view of the chest without comparison. ??Patient is rotated towards the left Both costophrenic angles are excluded from the [id number]. ??Patchy bibasilar airspace opacities, right greater than left, which may represent aspiration and/or pneumonia. ??No pneumothorax or visualized pleural effusion. ??Cardiomediastinal contours are normal. Electronically signed by: Roland Knott M.D. Narrative 02/12/2024 1:52 PM CUSTOMER SERVICE COORDINATOR EXAMINATION: XR CHEST 1 VIEW HISTORY: Altered mental status Procedure Note Roland Knott MD - 02/12/2024 EXAMINATION: XR CHEST 1 VIEW HISTORY: Altered mental status IMPRESSION: Single view of the chest without comparison. Patient is rotated towards the left Both costophrenic angles are excluded from the [id number]. Patchy bibasilar airspace opacities, right greater than left, which may represent aspiration and/or pneumonia. No pneumothorax or visualized pleural effusion. Cardiomediastinal contours are normal. Electronically signed by: Roland Knott M.D. Colt Smith MD IMG XR PROCEDURES Final Resu lt * Troponin I high-sensitivity 2-hour (02/12/2024 1:11 PM CUSTOMER SERVICE COORDINATOR) Trop I hs 10 <=35 ng/L Comment: Interpretive Data For further hscTnI resources including the diagnostic algorithm and an aid in interpretation, copy and paste this link: https://bjhlab.testcatalog.org/show/hsTrop-1 Current Interpretive Data last revised 2019. Trop I hs delta 1 ng/L [facility] Trop I hs interp Insignificant [facility] Blood 02/12/2024 1:11 PM CUSTOMER SERVICE COORDINATOR 02/12/2024 1:16 PM CUSTOMER SERVICE COORDINATOR us Colt Smith MD LAB BLOOD ORDERABLES Final R esult [facility] [place] [address] * (ABNORMAL) Urinalysis reflex to microscopic and culture Urine (02/12/2024 1:11 PM CUSTOMER SERVICE COORDINATOR) Color, ur Yellow Yellow Clarity, ur Cloudy(A) Clear [facility] Specific gravity, ur 1.023 1.003 - 1.030 [facility] pH, urine 7.0 [facility] Comment: Interpretive Data ? Urine pH is affected by diet, medications, systemic acid-base disturbances, and renal tubular function. ??pH may affect urinary stone formation. ??For example, urine pH below 6.0 may help reduce the tendency for calcium phosphate stones and pH greater than 6.0 may reduce the tendency for uric acid stone formation. Source: [facility] [email or web address] Current Interpretive Data was last revised on 2017 Protein, ur ql Trace Negative [facility] Glucose, ur ql Negative Negative [facility] Ketones, ur Negative Negative [facility] Bilirubin, ur Negative Negative [facility] Blood, ur Negative Negative [facility] Urobilinogen, ur <2.0 <2.0 mg/dL [facility] Nitrite, ur Negative Negative [facility] Leukocyte esterase, ur Negative Negative [facility] UA reflex comment Reflex conditions for microscopic UA and culture not met. [facility] Urine 02/12/2024 1:11 PM CUSTOMER SERVICE COORDINATOR 02/12/2024 1:47 PM CUSTOMER SERVICE COORDINATOR us Colt Smith MD LAB MICROBIOLOGY - GENERAL O RDERABLES Final Result [facility] [place] [address] * Respiratory pathogen panel Nasopharyngeal (02/12/2024 1:11 PM CUSTOMER SERVICE COORDINATOR) Pathologist [facility] Influenza A RNA Not Detected Not Detected Influenza B RNA Not Detected Not Detected [facility] RSV RNA Not Detected Not Detected [facility] COVID-19 RNA Not Detected Not Detected [facility] Coronavirus 229E RNA Not Detected Not Detected [facility] Coronavirus HKU1 RNA Not Detected Not Detected [facility] Coronavirus NL63 RNA Not Detected Not Detected [facility] Coronavirus OC43 RNA Not Detected Not Detected [facility] Adenovirus DNA Not Detected Not Detected [facility] Metapneumovirus RNA Not Detected Not Detected [facility] Rhinovirus/Enterov irus RNA Not Detected Not Detected [facility] Parainfluenza 1 RNA Not Detected Not Detected [facility] Parainfluenza 2 RNA Not Detected Not Detected [facility] Parainfluenza 3 RNA Not Detected Not Detected [facility] Parainfluenza 4 RNA Not Detected Not Detected [facility] B. pertussis DNA Not Detected Not Detected [facility] B. parapertussis DNA Not Detected Not Detected [facility] C. pneumoniae DNA Not Detected Not Detected [facility] M. pneumoniae DNA Not Detected Not Detected [facility] Nasopharyngeal 02/12/2024 1: 11 PM CUSTOMER SERVICE COORDINATOR 02/12/2024 1:37 PM CUSTOMER SERVICE COORDINATOR Narrative [facility] - 02/12/2024 2:34 PM CUSTOMER SERVICE COORDINATOR Is the Patient experiencing symptoms consistent with COVID?->Unknown Surveillance testing for transplant patient?->No ??Interpretive Data The Swarm64 FilmArray Respiratory Panel (RP2.1) assay is a [...] assay has FDA clearance for testing of GENERAL MERCHANDISE MANAGER swabs. ??The performance of additional specimen types has been assessed by the performing laboratory. ??The performance characteristics of this assay have been determined by [facility] Molecular Infectious Disease Laboratory. Current interpretive data was last revised on 21. Colt Smith MD LAB MICROBIOLOGY - GENERAL O RDERABLES Final Result [facility] [place] [address] * Drugs of Abuse Screen, Urine without Confirmation (02/12/2024 1:11 PM CUSTOMER SERVICE COORDINATOR) [facility] Amphetamine, ur Not Detected CutOff 500ng/mL Comment: Interpretive Data - Amphetamines: ??Samples containing greater than 500 ng/mL d-methamphetamine ??or other cross-reacting amphetamine compounds are reported as positive. ??Amphetamine immunoassays are subject to significant false positive rates due to cross-reactivity of non-amphetamine drugs. Confirmatory testing required for definitive results. Current Interpretive Data was last reviewed 2022. Barbiturates, ur Not Detected CutOff 200ng/mL [facility] Comment: Interpretive Data - Barbiturates: ??Samples containing greater than 200 ng/mL secobarbital or other cross-reacting barbiturate compounds are reported as positive. ??False positive and false negative results are possible. Confirmatory testing required for definitive results. Current Interpretive Data was last reviewed 2022. Benzodiazepines, ur Not Detected CutOff 100ng/mL [facility] Comment: Interpretive Data - Benzodiazepines: ??Samples containing greater than 100 ng/mL nordiazepam or other cross-reacting compounds are reported as positive. False positive and false negative results are possible. Confirmatory testing required for definitive results. Current Interpretive Data was last reviewed 2022. Cannabinoids, ur Not Detected CutOff 50 ng/mL [facility] Comment: Interpretive Data - Cannabinoids: ??Samples containing greater than 50 ng/mL delta-9 THC -COOH or other cross-reacting compounds are reported as positive. ??False positive and false negative results are possible. ??Confirmatory testing required for definitive results. Current Interpretive Data was last reviewed 2022. Cocaine, ur Not Detected CutOff 150ng/mL [facility] Comment: Interpretive Data - Cocaine: ??Samples containing greater than 150 ng/mL benzoylecgonine or other cross-reacting compounds are reported as positive. False positive and false negative results are possible. Confirmatory testing required for definitive results. Current Interpretive Data was last reviewed 2022. Fentanyl, Ur Not Detected CutOff 5 ng/mL [facility] Comment: Interpretive Data - Fentanyl: ?? Samples containing greater than 5 ng/mL norfentanyl, fentanyl, or other cross-reacting fentanyl compounds are reported as positive. False positive and false negative results are possible. Confirmatory testing required for definitive results. Current Interpretive Data was last reviewed 2023. Methadone, ur Not Detected CutOff 300ng/mL [facility] Comment: Interpretive Data - Methadone: ??Samples containing greater than 300 ng/mL d,l-methadone or other cross-reacting compounds are reported as positive. ??False positive and false negative results are possible. Confirmatory testing required for definitive results. Current Interpretive Data was last reviewed 2022. Opiates, ur Not Detected CutOff 300ng/mL [facility] Comment: Interpretive Data - Opiates: ??Samples containing greater than 300 ng/mL morphine or other cross-reacting compounds are reported as positive. ??False positive and false negative results are possible. Confirmatory testing required for definitive results. Current Interpretive Data was last reviewed 2022. Oxycodone, ur Not Detected CutOff 100ng/mL [facility] Comment: Interpretive Data - Oxycodone: ??Samples containing greater than 100 ng/mL oxycodone or other cross-reacting compounds are reported as ??positive. ??False positive and false negative results are possible. Confirmatory testing required for definitive results. Current Interpretive Data was last reviewed 2022. Phencyclidine, ur Not Detected CutOff 25 ng/mL [facility] Comment: Interpretive Data - Phencyclidine: ??Samples containing greater than 25 ng/mL phencyclidine or other cross-reacting compounds are reported as positive. ??False positive and false negative results are possible. Confirmatory testing required for definitive results. Current Interpretive Data was last reviewed 2022. Urine Creatinine 192 mg/dL [facility] Comment: Interpretive Data Urine Creatinine: < 10 mg/dL is extremely dilute = or > 10 but < 20 mg/dL is dilute = or > 20 mg/dL is normal Current Interpretive Data was last revised on 2017. Urine 02/12/2024 1:11 PM CUSTOMER SERVICE COORDINATOR 02/12/2024 2:29 PM CUSTOMER SERVICE COORDINATOR Narrative [facility] - 02/12/2024 2:30 PM CUSTOMER SERVICE COORDINATOR Drug of Abuse screening is performed by immunoassay for medical purposes only. ??This is not to be used for Pain Management purposes. us Colt Smith MD LAB URINE ORDERABLES Final R esult [facility] Department [place] [address] * ECG 12-LEAD (02/12/2024 1:02 PM CUSTOMER SERVICE COORDINATOR) Narrative [facility] [place] 02/12/2024 1:02 PM CUSTOMER SERVICE COORDINATOR Colt Smith MD ? 02/12/2024 ??1:04 PM [...] Colt Smith MD ECG ORDERABLES Final Result [facility] * CT Head WO Contrast (02/12/2024 11:50 AM CUSTOMER SERVICE COORDINATOR) Anatomical Region Laterality Modality Head and Neck N/A Computed Tomogra phy 02/12/2024 12:0 2 PM CUSTOMER SERVICE COORDINATOR Impressions 02/12/2024 12:02 PM CUSTOMER SERVICE COORDINATOR No acute intracranial process. ??Likely age-related volume loss. Electronically signed by: Cande Gillespie M.D. Narrative 02/12/2024 12:02 PM CUSTOMER SERVICE COORDINATOR EXAMINATION: CT head without contrast HISTORY: Alert [...] loss. Electronically signed by: Cande Gillespie M.D. Colt Smith MD IM CT PROCEDURES Final Resu lt * Troponin I high-sensitivity series (baseline, 2hr, 4hr, 6hr) (02/12/2024 11:19 AM CUSTOMER SERVICE COORDINATOR) Trop I hs 9 <=35 ng/L Comment: Interpretive Data For further hscTnI resources including the diagnostic algorithm and an aid in interpretation, copy and paste this link: https://bjhlab.testcatalog.org/show/hsTrop-1 Current Interpretive Data last revised 2019. Blood 02/12/2024 11:1 9 AM CUSTOMER SERVICE COORDINATOR 02/12/2024 11:32 AM CUSTOMER SERVICE COORDINATOR us Colt Smith MD LAB BLOOD ORDERABLES Final R esult Performing Organization Address City/[facility] Co de Phone Number [facility] [email or web address] [address] * Sepsis Lactate w/ Reflex (02/12/2024 11:19 AM CUSTOMER SERVICE COORDINATOR) Sepsis Lactate 1.6 0.7 - 2.0 mmol/L Blood 02/12/2024 11:1 9 AM CUSTOMER SERVICE COORDINATOR 02/12/2024 11:30 AM CUSTOMER SERVICE COORDINATOR us Colt Smith MD LAB BLOOD ORDERABLES Final R esult Performing Organization Address [facility] de Phone Number [facility] [place] [address] * eGFR (02/12/2024 11:19 AM CUSTOMER SERVICE COORDINATOR) eGFR 77 >=60 mL/min/1. 73 m2 Comment: [...] reviewed 2020. Blood 02/12/2024 11:1 9 AM CUSTOMER SERVICE COORDINATOR 02/12/2024 11:32 AM CUSTOMER SERVICE COORDINATOR Colt Smith MD LAB BLOOD ORDERABLES Final R esult [facility] Department [place] [address] * Differential, auto (02/12/2024 11:19 AM CUSTOMER SERVICE COORDINATOR) Neutrophil abs 3.5 1.5 - 6.5 K/cumm Imm gran abs 0.0 0.0 - 0.1 K/cumm [facility] Lymphocyte abs 1.1 0.8 - 3.3 K/cumm [facility] Monocyte abs 0.5 0.2 - 0.8 K/cumm [facility] Eosinophil abs 0.2 0.0 - 0.5 K/cumm [facility] Basophil abs 0.0 0.0 - 0.1 K/cumm [facility] Neutrophil pct 66.3 % [facility] Comment: Interpretive Data Percent cell count reference ranges are not reported, since discordance with absolute values may lead to misinterpretation of CBC data. Current Interpretive Data was last revised on 2017. Imm gran pct 0.2 % [facility] Comment: Interpretive Data Percent cell count reference ranges are not reported, since discordance with absolute values may lead to misinterpretation of CBC data. Current Interpretive Data was last revised on 2017. Lymphocyte pct 20.8 % [facility] Comment: Interpretive Data Percent cell count reference ranges are not reported, since discordance with absolute values may lead to misinterpretation of CBC data. Current Interpretive Data was last revised on 2017. Monocyte pct 9.2 % [facility] Comment: Interpretive Data Percent cell count reference ranges are not reported, since discordance with absolute values may lead to misinterpretation of CBC data. Current Interpretive Data was last revised on 2017. Eosinophil pct 2.9 % [facility] Comment: Interpretive Data Percent cell count reference ranges are not reported, since discordance with absolute values may lead to misinterpretation of CBC data. Current Interpretive Data was last revised on 2017. Basophil pct 0.6 % [facility] Comment: Interpretive Data Percent cell count reference ranges are not reported, since discordance with absolute values may lead to misinterpretation of CBC data. Current Interpretive Data was last revised on 2017. Blood 02/12/2024 11:1 9 AM CUSTOMER SERVICE COORDINATOR 02/12/2024 11:32 AM CUSTOMER SERVICE COORDINATOR us Colt Smith MD LAB BLOOD ORDERABLES Final R esult Performing Organization Address City/[facility]/ZIP Co de Phone Number [facility] Department [place] [address] * Thyroid Function Knott (02/12/2024 11:19 AM CUSTOMER SERVICE COORDINATOR) Pathologist [facility] TSH 0.76 0.30 - 4.20 mcIUnit/mL Blood 02/12/2024 11:1 9 AM CUSTOMER SERVICE COORDINATOR 02/12/2024 11:32 AM CUSTOMER SERVICE COORDINATOR us Colt Smith MD LAB BLOOD ORDERABLES Final R esult Performing Organization Address City/[facility]/ZIP Co de Phone Number [facility] [place] [address] * CBC with auto differential (02/12/2024 11:19 AM CUSTOMER SERVICE COORDINATOR) WBC 5.2 3.8 - 9.9 K/cumm Hgb 13.2 13.0 - 17.5 g/dL [facility] Hct 39.2 38.9 - 50.3 % [facility] Plt 191 150 - 400 K/cumm [facility] MPV 9.4 9.1 - 12.3 fL [facility] RBC 4.44 4.30 - 5.80 M/cumm [facility] MCV 88.3 81.3 - 96.4 fL [facility] MCH 29.7 27.1 - 33.3 pg [facility] MCHC 33.7 32.3 - 35.7 g/dL [facility] RDW CV 12.5 11.1 - 14.9 % [facility] RDW SD 40.3 35.7 - 48.1 fL [facility] NRBC abs 0.00 0.00 - 0.01 K/cumm [facility] Blood 02/12/2024 11:1 9 AM CUSTOMER SERVICE COORDINATOR 02/12/2024 11:32 AM CUSTOMER SERVICE COORDINATOR us Colt Smith MD LAB BLOOD ORDERABLES Final R esult [facility] [place] [address] * Blood culture Blood Peripheral (02/12/2024 11:19 AM CUSTOMER SERVICE COORDINATOR) Report Final Report: No growth Blood (Peripheral) 02/12/2024 11:19 AM CUSTOMER SERVICE COORDINATOR 02/12/2024 11:45 AM CUSTOMER SERVICE COORDINATOR Narrative [facility] - 02/16/2024 12:00 PM CUSTOMER SERVICE COORDINATOR From a different site than #1. Draw [...] performance characteristics have been verified by the [facility] Microbiology Laboratory. For questions about this culture, contact the Microbiology Laboratory at [phone]. Interpretive data was last revised on 23. Colt Smith MD LAB MICROBIOLOGY - GENERAL O RDERABLES Final Result [facility] [place] [address] * Blood culture Blood Peripheral (02/12/2024 11:19 AM CUSTOMER SERVICE COORDINATOR) Report Final Report: No growth Blood (Peripheral) 02/12/2024 11:19 AM CUSTOMER SERVICE COORDINATOR 02/12/2024 11:45 AM CUSTOMER SERVICE COORDINATOR Narrative [facility] - 02/16/2024 12:00 PM CUSTOMER SERVICE COORDINATOR Draw Blood cultures before administration of Antibiotics [...] performance characteristics have been verified by the [facility] Microbiology Laboratory. For questions about this culture, contact the Microbiology Laboratory at [phone]. Interpretive data was last revised on 23. us Colt Smith MD LAB MICROBIOLOGY - GENERAL O RDERABLES Final Result Performing Organization Address [facility] Co de Phone Number [facility] [place] [address] * Phosphorus (02/12/2024 11:19 AM CUSTOMER SERVICE COORDINATOR) Phosphorus, pl 3.8 2.3 - 4.5 mg/dL Blood 02/12/2024 11:1 9 AM CUSTOMER SERVICE COORDINATOR 02/12/2024 11:32 AM CUSTOMER SERVICE COORDINATOR us Colt Smith MD LAB BLOOD ORDERABLES Final R esult Performing Organization Address [facility] Co de Phone Number [facility] [place] [address] * Magnesium (02/12/2024 11:19 AM CUSTOMER SERVICE COORDINATOR) Magnesium 2.1 1.4 - 2.5 mg/dL Blood 02/12/2024 11:1 9 AM CUSTOMER SERVICE COORDINATOR 02/12/2024 11:32 AM CUSTOMER SERVICE COORDINATOR us Colt Smith MD LAB BLOOD ORDERABLES Final R esult Performing Organization Address [facility] de Phone Number [facility] [place] [address] * Blood gas, venous (02/12/2024 11:19 AM CUSTOMER SERVICE COORDINATOR) pH, Venous 7.38 7.32 - 7.43 PCO2, Venous 50 40 - 50 mmHg [facility] PO2, Venous 28 mmHg [facility] Comment: Interpretive Data No Reference Range Established Current Interpretive Data was last revised on 2017. HCO3 Venous, Calculated 30 20 - 30 mmol/L [facility] BE, venous 3 mmol/L [facility] Comment: Interpretive Data No Reference Range Established Current Interpretive Data was last revised on 2017. Blood 02/12/2024 11:1 9 AM CUSTOMER SERVICE COORDINATOR 02/12/2024 11:29 AM CUSTOMER SERVICE COORDINATOR us Colt Smith MD LAB BLOOD ORDERABLES Final R esult Performing Organization Address [facility] de Phone Number [facility] [email or web address] [address] * Creatine kinase (CK), total (02/12/2024 11:19 AM CUSTOMER SERVICE COORDINATOR) CK 224 40 - 300 Units/L Blood 02/12/2024 11:1 9 AM CUSTOMER SERVICE COORDINATOR 02/12/2024 11:32 AM CUSTOMER SERVICE COORDINATOR us Jose James MD LAB BLOOD ORDERABLES Final R esult Performing Organization Address [facility] [place] [address] * Ammonia (02/12/2024 11:19 AM CUSTOMER SERVICE COORDINATOR) Ammonia 23 <=50 mcmol/L Blood 02/12/2024 11:1 9 AM CUSTOMER SERVICE COORDINATOR 02/12/2024 11:26 AM CUSTOMER SERVICE COORDINATOR Colt Smith MD LAB BLOOD ORDERABLES Final R esult Performing Organization Address [facility] [place] [address] * Ethanol (02/12/2024 11:19 AM CUSTOMER SERVICE COORDINATOR) Ethanol <10 <=10 mg/dL Comment: Interpretive Data Legal limit of intoxication > or = 80 mg/dL Levels > or = 400 mg/dL are potentially TOXIC. Current interpretive data was last revised on 2018. Blood 02/12/2024 11:1 9 AM CUSTOMER SERVICE COORDINATOR 02/12/2024 11:32 AM CUSTOMER SERVICE COORDINATOR us Colt Smith MD LAB BLOOD ORDERABLES Final R esult [facility] [place] [address] * Hepatic function panel (02/12/2024 11:19 AM CUSTOMER SERVICE COORDINATOR) Pathologist [facility] Bilirubin, total 0.9 0.1 - 1.2 mg/dL Bilirubin, direct <0.2 0.1 - 0.3 mg/dL [facility] Protein, pl 7.1 6.5 - 8.5 g/dL [facility] Albumin 4.0 3.5 - 5.0 g/dL [facility] Alk phos 107 40 - 130 Units/L [facility] ALT 14 7 - 55 Units/L [facility] AST 22 10 - 50 Units/L [facility] Blood 02/12/2024 11:1 9 AM CUSTOMER SERVICE COORDINATOR 02/12/2024 11:32 AM CUSTOMER SERVICE COORDINATOR us Colt Smith MD LAB BLOOD ORDERABLES Final R esult Performing Organization Address [facility]/ZIP Co de Phone Number [facility] [place] [address] * Basic metabolic panel (02/12/2024 11:19 AM CUSTOMER SERVICE COORDINATOR) Pathologist [facility] Sodium 144 135 - 145 mmol/L Potassium, pl 4.5 3.3 - 4.9 mmol/L [facility] Chloride 107 97 - 110 mmol/L [facility] CO2 30 22 - 32 mmol/L [facility] Anion gap 7 2 - 15 mmol/L [facility] BUN 18 6 - 25 mg/dL [facility] Creatinine 1.08 0.80 - 1.30 mg/dL [facility] Glucose 100 70 - 199 mg/dL [facility] Comment: Interpretive Data Fasting glucose >/= 126 [...] 2022. Calcium 9.5 8.5 - 10.3 mg/dL [facility] Blood 02/12/2024 11:1 9 AM CUSTOMER SERVICE COORDINATOR 02/12/2024 11:32 AM CUSTOMER SERVICE COORDINATOR us Colt Smith MD LAB BLOOD ORDERABLES Final R esult [facility] [place] [address] * POCT glucose (02/12/2024 11:07 AM CUSTOMER SERVICE COORDINATOR) Glucose, POC 106 70 - 199 mg/dL Blood 02/12/2024 11:0 7 AM CUSTOMER SERVICE COORDINATOR 02/12/2024 11:07 AM CUSTOMER SERVICE COORDINATOR us Jose James MD LAB POCT ORDERABLES - DEVICE Final Result [facility] [place] [address] from Last 3 Months Insurance [employer] [facility] BL CHOICE [place] Advance Directives For more information, please contact: [phone] * LIMITED - No CPR (Latest Code [...] 10:02 PM 02/13/2024 3:12 AM Care Teams Spray Applicator Relationship Specialty Start Date End Date Ravindra Rizo MD PhD [address] [place] [address] PCP - General Neurology 05/25/23
--- OUTSIDE RECORDS SUMMARY | 2024-03-17 23:12 | XMS_ITS | Encounter Summary ---
Author Organization [facility] Address [address] [place] [address] Phone Care Team Providers Care Fur Nailer Name Role Phone Josh Hightower MD Primary Care Provider Ravindra Rizo MD PhD Primary Care Provider +- [phone] Reason for Visit * Reason Onset Date Comments Prior Auth 06/05/2021 Patient insuranc e does not require Prior auth is not needed for [place] code [id number] Encounter Details Date Type Department Care Team (Late st Contact Info) Description 06/05/2021 Documentation [facility] [address] [facility] [address] [place] [address] [place] [id number] Jaylyn Brand CNA Prior Auth (Patient insurance does not require Prior auth is not needed for LP code [id number]) Social History Tobacco Use Types Packs/Day Years Used Date Smoking Tobacco: Never Smokeless Tobacco: Never AUDIT-C Answer Date Recorded Q1: How often do you have a drink containing alc ohol? 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 [facility] ring surveillance. [place] 02/21/2024 02/21/2024 02/29/2024 8:[address] COVID: Suspected 02/29/2024 02/29/2024 02/29/2024 2:17 PM WASH HELPER COVID19 02/29/2024 02/29/2024 03/12/2024 3:05 AM WASH HELPER documented as of this encounter Care Teams Fur Nailer Relationship Specialty Start Date End Date Josh Hightower MD PCP - General Family Medicine 09/06/20 05/24/23 Ravindra Rizo MD PhD [address] [place] [address] PCP - General Neurology 05/25/23 documented as of this encounter
== END 2024-03-16 11:37 | disposition expired ==
PROVIDERS: Emergency Provider Internal Medicine Critical Care Medicine; PCP Family Medicine
DX: J69.0 Pneumonitis due to inhalation of food and vomit (principal); J96.01 Acute respiratory failure with hypoxia; I10 Essential (primary) hypertension; G30.9 Alzheimer's disease, unspecified; F02.80 Dementia in other diseases classified elsewhere, unspecified severity, without behavioral disturbance, psychotic disturbance, mood disturbance, and anxiety; Z79.899 Other long term (current) drug therapy; Z20.822 Contact with and (suspected) exposure to COVID-19
CPT/HCPCS: 36415; 71045; 80053; 83605; 83690; 83880; 84484; 85025; 85610; 87040; 87637; 93005; 96365; 96375; 99284; J1596; J2270; J2543